=== PATIENT | female | born 1950 | race Caucasian/White ===

== ENCOUNTER 2021-01-27 13:24 | Outpatient (REF) | payer MEDICARE, OTHER, SELFPAY ==
[2021-01-27 15:35] LABS: Hematocrit 39.5 % (37-47); Hemoglobin 12.8 g/dl (12.0-16.0); Mean Corpuscular HGB Conc 32.4 g/dl (31.0-35.0); Mean Corpuscular Hemoglobin 29.6 pg (27.0-33.0); Mean Corpuscular Volume 91.2 fL (80-98); Mean Platelet Volume 10.2 fL (9.4-12.3); Platelet Count 367 X10*3/uL (160-400); Red Blood Count 4.33 X10*6/uL (4.20-5.50); Red Cell Distribution Width 13.4 % (11.0-16.0); White Blood Count 6.3 X10*3/uL (4.8-10.8)
[2021-01-27 16:04] LABS: Alanine Aminotransferase 19 U/L (0-31); Albumin Level 4.5 g/dL (3.5-5.0); Alkaline Phosphatase 65 U/L (39-117); Anion Gap 13 (12-20); Aspartate Amino Transferase 27 U/L (5-31); Bilirubin Total 0.3 mg/dL (0.0-1.0); Blood Urea Nitrogen 21 mg/dL (9-16); Calcium 9.9 mg/dL (8.4-10.2); Carbon Dioxide 27 mmol/L (22-29); Chloride 104 mmol/L (96-108); Estimated Glomerular Filt Rate > 60; Glucose Random 92 mg/dL (60-115); Potassium 4.3 mmol/L (3.3-5.1); Sodium 140 mmol/L (135-145); Total Protein 7.1 g/dL (6.5-8.0)
== END 2021-01-27 13:25 | disposition home or self-care (01) ==
LOC: HO.LAB 13:24
PROVIDERS: PCP Family Medicine; Referring Provider Family Medicine; Visit Provider Nurse Practitioner Family
DX: Z01.818 Encounter for other preprocedural examination (principal); K21.9 Gastro-esophageal reflux disease without esophagitis
CPT/HCPCS: 36415; 80053; 85027; 99202

== ENCOUNTER → 2021-03-09 14:48 | Outpatient (BNVA) | payer MEDICARE, OTHER, SELFPAY | PROVIDERS: PCP Internal Medicine; Referring Provider Nurse Practitioner Family; Visit Provider Internal Medicine | DX: Z01.810 Encounter for preprocedural cardiovascular examination (principal); I25.10 Atherosclerotic heart disease of native coronary artery without angina pectoris; I10 Essential (primary) hypertension; E78.5 Hyperlipidemia, unspecified | CPT/HCPCS: 93005; 99202 ==

== ENCOUNTER 2021-03-23 08:44 | Day surgery (SDC) | payer MEDICARE, OTHER, SELFPAY ==
[2021-03-16 14:34] VITALS: BMI 28.1
--- NOTE | 2021-03-20 08:28 | HO.ANESPROP2 ---
Documented by User: Lita Simonney 03/20/21 08:30 HPI - Anesthesia Eval Consult details Narrative: 71yo F for Colonoscopy Cardiac cleared at low risk PMFSH Active Problems Active Problems: All Active Problems (Updated 03/09/21 @ 15:43 by Korey Coffman MD) Preoperative cardiovascular examination (Acute) Atherosclerotic cardiovascular disease (Acute) Other and unspecified hyperlipidemia (Acute) Essential hypertension (Acute) Past Medical History Medical History Essential hypertension Other and unspecified hyperlipidemia Family History Family History Father Myocardial infarction Hypertension Mother Diabetes Sister CVA (cerebral vascular accident) S/P CABG x 4 Sister Myocardial infarction Surgical History Surgical History H/O bilateral hip replacements History of cardiac catheterization (~07/05/18) History of esophagogastroduodenoscopy (EGD) Hx of blepharoplasty Hx of colonoscopy Social History Social History Are you a primary specialist wound care to a significant other at home: Yes ( had CVA) Patient Tobacco Use Status: Never used Tobacco Are you DNR?: No Advance Directives: No Advance Directives Information Provided: No Advance Directives on File: No Meds Allergies Allergy/AdvReac Type Severity Reaction Status Date / Time silver sulfadiazine Allergy Unknown RASH Verified 03/16/21 14:23 [From SILVADENE] Sulfa (Sulfonamide Allergy Unknown mild Verified 03/16/21 14:23 Antibiotics) Home Medications Medication Instructions Recorded Confirmed Last Taken Type amlodipine 5 mg-benazepril 10 mg 1 cap PO DAILY 01/26/21 03/16/21 Unknown History capsule (Lotrel) ascorbate calcium (vitamin C) 500 500 mg PO BID 01/26/21 03/16/21 Unknown History mg tablet calcium 600 mg-D3 800 unit-mag11 1 tab PO DAILY 01/26/21 03/16/21 Unknown History 50 lm-jncz-zafxhe-kayleen-s.borat tablet cholecalciferol (vitamin D3) 50 50 mcg PO DAILY 01/26/21 03/16/21 Unknown History mcg (2,000 unit) capsule coenzyme Q10 300 mg capsule 300 mg PO DAILY 01/26/21 03/16/21 Unknown History cranberry fruit 400 mg tablet 400 mg PO DAILY 01/26/21 03/16/21 Unknown History fluticasone propionate 50 2 spray INTRANASAL DAILY 01/26/21 03/16/21 Unknown History mcg/actuation nasal spray,suspension (Flonase Allergy Relief) glucosamine sulfate 2KCl 1,000 mg 1,000 mg PO BID 01/26/21 03/16/21 Unknown History capsule metoprolol tartrate 37.5 mg tablet 37.5 mg PO DAILY 01/26/21 03/16/21 03/23/21 History cjpomsyvoisw-famxgwzg-pujzwl tablet 1 tab PO DAILY 01/26/21 03/16/21 Unknown History omega-3 fatty acids 1,000 mg 1,000 mg PO DAILY 01/26/21 03/16/21 Unknown History capsule turmeric root extract 500 mg 500 mg PO DAILY 01/26/21 03/16/21 Unknown History capsule zoledronic acid 4 mg intravenous mg IV 01/26/21 03/09/21 Unknown History solution rosuvastatin 10 mg tablet 10 mg PO BEDTIME 01/27/21 03/16/21 Unknown History aspirin 81 mg tablet,delayed 81 mg PO .QOD tab 03/09/21 03/16/21 Unknown History release (Adult Low Dose Aspirin) pantoprazole 40 mg tablet,delayed 40 mg PO DAILY PRN 03/09/21 03/16/21 03/23/21 History release Exam Exam Date and Time: March 20, 2021 0828 Height,Weight and Vital Signs: Height 5 ft 1 in Weight 67.585 kg Pertinent Lab Results Pertinent Lab Results: Laboratory Tests 01/27/21 01/27/21 15:15 15:15 WBC 6.3 Hgb 12.8 Hct 39.5 Plt Count 367 Sodium 140 Potassium 4.3 Chloride 104 Carbon Dioxide 27 BUN 21 H Creatinine 0.68 Narrative Narrative: EKG 02/2021 sinus rhythm at 66/Min; mild SC prolongation to 202 milliseconds; normal QTc Cardiac cath 2018 mild disease only and no hemodynamically significant lesions and there was no gradient across aortic valve.? LVEDP was normal.?? Assessment and Plan Assessment Anesthesia Assessment: Chart Reviewed Documented by User: Patience Cam MD 03/23/21 09:46 [facility] Past Medical History Medical History Essential hypertension Other and unspecified hyperlipidemia Family History Family History Father Myocardial infarction Hypertension Mother Diabetes Sister CVA (cerebral vascular accident) S/P CABG x 4 Sister Myocardial infarction Surgical History Surgical History H/O bilateral hip replacements History of cardiac catheterization (~07/05/18) History of esophagogastroduodenoscopy (EGD) Hx of blepharoplasty Hx of colonoscopy History of Problems with Anesthesia: No Social History Social History Are you a primary specialist wound care to a significant other at home: Yes ( had CVA) Patient Tobacco Use Status: Never used Tobacco Are you DNR?: No Advance Directives: No Advance Directives Information Provided: No Advance Directives on File: No Meds Allergies Allergy/AdvReac Type Severity Reaction Status Date / Time silver sulfadiazine Allergy Unknown RASH Verified 03/16/21 14:23 [From SILVADENE] Sulfa (Sulfonamide Allergy Unknown mild Verified 03/16/21 14:23 Antibiotics) Home Medications Medication Instructions Recorded Confirmed Last Taken Type amlodipine 5 mg-benazepril 10 mg 1 cap PO DAILY 01/26/21 03/16/21 Unknown History capsule (Lotrel) ascorbate calcium (vitamin C) 500 500 mg PO BID 01/26/21 03/16/21 Unknown History mg tablet calcium 600 mg-D3 800 unit-mag11 1 tab PO DAILY 01/26/21 03/16/21 Unknown History 50 qi-kkfy-ykfjsn-kayleen-s.borat tablet cholecalciferol (vitamin D3) 50 50 mcg PO DAILY 01/26/21 03/16/21 Unknown History mcg (2,000 unit) capsule coenzyme Q10 300 mg capsule 300 mg PO DAILY 01/26/21 03/16/21 Unknown History cranberry fruit 400 mg tablet 400 mg PO DAILY 01/26/21 03/16/21 Unknown History fluticasone propionate 50 2 spray INTRANASAL DAILY 01/26/21 03/16/21 Unknown History mcg/actuation nasal spray,suspension (Flonase Allergy Relief) glucosamine sulfate 2KCl 1,000 mg 1,000 mg PO BID 01/26/21 03/16/21 Unknown History capsule metoprolol tartrate 37.5 mg tablet 37.5 mg PO DAILY 01/26/21 03/16/21 03/23/21 History yeugyefszlat-ljtwiaqt-ejmfjm tablet 1 tab PO DAILY 01/26/21 03/16/21 Unknown History omega-3 fatty acids 1,000 mg 1,000 mg PO DAILY 01/26/21 03/16/21 Unknown History capsule turmeric root extract 500 mg 500 mg PO DAILY 01/26/21 03/16/21 Unknown History capsule zoledronic acid 4 mg intravenous mg IV 01/26/21 03/09/21 Unknown History solution rosuvastatin 10 mg tablet 10 mg PO BEDTIME 01/27/21 03/16/21 Unknown History aspirin 81 mg tablet,delayed 81 mg PO .QOD tab 03/09/21 03/16/21 Unknown History release (Adult Low Dose Aspirin) pantoprazole 40 mg tablet,delayed 40 mg PO DAILY PRN 03/09/21 03/16/21 03/23/21 History release Exam Airway Mallampati Class: II TM Dist: >3cm Neck ROM: Full Heart: RRR Lungs: CTA Assessment and Plan Assessment Anesthesia Assessment: Anesthesia Plan Discussed Final Anesthetic Review History of Problems with Anesthesia: No NPO: Yes ASA Class: II Final Preanesthetic Review: Meds/Allgs Chart Reviewed, Consent Obtained/Reviewed and Anes Risks/Benef Reviewed Patient Risk: Low Procedure Risk: Intermediate Anesthetic Plan Anesthetic Plan: MAC: Disposition: Standard PACU
[2021-03-23 09:15] VITALS: BP 152/80; PULSE 75; RESP 16; TEMP 37; O2SAT 98
[2021-03-23] MEDS: Lactated Ringers 1,000 ML 100 ML IVCONT (09:35)
--- NOTE | 2021-03-23 10:23 | MHC.SHP ---
Pre-Procedural Eval Section A Date of Service: 03/23/21 The patient is an INPATIENT: No The History & Physical has been completed within 30 days and I have reviewed it.: No Section B Chief Complaint: Screening Details of Present Illness: Colon cancer screening, GERD Relevant Family History (Specify if Yes): No Relevant Social History: None Present Medications: see Short Stay Collaborative assessment Medical History: Significant History (Hypertension, hyperlipidemia, coronary artery disease) History of Previous Operations: Relevant previous surgery/procedure and date(s) (Bilateral hip replacement, EGD, colonoscopy, history of cardiac catheterization) Allergies: Allergies Allergy/AdvReac Type Severity Reaction Status Date / Time silver sulfadiazine Allergy Unknown RASH Verified 03/16/21 14:23 [From SILVADENE] Sulfa (Sulfonamide Allergy Unknown mild Verified 03/16/21 14:23 Antibiotics) Review of Systems Sugical H&P ROS: Negative: Constitution, Cardiovascular, Respiratory and Gastrointestinal Exam Surgical H&P Exam: Normal: Heart, Normal: Lungs, Normal: Extremities and Normal: Abdomen Plan Diagnosis/Plan: Unchanged I have reviewed the history and physical and performed a pertinent physical examination on my patient. No changes have occurred unless specified.
--- NOTE | 2021-03-23 10:30 | P.BOP_ITS ---
Brief Operative Note Date of Service: 03/23/21 Pre-op diagnosis: Colon cancer screening, GERD Post-op diagnosis: other (GERD, Gastritis, colon polyp, diverticulosis) Procedure: FLEXIBLE TRANSORAL UPPER GASTROINTESTINAL ENDOSCOPY WITH BIOPSIES AND COLONOSCOPY TILL CECUM WITH BIOPSIES UPPER ENDOSCOPY Consent: Indications for the procedure and potential complications of bleeding, perforation, reaction to medications and missed diagnosis were discussed with the patient and informed consent was obtained. Instrument: Olympus GIF H 190 mid size upper endoscope Monitoring: Vital signs and clinical assessment, continuous EKG monitoring, Pulse oximetry, Carbon Dioxide monitoring and blood pressure monitoring were done throughout the procedure. Procedure: The patient was placed in the left lateral decubitis position and pre-procedure medications were administered and a bite block was placed. The endoscope was inserted into the mouth and advanced under direct vision to the third part of duodenum. A careful inspection was made as the upper endoscope was withdrawn including a retroflexed examination of the proximal stomach; Findings and interventions are described below. Findings: Larynx: Normal Esophagus: GE junction at 36 cms. Irregular Z line - biopsied to check for Whiteside's. Stomach: Mild gastric erythema. Biopsies were obtained. Grade 2 flap valve on retroflexed examination of the cardia. Duodenum: Normal bulb and descending duodenum Intervention: Biopsies as noted above COLONOSCOPY PROCEDURE NOTE Consent: Indications for the procedure and potential complications of bleeding, perforation, reaction to medications and missed diagnosis were discussed with the patient and informed consent was obtained. Instrument: Olympus PCF H 190 L variable stiffness pediatric colonoscope Monitoring: Vital signs and clinical assessment, intermittent blood pressure monitoring, continuous EKG monitoring, Pulse oximetry and Carbon Dioxide monitoring were done throughout the procedure. Colon withdrawl time was 17 minutes. Procedure: The patient was placed in the left lateral decubitis position and pre-procedure medications were administered. After a digital rectal examination of the ano-rectum, the video colonoscope was inserted into the rectum and advanced through the colon to the cecum. The colonoscope was slowly withdrawn in a retrograde panoramic fashion and the colon mucosa was carefully examined including a retroflexed view of the rectum. Findings and interventions are described below. Procedure Difficulty: : Without difficulty Findings: Terminal Ileum: Not evaluated Cecum: Normal Ascending Colon: Normal Transverse Colon: Normal Descending Colon: Moderate diverticulosis Sigmoid Colon: Severe diverticulosis Rectum: A 5-6 mm diminutive appearing polyp removed with a cold biopsy Ano-rectum: Normal Colon preparation: [Excellent] [Good] [Fair] [poor] Impression and Post Procedure Diagnosis: Endoscopy Findings: ESOPHAGUS: Irregular Z line - biopsied to check for Whiteside's. STOMACH: Gastritis Colonoscopy Findings: One diminutive appearing polyp removed Moderate to severe diverticulosis seen in the left colon Plan: Await pathology results Patient has an appointment on 04/13/21 in the GI Clinic with Azul Pizarro FNP- BC. Repeat Colonoscopy interval based on path results - in 5 years if polyps are adenomatous and 10 years if polyps are hyperplastic. Above findings were reviewed with the patient and colon polyps and diverticulosis handouts were given in the discharge area Surgeon: Janet Poe MD Anesthesia: MAC (Dr Cam) Was an Manufacturing Engineering Manager used for this Procedure?: Yes Manufacturing Engineering Manager: Ko Amaya Estimated blood loss (mL): 0 Pathology: other (A- GASTRIC ANTRUM BXS R/O H. PYLORI B- DISTAL ESOPHAGUS BXS R/O WHITESIDE'S C- RECTAL POLYP) Condition: stable Disposition: PACU
[2021-03-23 11:26] VITALS: BP 112/60; PULSE 54; RESP 18; TEMP 36; O2SAT 99
[2021-03-23 11:38] VITALS: PULSE 60; RESP 18; O2SAT 99
[2021-03-23 11:41] VITALS: BP 142/82; PULSE 57; RESP 18; O2SAT 100
--- NOTE | 2021-03-29 18:16 | W.PM.OPN ---
Operative Note Operative Note Date of Service: 03/23/21 Narrative: Pre-op diagnosis:?Colon cancer screening, GERD Post-op diagnosis:?other (GERD, Gastritis, colon polyp, diverticulosis) Procedure:? FLEXIBLE TRANSORAL UPPER GASTROINTESTINAL ENDOSCOPY WITH BIOPSIES AND COLONOSCOPY TILL CECUM WITH BIOPSIES UPPER ENDOSCOPY Consent:?Indications for the procedure and potential complications of bleeding, perforation, reaction to medications and missed diagnosis were discussed with the patient and informed consent was obtained. Instrument:?Olympus GIF H 190 mid size upper endoscope Monitoring: Vital signs and clinical assessment, continuous EKG monitoring, Pulse oximetry, Carbon Dioxide monitoring and blood pressure monitoring were done throughout the procedure. Procedure:?The patient was placed in the left lateral decubitis position and pre-procedure medications were administered and a bite block was placed. The endoscope was inserted into the mouth and advanced under direct vision to the third part of duodenum. A careful inspection was made as the upper endoscope was withdrawn including a retroflexed examination of the proximal stomach; Findings and interventions are described below. Findings: Larynx:? Normal Esophagus:?GE junction at 36 cms.? Irregular Z line - biopsied to check for Whiteside's. Stomach:?Mild gastric erythema. Biopsies were obtained. Grade 2 flap valve on retroflexed examination of the cardia. Duodenum:?Normal bulb and descending duodenum Intervention:?Biopsies as noted above COLONOSCOPY PROCEDURE NOTE Consent:?Indications for the procedure and potential complications of bleeding, perforation, reaction to medications and missed diagnosis were discussed with the patient and informed consent was obtained. Instrument:?Olympus PCF H 190 L variable stiffness pediatric colonoscope Monitoring:?Vital signs and clinical assessment, intermittent blood pressure monitoring, continuous EKG monitoring, Pulse oximetry and Carbon Dioxide monitoring were done throughout the procedure. Colon withdrawl time was 17 minutes. Procedure:?The patient was placed in the left lateral decubitis position and pre-procedure medications were administered. After a digital rectal examination of the ano-rectum, the video colonoscope was inserted into the rectum and advanced through the colon to the cecum. The colonoscope was slowly withdrawn in a retrograde panoramic fashion and the colon mucosa was carefully examined including a retroflexed view of the rectum. Findings and interventions are described below. Procedure Difficulty:?: Without difficulty Findings: Terminal Ileum: Not evaluated Cecum:? Normal Ascending Colon:??Normal Transverse Colon:??Normal Descending Colon:? Moderate diverticulosis Sigmoid Colon:??Severe diverticulosis Rectum:??A 5-6 mm diminutive appearing polyp removed with a cold biopsy Ano-rectum:??Normal Colon preparation: Good after some irrigation Impression and Post Procedure Diagnosis: Endoscopy Findings: ESOPHAGUS: Irregular Z line - biopsied to check for Whiteside's. STOMACH: Gastritis Colonoscopy Findings: One diminutive appearing polyp removed Moderate to severe diverticulosis seen in the left colon Plan: Await pathology results Patient has an appointment on 04/13/21 in the GI Clinic with Azul Pizarro FNP-BC. Repeat Colonoscopy interval based on path results - in 5 years if polyps are adenomatous and 10 years if polyps are hyperplastic. Above findings were reviewed with the patient and colon polyps and diverticulosis handouts were given in the discharge area Surgeon:?Janet Poe MD Anesthesia:?MAC (Dr Cam) Was an Mirror Finishing Machine Operator used for this Procedure?:?Yes Mirror Finishing Machine Operator:?Ko Amaya Estimated blood loss (mL):?0 Pathology:?other (A- GASTRIC ANTRUM BXS? R/O H. PYLORI? B- DISTAL ESOPHAGUS BXS? R/O WHITESIDE'S? C- RECTAL POLYP) Condition:?stable Disposition:?PACU
== END 2021-03-23 12:46 ==
LOC: HO.SSS 08:45
PROVIDERS: PCP Family Medicine; Visit Provider Internal Medicine Gastroenterology
PROC: (CPT 45380; principal; 2021-03-23 10:10)
DX: Z12.11 Encounter for screening for malignant neoplasm of colon (principal); D12.8 Benign neoplasm of rectum; K57.30 Diverticulosis of large intestine without perforation or abscess without bleeding; K21.9 Gastro-esophageal reflux disease without esophagitis; K29.50 Unspecified chronic gastritis without bleeding; B96.81 Helicobacter pylori [H. pylori] as the cause of diseases classified elsewhere; I10 Essential (primary) hypertension; E78.5 Hyperlipidemia, unspecified; Z79.899 Other long term (current) drug therapy; Z88.2 Allergy status to sulfonamides; Z96.643 Presence of artificial hip joint, bilateral
CPT/HCPCS: 45380; 43239; 88305; 88342

== ENCOUNTER → 2021-05-13 08:15 | Outpatient (BNVA) | payer MEDICARE, OTHER, SELFPAY | PROVIDERS: PCP Family Medicine; Referring Provider Internal Medicine; Visit Provider Nurse Practitioner Family | DX: D36.9 Benign neoplasm, unspecified site (principal); K21.9 Gastro-esophageal reflux disease without esophagitis; K29.70 Gastritis, unspecified, without bleeding; Z98.890 Other specified postprocedural states | CPT/HCPCS: 99212 ==

== ENCOUNTER → 2021-07-13 08:21 | Outpatient (BNVA) | payer MEDICARE, OTHER, SELFPAY | PROVIDERS: PCP Family Medicine; Visit Provider Nurse Practitioner Family | DX: K21.9 Gastro-esophageal reflux disease without esophagitis (principal); K29.50 Unspecified chronic gastritis without bleeding; A04.8 Other specified bacterial intestinal infections | CPT/HCPCS: 99212 ==

== ENCOUNTER → 2021-08-17 09:32 | Outpatient (BNVA) | payer MEDICARE, OTHER, SELFPAY | PROVIDERS: PCP Internal Medicine; Referring Provider Family Medicine; Visit Provider Nurse Practitioner Family | DX: K21.9 Gastro-esophageal reflux disease without esophagitis (principal); A04.8 Other specified bacterial intestinal infections | CPT/HCPCS: 99212 ==

== ENCOUNTER → 2021-08-19 14:02 | Outpatient (REF) | payer MEDICARE, OTHER, SELFPAY ==
--- NOTE | 2021-08-19 14:06 | CA_ITS ---
Transthoracic Echocardiogram Patient (Last, First, Middle): Alexandra Hughes, Gender: Female Date of : 1950 Age: 71 Procedure Date: 08/19/2021 Procedure Type: Transthoracic Echocardiogram Location: OP Height: 152.4 cm Weight: 66.68 kg BSA: 1.64 m2 Heart Rate: bpm BP: 118 / 60 mmHg Assistant Professor Of Criminal Justice: Referring MD: Korey Coffman MD Anesthesiologists' Assistant: Derek Sheehan MD Symptoms: I25.10 - Atherosclerotic heart disease of [place] coronary... Study Quality: Good ECG Rhythm: Sinus Conclusions: - 1. Normal LV systolic function with grade 1 diastolic dysfunction 2. Normal cardiac valvular Doppler 3. Normal RV systolic pressure 4. No gross pericardial eff Findings Left Ventricle Normal left ventricular size, thickness, and systolic function. The visually estimated ejection fraction is between 60-65%. Spectral Doppler is indicative of an impaired relaxation filling pattern. E/E prime ratio is <8, consistent with normal filling pressures. Evidence suggests grade I (mild) diastolic dysfunction. Right Ventricle Normal right ventricular cavity size and systolic function. Atria Both atria are normal in size. There is no evidence of interatrial shunt. Aortic Valve Normal aortic valve structure and function. There is no aortic valve stenosis. There is no aortic valve regurgitation. Mitral Valve There is trace mitral valve regurgitation. There is no mitral valve stenosis. Tricuspid Valve The right ventricular systolic pressure is 18 mmHg. There is no evidence of pulmonary hypertension. Great Vessels All visible segments of the aorta are normal in size. The pulmonary artery was not well visualized. Venous The inferior vena cava is normal in size and collapses greater than 50% with inspiration. Pericardium/Pleural There is no evidence of pericardial effusion. Prior Study Comparison No prior study available for comparison. Measurements 2D Linear Measurements IVSd: 0.97 0.6-0.9/0.6-1.0 cm LVIDd: 3.97 3.9-5.3/4.2-5.9 cm LVIDd Index: 2.42 2.4-3.2/2.2-3.1 cm/m2 LVIDs: 2.20 2.0-3.6 cm LVPWd: 1.04 0.7-1.1 cm Ao Root: 3.10 2.1-3.5 cm LA Diam: 3.50 2.7-3.8/3.0-4.0 cm LAIDs Index: 2.13 1.5-2.3 cm/m2 LV Mass: 157.66 67-162/88-224 g LV Mass Index: 96.14 43-95/49-115 g/m2 LVOT Diam: 2.00 3.0+(-)1.3 cm 2D Systolic Function EF 4C: 56.40 >55% EF 2C: 62.60 >55% EF BiP: 58.30 >55% Mitral Valve MV Pk E: 0.74 MV PK A: 0.76 MV Decel Time: 244.00 E/A: 1.00 E'Lateral: 7.83 E'Medial: 5.33 E/E' Med: 13.90 E/E' Lat: 9.50 PHT: 71.00 MVA PHT: 3.10 Decel [place]: 3.04 Aortic Valve AoV Pk Uli: 1.24 AoV Mn Uli: 0.81 AoV VTI: 0.33 AoV Pk Grad: 6.00 Aov Mn Grad: 3.00 BHASKAR Cont.VTI: 2.11 LVOT LVOT Pk Uli: 0.89 LVOT Mn Uli: 0.59 LVOT VTI: 0.22 LVOT Pk Grad: 3.00 LVOT Mn Grad: 2.00 LVOT Diam: 2.00 LVOT Area: 3.14 Diastolic Function MV Pk E: 0.74 MV Pk A: 0.76 E/A: 1.00 E'Medial: 5.33 E/E' Med: 13.90 E' Laterial: 7.83 E/E' Lat: 9.50 Right Ventricle TAPSE (mm): 24.00 Tricuspid Valve TR Pk Uli: 1.92 TR Pk Grad: 15.00 RA Press: 3.00 RVSP: 18.00 Great Vessels Aorta Ao Root-2D: 3.10 2.0-3.7 cm Ao Asc: 3.30 2.1-3.4 cm Pulmonary Valve PV Pk Uli: 0.80 Peak PV Grad: 3.00 Updated in Other Vendor System with Status of Final Derek Sheehan MD electronically signed on 08/19/2021 4:15:10 PM with status of Final
== END ==
LOC: HO.CARD 14:02
PROVIDERS: PCP Internal Medicine; Visit Provider Internal Medicine
DX: I25.10 Atherosclerotic heart disease of native coronary artery without angina pectoris (principal)
CPT/HCPCS: 93306

== ENCOUNTER → 2021-09-10 12:29 | Outpatient (BNVA) | payer MEDICARE, OTHER, SELFPAY | PROVIDERS: PCP Family Medicine; Referring Provider Family Medicine; Visit Provider Internal Medicine | DX: I25.10 Atherosclerotic heart disease of native coronary artery without angina pectoris (principal); I10 Essential (primary) hypertension; E78.5 Hyperlipidemia, unspecified | CPT/HCPCS: 99212 ==

== ENCOUNTER → 2021-12-09 07:55 | Outpatient (BNVA) | payer MEDICARE, OTHER, SELFPAY | PROVIDERS: PCP Family Medicine; Referring Provider Internal Medicine; Visit Provider Nurse Practitioner Family | DX: K21.9 Gastro-esophageal reflux disease without esophagitis (principal); A04.8 Other specified bacterial intestinal infections | CPT/HCPCS: 99212 ==

== ENCOUNTER 2022-03-10 08:38 | Outpatient (REF) | payer MEDICARE, OTHER, SELFPAY ==
[2022-03-11 14:10] LABS: H Pylori Breath Test Negative (Negative)
== END 2022-03-10 08:39 | disposition home or self-care (01) ==
LOC: HO.LNP 08:38
PROVIDERS: PCP Internal Medicine; Referring Provider Internal Medicine; Visit Provider Nurse Practitioner Family
DX: A04.8 Other specified bacterial intestinal infections (principal); K21.9 Gastro-esophageal reflux disease without esophagitis
CPT/HCPCS: 36415; 83013; 99212

== ENCOUNTER → 2022-05-12 09:06 | Outpatient (BNVA) | payer MEDICARE, OTHER, SELFPAY | PROVIDERS: PCP Internal Medicine; Referring Provider Internal Medicine; Visit Provider Nurse Practitioner Family | DX: K21.9 Gastro-esophageal reflux disease without esophagitis (principal); R10.9 Unspecified abdominal pain; Z79.899 Other long term (current) drug therapy | CPT/HCPCS: 99212 ==

== ENCOUNTER 2022-07-09 07:00 | Outpatient (REF) | payer MEDICARE, OTHER, SELFPAY ==
[2022-07-09 07:30] LABS: Hematocrit 41.7 % (37.0-47.0); Hemoglobin 13.1 g/dl (12.0-16.0); Mean Corpuscular HGB Conc 31.4 g/dl (31.0-35.0); Mean Corpuscular Hemoglobin 28.6 pg (27.0-33.0); Mean Platelet Volume 10.2 fL (9.4-12.3); Platelet Count 326 X10*3/uL (160-400); Red Blood Count 4.58 X10*6/uL (4.20-5.50); Red Cell Distribution Width 14.3 % (11.0-16.0)
[2022-07-09 07:55] LABS: Alanine Aminotransferase 21 U/L (0-31); Albumin Level 4.4 g/dL (3.5-5.0); Alkaline Phosphatase 71 U/L (39-117); Anion Gap 14 (12-20); Aspartate Amino Transferase 24 U/L (5-31); Bilirubin Total 0.6 mg/dL (0.0-1.0); Blood Urea Nitrogen 17 mg/dL (9-16); Calcium 9.9 mg/dL (8.4-10.2); Carbon Dioxide 27 mmol/L (22-29); Chloride 104 mmol/L (96-108); Estimated Glomerular Filt Rate > 60; Glucose Random 94 mg/dL (60-115); Potassium 4.1 mmol/L (3.3-5.1); Sodium 141 mmol/L (135-145)
== END 2022-07-09 07:01 | disposition home or self-care (01) ==
LOC: HO.LAB 07:00
PROVIDERS: PCP Internal Medicine; Visit Provider Nurse Practitioner Family
DX: R10.9 Unspecified abdominal pain (principal); K21.9 Gastro-esophageal reflux disease without esophagitis
CPT/HCPCS: 36415; 80053; 85027

== ENCOUNTER → 2022-08-13 13:04 | Outpatient (BNVA) | payer MEDICARE, OTHER, SELFPAY | PROVIDERS: PCP Internal Medicine; Visit Provider Urology | DX: N28.89 Other specified disorders of kidney and ureter (principal) | CPT/HCPCS: 99202 ==

== ENCOUNTER → 2022-09-15 15:16 | Outpatient (BNVA) | payer MEDICARE, OTHER, SELFPAY | PROVIDERS: PCP Internal Medicine; Visit Provider Nurse Practitioner Family | DX: N28.89 Other specified disorders of kidney and ureter (principal); D49.519 Neoplasm of unspecified behavior of unspecified kidney | CPT/HCPCS: 99212 ==

== ENCOUNTER 2022-10-01 11:37 | Day surgery (SDC) | payer MEDICARE, OTHER, SELFPAY ==
[2022-10-01] VITALS (10 sets, daily range): BP systolic 105–137; BP diastolic 57–79; PULSE 69–105; RESP 16; TEMP 36.1–36.5; O2SAT 97–100; BMI 25.2
--- NOTE | ~2022-10-01 | CT_ITS ---
EXAMINATION: CT ABDOMEN WITH AND WITHOUT CONTRAST CT FLUOROSCOPIC-GUIDED RIGHT RENAL MASS CORE BIOPSY CLINICAL INFORMATION: Right renal mass. COMPARISON: MRI of 09/24/2022. TECHNIQUE: Contiguous axial thin section helical images of the abdomen and pelvis were performed without and then following the administration of 85 mL of Omnipaque 350 intravenous contrast. The data set was reformatted in the coronal and sagittal planes and reviewed on an independent workstation. Following this, CT fluoroscopic guidance was used to perform core biopsy of the right kidney. DLP: 361 and 301 milligray FINDINGS: LUNG BASES: No parenchymal disease identified. No pleural or pericardial effusion seen. LIVER, GALLBLADDER, BILIARY TREE: There are numerous low-density lesions seen within the liver, likely representing cysts as have been seen on previous MRI study performed elsewhere. No intrahepatic bile duct dilatation is identified. No definite solid mass is seen. The gallbladder appears unremarkable without evidence of calculi, wall thickening, or pericholecystic fluid. PANCREAS: Unremarkable. No abnormal mass or peripancreatic inflammatory change identified. SPLEEN: Unremarkable. ADRENAL GLANDS: There is a 9 mm left adrenal gland nodule with Hounsfield unit measurements of 18 and for which no follow up is necessary. KIDNEYS: RIGHT: There are numerous right renal cysts present, the largest within the lower pole measuring approximately 2.6 x 2.3 cm in size. This has an appearance of a simple cyst. No hydronephrosis identified. No right renal calculi are seen. Within the mid to lower pole, just superior to the lower pole cyst, there is a renal mass which is seen to enhance from measurement of approximately 23 Hounsfield units without contrast to 80 Hounsfield units with contrast. This measures approximately 1.8 x 1.5 cm in size with no normal renal tissue seen between the mass and cyst. LEFT: There is a 3 mm nonobstructing upper pole calculus. No hydronephrosis. Multiple cysts are present. Largest within the upper pole measuring 2.1 x 1.9 cm in size, which appears simple and for which follow up is not recommended. No suspicious solid mass is seen. URETERS: The visualized ureter is unremarkable. BOWEL LOOPS: No dilated loops of large or small bowel identified. No free air identified. LYMPHOVASCULAR STRUCTURES: Unremarkable. BONES: Status post previous bilateral hip arthroplasty. There is significant multilevel degenerative disc disease and facet arthropathy present throughout the lower thoracic and lumbar spine, with scoliosis at the thoracolumbar junction convex left and mild scoliosis of the lumbar spine convex right. No suspicious destructive bony lesion identified. ABDOMINAL WALL: No anterior abdominal wall hernia is appreciated. There is noted to be atrophy of the right psoas muscle. RIGHT RENAL CORE BIOPSY: Informed consent was obtained from the patient prior to the procedure. During this process, the procedure and potential alternatives were explained, along with the intended outcome and benefits. The risks of the procedure, as well as the risk of not doing the procedure, were discussed. The patient was given the opportunity to ask questions regarding the procedure and appeared competent to make medical decisions. A signed consent form which documents this discussion was placed in the medical record. Using sterile technique and CT fluoroscopic guidance from a posterior approach with patient lying in the left lateral decubitus position, a 17-gauge guiding needle was directed to the right renal lesion just superior to the cyst. A total of 7 core biopsies were obtained from varying locations, including with aspiration through the needle demonstrating that the coaxial needle was not in the fluid-filled cyst. The patient tolerated the procedure and left the department in stable condition. CT/CT abdomen wo/w IV con IMPRESSION: 1. Right renal enhancing mass for which CT fluoroscopic-guided core biopsy was performed. 2. Hepatic and bilateral renal cysts. 3. A 3 mm nonocclusive left renal calculus.
[2022-10-01 11:56] LABS: MANUAL DIFF FLAG NO
[2022-10-01 11:59] LABS: Basophils Percent Auto 0.6 % (0-2); Eosinophils Absolute Auto 0.1 X10*3/uL (0.0-0.4); Eosinophils Percent Auto 1.6 % (0-4); Hematocrit 41.7 % (37.0-47.0); Hemoglobin 13.4 g/dl (12.0-16.0); Imm Gran Abs Auto 0.02 X10*3/uL (0.00-0.03); Imm Gran Pct Auto 0.3 % (0.0-0.4); Lymphocytes Absolute Auto 2.7 X10*3/uL (1.2-4.9); Mean Corpuscular HGB Conc 32.1 g/dl (31.0-35.0); Mean Corpuscular Hemoglobin 29.3 pg (27.0-33.0); Mean Platelet Volume 9.9 fL (9.4-12.3); Monocytes Absolute Auto 0.5 X10*3/uL (0.1-1.2); Monocytes Percent Auto 7.3 % (2-11); Neutrophils Absolute Auto 3.6 x10*3/uL (2.0-8.3); Neutrophils Percent Auto 51.2 % (45-73); Platelet Count 340 X10*3/uL (160-400); Red Blood Count 4.58 X10*6/uL (4.20-5.50); Red Cell Distribution Width 13.6 % (11.0-16.0)
[2022-10-01 12:07] LABS: INTERNATIONAL NORM RATIO 0.9 (0.9-1.1); Prothrombin Time 10.4 SEC (10.0-13.1)
[2022-10-01 12:10] LABS: Partial Thromboplastin Time 27.7 SEC (26.0-36.4)
[2022-10-04 08:30] LABS: Creatinine POC 0.5 mg/dL (0.5-1.4); GFR POC > 60
== END 2022-10-01 18:30 | disposition home or self-care (01) ==
PROVIDERS: Nurse Practitioner Family; PCP Internal Medicine; Visit Provider Radiology Diagnostic Radiology
DX: C64.1 Malignant neoplasm of right kidney, except renal pelvis (principal); N28.1 Cyst of kidney, acquired; N20.0 Calculus of kidney; K21.9 Gastro-esophageal reflux disease without esophagitis; I10 Essential (primary) hypertension; E78.5 Hyperlipidemia, unspecified; Z79.82 Long term (current) use of aspirin; Z79.51 Long term (current) use of inhaled steroids; Z79.899 Other long term (current) drug therapy; Z88.2 Allergy status to sulfonamides; Z86.19 Personal history of other infectious and parasitic diseases; Z96.643 Presence of artificial hip joint, bilateral
CPT/HCPCS: 36415; 50200; 74170; 77012; 82565; 85025; 85610; 85730; 88305; 88333; 88341; 88342; 99152; 99153; J2250; J3010

== ENCOUNTER → 2022-10-13 14:02 | Outpatient (BNVA) | payer MEDICARE, OTHER, SELFPAY | PROVIDERS: PCP Internal Medicine; Visit Provider Nurse Practitioner Family | DX: C64.9 Malignant neoplasm of unspecified kidney, except renal pelvis (principal); N28.89 Other specified disorders of kidney and ureter; D49.519 Neoplasm of unspecified behavior of unspecified kidney | CPT/HCPCS: 99212 ==

== ENCOUNTER → 2022-11-09 08:23 | Outpatient (BNVA) | payer MEDICARE, OTHER, SELFPAY | PROVIDERS: PCP Internal Medicine; Visit Provider Nurse Practitioner Family | DX: K21.9 Gastro-esophageal reflux disease without esophagitis (principal) | CPT/HCPCS: 99212 ==

== ENCOUNTER 2022-11-23 09:54 | Day surgery (SDC) | payer MEDICARE, OTHER, SELFPAY ==
--- NOTE | 2022-11-22 13:24 | HO.ANESPROP2 ---
HPI - Anesthesia Eval Consult details Narrative: 72yo F for Right Kidney Cryo-Ablation PMFSH Active Problems Active Problems: All Active Problems (Updated 10/13/22 @ 21:08 [facility] Renal cell carcinoma (Acute) Renal neoplasm (Acute) Renal mass (Acute) Gastroesophageal reflux disease (Acute) Helicobacter pylori (H. pylori) (Acute) Tubular adenoma (Acute) Preoperative cardiovascular examination (Acute) Atherosclerotic cardiovascular disease (Acute) Other and unspecified hyperlipidemia (Acute) Essential hypertension (Acute) Past Medical History Medical History (Updated 11/23/22 @ 11:02 by Abby Castro, RN) Essential hypertension Gastroesophageal reflux disease Helicobacter pylori (H. pylori) Kidney tumor Other and unspecified hyperlipidemia Tubular adenoma Family History Family History Father Myocardial infarction Hypertension Mother Diabetes Sister CVA (cerebral vascular accident) S/P CABG x 4 Sister Myocardial infarction Surgical History Surgical History (Updated 11/23/22 @ 11:04 by Abby Castro RN) H/O bilateral hip replacements History of bunionectomy of right great toe History of cardiac catheterization (~07/05/18) History of esophagogastroduodenoscopy (EGD) History of surgery on arm Hx of blepharoplasty Hx of colonoscopy History of Problems with Anesthesia: No Social History Social History Are you a primary manager medicare marketing to a significant other at home: No (lives alone; recently 07/2022) Patient Tobacco Use Status: Never used Tobacco Use of substances other than those prescribed or required for medical reasons: No Are you DNR?: No Advance Directives: No Advance Directives Information Provided: Yes Advance Directives Date on File: 10/01/22 Meds Allergies Allergy/AdvReac Type Severity Reaction Status Date / Time silver sulfadiazine Allergy Mild RASH Verified 11/23/22 11:03 [From SILVADENE] Sulfa (Sulfonamide Allergy Mild mild Verified 11/23/22 11:03 Antibiotics) Home Medications Medication Instructions Recorded Confirmed Last Taken Type ascorbate calcium (vitamin C) 500 500 mg PO BID 01/26/21 11/09/22 Unknown History mg tablet calcium 600 mg-D3 800 unit-mag11 1 tab PO DAILY 01/26/21 11/09/22 Unknown History 50 qr-fxpt-sucswy-kayleen-s.borat tablet cholecalciferol (vitamin D3) 50 50 mcg PO DAILY 01/26/21 11/09/22 Unknown History mcg (2,000 unit) capsule coenzyme Q10 300 mg capsule 300 mg PO DAILY 01/26/21 11/09/22 Unknown History cranberry fruit 400 mg tablet 400 mg PO DAILY 01/26/21 11/09/22 Unknown History fluticasone propionate 50 2 spray intranasal DAILY 01/26/21 11/09/22 Unknown History mcg/actuation nasal spray,suspension (Flonase Allergy Relief) glucosamine sulfate 2KCl 1,000 mg 1,000 mg PO BID 01/26/21 11/09/22 Unknown History capsule ocgjusfiqxkw-rgedacfb-nfljum tablet 1 tab PO DAILY 01/26/21 11/09/22 Unknown History omega-3 fatty acids 1,000 mg 1,000 mg PO DAILY 01/26/21 11/09/22 Unknown History capsule turmeric root extract 500 mg 500 mg PO DAILY 01/26/21 11/09/22 Unknown History capsule zoledronic acid 4 mg intravenous mg IV 01/26/21 11/09/22 Unknown History solution Exam Exam Date and Time: November 22, 2022 1324 Pertinent Lab Results Pertinent Lab Results: Laboratory Tests 07/09/22 10/01/22 07:07 11:51 WBC 7.0 Hgb 13.4 Hct 41.7 Plt Count 340 Sodium 141 Potassium 4.1 Chloride 104 Carbon Dioxide 27 BUN 17 H Creatinine 0.68 Narrative Narrative: ECHO 08/2021 Conclusions: - 1.? Normal LV systolic function with grade 1 diastolic ? dysfunction? 2. Normal cardiac valvular Doppler ? 3. Normal RV systolic pressure ? 4. No gross pericardial eff? EKG 02/2021 sinus rhythm at 66/Min; mild NH prolongation to 202 milliseconds; normal QTc Cardiac cath 2018 mild disease only and no hemodynamically significant lesions and there was no gradient across aortic valve.? LVEDP was normal.?? Assessment and Plan Assessment Anesthesia Assessment: Chart Reviewed Final Anesthetic Review History of Problems with Anesthesia: No
[2022-11-23] VITALS (8 sets, daily range): BP systolic 118–149; BP diastolic 56–74; PULSE 63–77; RESP 16–18; TEMP 36.6–36.9; O2SAT 95–98; BMI 26.6
--- NOTE | ~2022-11-23 | CT_ITS ---
EXAMINATION: CT-GUIDED ABLATION RENAL CLINICAL INFORMATION: Right renal mass. COMPARISON: Previous MR of the abdomen 08/2022, CT of the abdomen 09/2022. TECHNIQUE: Procedure and risks and benefits including bleeding, infection, injury to the kidney or adjacent organs was discussed with the patient and informed consent was obtained. Patient was initially positioned in the prone position. Limited axial images through the kidneys without contrast was performed. Unfortunately, window to the known right renal mass was obscured due to overlying colon. Patient was repositioned in the supine/slight left decubitus position. Limited axial images of the kidneys through the abdomen were performed following IV contrast. Right side was prepped and draped in the usual sterile fashion. The skin and soft tissues were anesthetized with 1% lidocaine plain. Using CT guidance, two 17-gauge 17.5 cm in length cryoablation probes were positioned in the right renal mass. Two freeze thaw cycles with 10 minute freeze and a 6 minute thaw were performed. CT imaging during the freeze thaw cycle was performed. Anesthesia was provided by the anesthesia department. FINDINGS: There is a 1.5 cm low-attenuation lesion in the lateral mid right kidney that was targeted for cryoablation. Images demonstrate adequate positioning of the cryoablation probes in the lesion. The lesion is obscured during ice ball formation. Seizure imaging demonstrated no evidence of hemorrhage. Patient received total of 1.25 mL Omnipaque 350 intravenous contrast. Patient dose 5[address]/CT guided ablation renal IMPRESSION: CT-guided right renal cryoablation.
[2022-11-23 10:30] LABS: MANUAL DIFF FLAG NO
[2022-11-23 10:32] LABS: Basophils Percent Auto 0.5 % (0-2); Eosinophils Absolute Auto 0.2 X10*3/uL (0.0-0.4); Eosinophils Percent Auto 2.2 % (0-4); Hematocrit 39.6 % (37.0-47.0); Hemoglobin 12.9 g/dl (12.0-16.0); Imm Gran Abs Auto 0.03 X10*3/uL (0.00-0.03); Imm Gran Pct Auto 0.4 % (0.0-0.4); Lymphocytes Absolute Auto 2.8 X10*3/uL (1.2-4.9); Lymphocytes Percent Auto 34.9 % (20-40); Mean Corpuscular HGB Conc 32.6 g/dl (31.0-35.0); Mean Corpuscular Hemoglobin 29.5 pg (27.0-33.0); Mean Corpuscular Volume 90.6 fL (80.0-98.0); Mean Platelet Volume 9.7 fL (9.4-12.3); Monocytes Absolute Auto 0.5 X10*3/uL (0.1-1.2); Monocytes Percent Auto 6.3 % (2-11); Neutrophils Absolute Auto 4.4 x10*3/uL (2.0-8.3); Neutrophils Percent Auto 55.7 % (45-73); Platelet Count 323 X10*3/uL (160-400); Red Blood Count 4.37 X10*6/uL (4.20-5.50); Red Cell Distribution Width 13.4 % (11.0-16.0); White Blood Count 7.9 X10*3/uL (4.8-10.8)
[2022-11-23 10:38] LABS: Prothrombin Time 10.9 SEC (10.0-13.1)
[2022-11-23 10:40] LABS: Partial Thromboplastin Time 28.5 SEC (26.0-36.4)
[2022-11-23] MEDS: ondansetron HCL 4 MG/2 ML VIAL IVPUSH (15:09)
[2022-11-23] MEDS: Acetaminophen 1,000 MG/100 ML PIGGYBACK 400 MG IV (15:18)
[2022-11-23] MEDS: iohexoL 350 MG/ML 100 ML INFUS..BTL 125 ML IV (16:52)
--- NOTE | 2023-05-19 16:13 | W.PM.OPN ---
Operative Note Operative Note Date of Service: 11/23/22 Narrative: Preop: Left renal mass/carcinoma Postop: Same Procedure: CT image guided cryoablation of left renal carcinoma performed Interventionalist - Dr. Patience Porras Intervention radiology with Dr. Porras performed image guided cryoablation. Please see Dr. Porras's note for full dictation comments.
== END 2022-11-23 17:00 | disposition home or self-care (01) ==
PROVIDERS: Radiology Diagnostic Radiology; PCP Internal Medicine; Visit Provider Urology
DX: C64.1 Malignant neoplasm of right kidney, except renal pelvis (principal); N28.89 Other specified disorders of kidney and ureter; Z86.19 Personal history of other infectious and parasitic diseases; I10 Essential (primary) hypertension; E78.5 Hyperlipidemia, unspecified; Z79.899 Other long term (current) drug therapy; Z88.2 Allergy status to sulfonamides; Z88.8 Allergy status to other drugs, medicaments and biological substances; Z96.643 Presence of artificial hip joint, bilateral
CPT/HCPCS: 36415; 50593; 77013; 85025; 85610; 85730; C2618; J0131; J0690; J2250; J2405; J2550; J3010

== ENCOUNTER → 2022-12-14 12:53 | Outpatient (BNVA) | payer MEDICARE, OTHER, SELFPAY | PROVIDERS: PCP Internal Medicine; Referring Provider Internal Medicine; Visit Provider Internal Medicine | DX: I44.0 Atrioventricular block, first degree (principal); I49.1 Atrial premature depolarization; I25.10 Atherosclerotic heart disease of native coronary artery without angina pectoris; I10 Essential (primary) hypertension; E78.49 Other hyperlipidemia; Z98.890 Other specified postprocedural states | CPT/HCPCS: 93005; 99212 ==

== ENCOUNTER → 2023-02-08 08:55 | Outpatient (BNVA) | payer MEDICARE, OTHER, SELFPAY | PROVIDERS: PCP Internal Medicine; Visit Provider Nurse Practitioner Family | DX: K21.9 Gastro-esophageal reflux disease without esophagitis (principal); Z79.899 Other long term (current) drug therapy | CPT/HCPCS: 99212 ==

== ENCOUNTER 2023-03-16 08:59 | Outpatient (AMB) | payer MEDICARE, OTHER, SELFPAY ==
--- NOTE | 2023-03-16 09:15 | MHC.OFFVIS ---
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 Patient she will continue avoiding dietary triggers and late night snacking. Staying upright for minimum 3 hours after meals discussed with patient. I will see patient in 5 weeks, sooner on as needed basis. Patient is agreeable to this plan and verbalizes understanding of instructions. She was given the opportunity to ask questions and all questions answered. TODAY'S VISIT Patient is here today for follow-up. Patient reports that she has been doing well. Takes pantoprazole every morning and denies any acid reflux, dyspepsia, dysphagia or odynophagia. Patient states that when she eats larger meals on social gatherings she will have occasional acid reflux and dyspepsia, however she tries to avoid eating large meals. Patient denies any nausea or vomiting. Reports to be moving her bowels without any issues. Patient is feeling well otherwise. Going for treatments with chiropractor and has been starting to feel better. Reports to have normal range of motion in her shoulder and her lower extremities. Patient denies melena, hematochezia, unintentional weight loss or ribbon like stools. Patient is due to go for colonoscopy in 2025 [facility] Medical History Essential hypertension Gastroesophageal reflux disease Helicobacter pylori (H. pylori) Kidney tumor Other and unspecified hyperlipidemia Tubular adenoma Surgical History H/O bilateral hip replacements History of bunionectomy of right great toe History of cardiac catheterization (~07/05/18) History of esophagogastroduodenoscopy (EGD) History of surgery on arm Hx of blepharoplasty Hx of colonoscopy Family History Father Myocardial infarction Hypertension Mother Diabetes Sister CVA (cerebral vascular accident) S/P CABG x 4 Sister Myocardial infarction Social History Are you a primary hearing care practitioner to a significant other at home: No (lives alone; recently 07/2022) Patient Tobacco Use Status: Never used Tobacco Advance Directives Date on File: 10/01/22 Review of Systems Const Denies weight gain and Denies weight loss ENT Reports no additional complaints, Denies dysphagia and Denies odynophagia Card Reports no additional complaints Resp Reports no additional complaints GI Denies abdominal pain, Denies belching, Denies melena, Denies bloating, Denies change in bowel habits, Denies dysphagia, Denies excessive flatus, Denies dyspepsia, Reports heartburn (occasional), Denies diarrhea, Denies loose stools, Denies nausea, Denies odynophagia and Denies vomiting Reports no additional complaints Musc Reports no additional complaints Neuro Reports no additional complaints Psych Reports no additional complaints Endo Reports no additional complaints Physical Exam Vital Signs: Last Vital Signs Pulse 85 03/16/23 09:16 BP 168/79 H 03/16/23 09:16 BMI result Body Mass Index 28.2 Const Other: Ambulating using a cane General: healthy appearing, no acute distress and well developed Nutritional Appearance: well nourished Orientation/consciousness: patient oriented x3 HEENT Head: Yes normal to inspection, Yes normocephalic and Yes atraumatic Face and sinus: Yes normal facial exam Mouth: Normal oral and palatal mucosa present Throat: Yes posterior oropharynx normal, Yes tonsils normal and Yes uvula midline Eyes General: appearance normal, both eyes and all related structures Neck Neck: Yes normal visual inspection, Yes full ROM and Yes trachea midline Thyroid: Thyroid normal Resp Effort & Inspection: normal respiratory effort, able to speak in complete sentences, no tracheal deviation and symmetric chest movement Auscultation: clear to auscultation bilaterally Cardio Rate: regular rate Heart sounds: S1 normal heart sound present and S2 normal heart sound present GI Inspection: Yes normal to inspection and No distended Palpation (GI): Soft to palpation, not firm, nontender and No hepatosplenomegaly present Auscultation: normal bowel sounds General: Yes no CVA tenderness Back/Spine/Pelvis Back: no CVA tenderness Skin General skin exam: elasticity normal, turgor normal and dry skin Neuro General: patient oriented x3 Psych Appearance: grossly normal Mental Status: mental status grossly normal Speech and movement: Normal speech and movement present Affect: normal affect Assessment & Plan Assessment & Plan (1) Gastroesophageal reflux disease: Code(s): K21.9 - Gastro-esophageal reflux disease without esophagitis Qualifiers: Esophagitis presence: without esophagitis Qualified Code(s): K21.9 - Gastro-esophageal reflux disease without esophagitis Plan: Continue pantoprazole, continue avoiding dietary triggers in late night snacking. Staying upright for minimal 3 hours after meals discussed with patient. I will see patient in 6 months, sooner on as needed basis. Patient is agreeable to this plan and verbalizes understanding of instructions. She was given the opportunity to ask questions all questions answered. Thank you for allowing me to participate in her care Coding Level of Care Code Est Pt Level 3 (67228) Diagnoses Gastroesophageal reflux disease K21.9 Esophagitis presence: without esophagitis Time Spent (min) 25 Comment 15 minutes spent with patient and additional 10 minutes spent reviewing her records
[2023-03-16 09:16] VITALS: BP 168/79; PULSE 85; BMI 28.2
== END 2023-03-16 09:48 | disposition home or self-care (01) ==
PROVIDERS: PCP Internal Medicine; Visit Provider Nurse Practitioner Family
DX: K21.9 Gastro-esophageal reflux disease without esophagitis (principal)
CPT/HCPCS: 99213

== ENCOUNTER → 2023-03-16 08:59 | Outpatient (BNVA) | payer MEDICARE, OTHER, SELFPAY | PROVIDERS: PCP Internal Medicine; Visit Provider Nurse Practitioner Family | DX: K21.9 Gastro-esophageal reflux disease without esophagitis (principal) | CPT/HCPCS: 99212 ==

== ENCOUNTER 2023-04-02 23:12 | Emergency (ER) | payer OTHER, SELFPAY ==
--- NOTE | ~2023-04-02 | CT_ITS ---
EXAMINATION: CT HEAD WITHOUT CONTRAST CLINICAL INFORMATION: Acute head injury. Rule out intracranial hemorrhage. COMPARISON: None. TECHNIQUE: Contiguous axial imaging was performed from the skull base to vertex without intravenous contrast. This CT examination was performed using dose optimization techniques as appropriate, variously including the following: * Automated exposure control * Adjustment of mA and/or kV according to patient size (this includes techniques or standardized protocols for targeted exams where dose is matched to indication/reason for exam; i.e. extremities or head) Use of iterative reconstruction technique DLP: 487 mGy-cm. FINDINGS: There is no evidence of acute intracranial hemorrhage or territorial infarction. No abnormal mass effect or midline shift is seen. Aguero to white matter differentiation is well preserved. No extra-axial fluid collections are identified. No hydrocephalus. No significant volume loss. There is no abnormal attenuation within the brain parenchyma. Right frontal subgaleal hematoma. No calvarial fracture. The mastoid air cells and visualized portions of the paranasal sinuses are well aerated. CT/CT head/brain wo IV con IMPRESSION: No acute intracranial pathology.
[2023-04-02 23:16] VITALS: BP 208/104; BP 210/110; PULSE 87; PULSE 97; RESP 18; TEMP 37.2; O2SAT 98; BMI 26.9
[2023-04-02 23:36] VITALS: BP 181/86; PULSE 84; RESP 16; TEMP 36.8; O2SAT 99
[2023-04-02 23:46] VITALS: BP 181/86; PULSE 74; O2SAT 96
--- NOTE | 2023-04-03 00:13 | ED_ITS ---
HPI - Fall General Chief Complaint: Fall Stated Complaint: fall w/head strike, not on thinneer Time Seen by Provider: 04/02/23 23:47 Source: patient and EMS Mode of arrival: EMS Limitations: no limitations History of Present Illness HPI Narrative: 73-year-old female not on blood thinning medications presents after mechanical fall hitting her head. She had her head on the dresser after her clocks got caught on the rug. She did not lose consciousness. She has a mild head pain. She denies any nausea vomiting or focal neurologic deficit. There is no clear relieving or exacerbating features. She denies any additional injuries. Her pain and discomfort again is mild and aching in nature. Does not radiate. Worse with palpation. Related Data Home Medications Medication Instructions Recorded Confirmed ascorbic acid (vitamin C) 1,000 mg 1,000 mg PO DAILY 04/02/23 04/02/23 tablet (Vitamin C) glucosamine sulfate 500 mg tablet 1,000 mg PO BID 04/02/23 04/02/23 (Glucosamine) omega-3 fatty acids 500 mg capsule 500 mg PO DAILY 04/02/23 04/02/23 pantoprazole 40 mg tablet,delayed 40 mg PO DAILY 04/02/23 04/02/23 release rosuvastatin 10 mg tablet 10 mg PO BEDTIME 04/02/23 04/02/23 Allergies Allergy/AdvReac Type Severity Reaction Status Date / Time silver sulfadiazine Allergy Mild RASH Verified 03/16/23 09:16 [From SILVADENE] Sulfa (Sulfonamide Allergy Mild mild Verified 03/16/23 09:16 Antibiotics) Review of Systems Review of Systems: CONSTITUTIONAL: Denies weight loss, fever and chills. HEENT: Denies changes in vision and hearing. RESPIRATORY: Denies SOB and cough. CV: Denies palpitations no CP. GI: Denies abdominal pain, nausea, vomiting and diarrhea. : Denies dysuria and urinary frequency. MSK: Denies myalgia and joint pain. SKIN: Denies rash and pruritus. NEUROLOGICAL: Denies headache and syncope. PSYCHIATRIC: Denies recent changes in mood. Denies anxiety and depression. All other ROS are negative unless in HPI PMFSH Past Medical History Medical History Essential hypertension Gastroesophageal reflux disease Helicobacter pylori (H. pylori) Kidney tumor Other and unspecified hyperlipidemia Tubular adenoma Surgical History H/O bilateral hip replacements History of bunionectomy of right great toe History of cardiac catheterization (~07/05/18) History of esophagogastroduodenoscopy (EGD) History of surgery on arm Hx of blepharoplasty Hx of colonoscopy Family History Family History Father Myocardial infarction Hypertension Mother Diabetes Sister CVA (cerebral vascular accident) S/P CABG x 4 Sister Myocardial infarction Social History Social History Are you a primary respiratory care technician to a significant other at home: No (lives alone; recently 07/2022) Patient Tobacco Use Status: Never used Tobacco Advance Directives: Yes Advance Directives on File: Yes Advance Directives Date on File: 10/01/22 Physical Exam Vital Signs: Vital Signs: Last Vital Signs Temp 98.2 F 04/02/23 23:36 Pulse 74 04/02/23 23:46 Resp 16 04/02/23 23:36 BP 181/86 H 04/02/23 23:46 Pulse Ox 96 04/02/23 23:46 O2 Del Method Room Air 04/02/23 23:36 BMI result Body Mass Index 26.9 GEN: Well developed, no acute distress, alert, oriented HEENT: Right forehead hematoma and abrasion, normal external ears, nose appears normal, no oropharyngeal edema or exudates Eyes: Normal to appearance Neck: Supple, no lymphadenopathy Respiratory: Talks in complete sentences, no respiratory distress, clear to auscultation bilaterally Cardiovascular: Regular rate and rhythm, no murmurs rubs or gallops Abdomen: Soft, nontender, nondistended, no guarding, no rebound Back: No CVA tenderness Extremities: No clubbing cyanosis or edema Neurologic: No focal neurologic deficits, cranial nerves 2-12 intact, strength is 5/5 bilaterally Skin: No rash Course Course Course Narrative: The workup is complete there is no evidence of intracranial bleeding. She has a forehead hematoma. Recommending ice several times daily. She follow-up with her primary care provider as needed. Medications Administered Discontinued Medications Generic Name Dose Route Start Last Admin Trade Name Freq PRN Reason Stop Dose Admin Ondansetron HCl 4 mg 04/03/23 00:50 04/03/23 01:11 Ondansetron Odt 4 Mg Tab.Taya GARCIAU 04/03/23 00:51 4 mg ONCE ONE Administration Medical Decision Making Medical Decision Making [facility] Narrative: Patient presents with acute head injury. Differential diagnosis includes forehead hematoma, head injury, subdural hematoma, epidural hematoma, subarachnoid hemorrhage. Plan to CT scan the head. There is no indication for laboratory analysis is the fall was mechanical. Differential Diagnosis Differential Diagnoses: The differential diagnosis associated with the presentation includes (See above) Admission/Observation Consideration of admission/observation: Escalation of care including admission/observation considered Independent Interpretation I performed an independent interpretation of an: CT Scan (No acute intracranial bleeding) Radiology Impression Discussion of test interpretation with radiology: I have reviewed the radiologist's reading. Radiologist Impression: FINDINGS: There is no evidence of acute intracranial hemorrhage or territorial infarction. No abnormal mass effect or midline shift is seen. Aguero to white matter differentiation is well preserved. No extra-axial fluid collections are identified. No hydrocephalus. No significant volume loss. There is no abnormal attenuation within the brain parenchyma. Right frontal subgaleal hematoma. No calvarial fracture. The mastoid air cells and visualized portions of the paranasal sinuses are well aerated. ? CT/CT head/brain wo IV con IMPRESSION: No acute intracranial pathology. ? Dictated By: Jose Francisco Esteban MD Signed By: <Electronically signed by Jose Francisco Esteban MD in OV> 04/03/23 0103 Independent Historian Clinical information obtained from an independent historian. History obtained from or confirmed by: EMS Prescription Management I considered prescription management with: Pain Medication Discharge Plan Discharge Clinical Impression: Acute head injury, Traumatic hematoma of forehead, Abrasion, Elevated blood pressure reading Patient Disposition: Home, Self-Care Instructions: Head Injury (ED), Hypertension (ED) Prescriptions: No Action ascorbic acid (vitamin C) [Vitamin C] 1,000 mg Tablet 1,000 mg PO DAILY glucosamine sulfate [Glucosamine] 500 mg Tablet 1,000 mg PO BID Rx Instructions: administer with meals pantoprazole 40 mg tablet,delayed release (DR/EC) 40 mg PO DAILY rosuvastatin 10 mg tablet 10 mg PO BEDTIME Fish Oil 500 mg Capsule 500 mg PO DAILY Referrals: Provider, primary [Other] (Follow-up within 1 week for repeat blood pressure check)
--- NOTE | 2023-04-03 00:58 | MHC.EDTECH ---
PATIENT WAS ASSISTED FOR AMBULATION TO BATHROOM AND BACK TO BED ,PT VOID LG AMOUNT OF URINE .
[2023-04-03] MEDS: Ondansetron ODT 4 MG TAB.RAPDIS TRANSLINGU (01:11)
[2023-04-03 01:38] VITALS: BP 186/78; PULSE 79; RESP 16; TEMP 36.8; O2SAT 98
== END 2023-04-03 01:57 | disposition home or self-care (01) ==
PROVIDERS: Emergency Provider Emergency Medicine
DX: S00.91XA Abrasion of unspecified part of head, initial encounter (principal); S00.83XA Contusion of other part of head, initial encounter; R03.0 Elevated blood-pressure reading, without diagnosis of hypertension; R51.9 Headache, unspecified; M54.2 Cervicalgia; W01.10XA Fall on same level from slipping, tripping and stumbling with subsequent striking against unspecified object, initial encounter; Y93.9 Activity, unspecified; Y92.9 Unspecified place or not applicable; Y99.9 Unspecified external cause status; Z79.899 Other long term (current) drug therapy
CPT/HCPCS: 70450; 99283

== ENCOUNTER 2023-09-16 09:15 | Outpatient (AMB) | payer MEDICARE, OTHER, SELFPAY ==
--- NOTE | 2023-09-16 09:20 | A.OFFVIS_ITS ---
Intake Vital Signs 09/16/23 09:23 Height 5 ft 2 in Weight 150 lb BMI 27.4 BP 187/86 H Blood Pressure Location Lt brachial Position Sitting Pulse 68 Intake Visit Reasons: 6 month fu Intake Note: Patient 6 month follow up GERD. Patient cc: Change of BM, denies any other GI issues. Soil Technologist Required: No Accompanied by: Self / Same As Patient Allergies silver sulfadiazine [From SILVADENE] Allergy (Mild, Verified 09/16/23 09:20) RASH Sulfa (Sulfonamide Antibiotics) Allergy (Mild, Verified 09/16/23 09:20) mild HPI 6 month fu HPI Details LAST VISIT 03/16/2023 HPI Patient is here today for follow-up. Patient reports that she has been doing well. Takes pantoprazole every morning and denies any acid reflux, dyspepsia, dysphagia or odynophagia. Patient states that when she eats larger meals on social gatherings she will have occasional acid reflux and dyspepsia, however she tries to avoid eating large meals. Patient denies any nausea or vomiting. Reports to be moving her bowels without any issues. Patient is feeling well otherwise. Going for treatments with chiropractor and has been starting to feel better. Reports to have normal range of motion in her shoulder and her lower extremities. Patient denies melena, hematochezia, unintentional weight loss or ribbon like stools. Patient is due to go for colonoscopy in 2025 ASSESSMENT AND PLAN Gastroesophageal reflux disease Continue pantoprazole, continue avoiding dietary triggers in late night snacking. Staying upright for minimal 3 hours after meals discussed with patient. I will see patient in 6 months, sooner on as needed basis. Patient is agreeable to this plan and verbalizes understanding of instructions. She was given the opportunity to ask questions all questions answered. ? TODAY'S VISIT Patient is here today for follow-up. Patient reports that she has been taking pantoprazole 40 mg every morning and her symptoms of acid reflux are suppressed. Patient states that she has been doing well. Trying to eat healthy. Patient denies dyspepsia, dysphagia or odynophagia. Patient denies melena, hematochezia, unintentional weight loss or ribbon like stools. Occasional loose stools then constipation depending on what she eats. Patient states that she takes fiber supplements occasionally if she does not have enough fiber with her meals. Patient reports that she had a fall back in March of last year where she was walking to the bathroom, tripped and fell forward hitting right side of her face. Patient had large hematoma on her forehead and her cheek. Patient went for physical therapy and sees chiropractor for her hip adjustment. Patient reports that her bilateral lower extremities are very swollen and that could be contributing to her falls. Patient denies presyncope or syncope denies any shortness of breath or chest pain [facility] Medical History (Updated 09/16/23 @ 09:50 by Azul Pizarro, [facility]) Diverticulosis Kidney tumor Gastroesophageal reflux disease Helicobacter pylori (H. pylori) Tubular adenoma Other and unspecified hyperlipidemia Essential hypertension Surgical History History of surgery on arm History of bunionectomy of right great toe Hx of blepharoplasty History of esophagogastroduodenoscopy (EGD) Hx of colonoscopy H/O bilateral hip replacements History of cardiac catheterization (~07/05/18) Family History Father Myocardial infarction Hypertension Mother Diabetes Sister CVA (cerebral vascular accident) S/P CABG x 4 Sister Myocardial infarction Social History Are you a primary home care nurse to a significant other at home: No (lives alone; recently 07/2022) Patient Tobacco Use Status: Never used Tobacco Advance Directives Date on File: 10/01/22 Review of Systems Const Denies weight gain and Denies weight loss ENT Reports no additional complaints, Denies dysphagia and Denies odynophagia Card Reports no additional complaints Resp Reports no additional complaints GI Denies abdominal pain, Denies belching, Denies melena, Denies bloating, Reports constipation, Denies dysphagia, Denies excessive flatus, Denies dyspepsia, Denies heartburn, Denies diarrhea, Reports loose stools, Denies nausea, Denies odynophagia and Denies vomiting Reports no additional complaints Musc Reports no additional complaints Neuro Reports no additional complaints Psych Reports no additional complaints Endo Reports no additional complaints Physical Exam Vital Signs: Last Vital Signs Pulse 68 09/16/23 09:23 BP 187/86 H 09/16/23 09:23 BMI result Body Mass Index 27.4 Const Other: Walking with cane General: healthy appearing and no acute distress Nutritional Appearance: well nourished Orientation/consciousness: patient oriented x3 Resp Effort & Inspection: normal respiratory effort, able to speak in complete sentences, no tracheal deviation and symmetric chest movement Auscultation: clear to auscultation bilaterally Cardio Jugular venous distension: no JVD Rate: regular rate Heart sounds: S1 normal heart sound present, S2 normal heart sound present, no gallops and no murmurs GI Inspection: Yes normal to inspection and No distended Palpation (GI): Soft to palpation, not firm, nontender and No hepatosplenomegaly present Auscultation: normal bowel sounds General: Yes no CVA tenderness Back/Spine/Pelvis Back: no CVA tenderness Skin General skin exam: elasticity normal, turgor normal and dry skin Neuro General: patient oriented x3 Extrem Other: Bilateral lower extremity edema Psych Appearance: grossly normal Mental Status: mental status grossly normal Assessment & Plan Assessment & Plan (1) Gastroesophageal reflux disease: Code(s): K21.9 - Gastro-esophageal reflux disease without esophagitis Qualifiers: Esophagitis presence: without esophagitis Qualified Code(s): K21.9 - Gastro-esophageal reflux disease without esophagitis (2) Bilateral lower extremity edema: Code(s): R60.0 - Localized edema (3) Diverticulosis: Code(s): K57.90 - Diverticulosis of intestine, part unspecified, without perforation or abscess without bleeding Plan Will decrease pantoprazole 20 mg daily. Patient will finish her current bottle of 40 and will switch to 20 mg. Patient will call the office if her symptoms will return. Continue avoiding dietary triggers late night snacking. Staying upright for minimum 3 hours after meals discussed with patient. Discussed with patient safety and fall precautions. Patient is using cane when walking. Referral to vascular surgeon for bilateral lower extremity edema. Discussed with patient high-fiber diet. List of food high in fiber given to patient. I will see her in 3 months, sooner on as needed basis. Patient is agreeable to this plan and verbalizes understanding of instructions. She was given the opportunity to ask questions and all questions answered. Thank you for allowing me to participate in her care Orders: Referrals Vascular Surgery Referral R60.0 - Localized edema Medications: New pantoprazole 20 mg PO DAILY 90 tabs 1RF Coding Level of Care Code Est Pt Level 3 (77740) Diagnoses Gastroesophageal reflux disease without esophagitis K21.9 Esophagitis presence: without esophagitis Bilateral lower extremity edema R60.0 Diverticulosis K57.90 Time Spent (min) 30 Comment 20 minutes spent with patient and additional 10 minutes spent reviewing her records
[2023-09-16 09:23] VITALS: BP 187/86; PULSE 68; BMI 27.4
== END 2023-09-16 09:52 | disposition home or self-care (01) ==
PROVIDERS: Visit Provider Nurse Practitioner Family
DX: K21.9 Gastro-esophageal reflux disease without esophagitis (principal); R60.0 Localized edema; K57.90 Diverticulosis of intestine, part unspecified, without perforation or abscess without bleeding
CPT/HCPCS: 99213

== ENCOUNTER → 2023-09-16 09:15 | Outpatient (BNVA) | payer MEDICARE, OTHER, SELFPAY | PROVIDERS: Visit Provider Nurse Practitioner Family | DX: K21.9 Gastro-esophageal reflux disease without esophagitis (principal); K57.90 Diverticulosis of intestine, part unspecified, without perforation or abscess without bleeding; R60.0 Localized edema | CPT/HCPCS: 99212 ==

== ENCOUNTER 2023-11-03 09:23 | Outpatient (AMB) | payer MEDICARE, OTHER, SELFPAY ==
[2023-11-03 09:26] VITALS: BMI 27.4
--- NOTE | 2023-11-03 09:26 | A.OFFVIS_ITS ---
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 Pt states that she had a fall last March 2023, she had a concussion and was taking it easy, states thats when her pain and swelling started then. States she gets bilateral calf pain when rising or sitting down. not when ambulationg or at rest. And not all the time. Does have some LE swelling. Accompanied by: Self / Same As Patient Allergies silver sulfadiazine [From SILVADENE] Allergy (Mild, Verified 11/03/23 09:33) RASH Sulfa (Sulfonamide Antibiotics) Allergy (Mild, Verified 11/03/23 09:33) mild HPI ADMISSIONS EVALUATOR Low Extremity Swelling HPI Details Complex 73-year-old female patient presents for painful varicose veins. Complaints include pain over varicosities, swelling of lower extremities, cramping, fatigue, and heaviness of the lower extremities. It has been affecting there daily activities including walking. It is noted more so in right leg. In addition she has bilateral hip and lower extremity pain. Patient denies any previous venous surgery or injections. Patient denies any history of DVT/ PE. Patient denies any history of phlebitis. Trial of compression includes - [id number] They now present for vascular evaluation regarding their varicose veins. [facility] Medical History Diverticulosis Kidney tumor Gastroesophageal reflux disease Helicobacter pylori (H. pylori) Tubular adenoma Other and unspecified hyperlipidemia Essential hypertension Surgical History History of surgery on arm History of bunionectomy of right great toe Hx of blepharoplasty History of esophagogastroduodenoscopy (EGD) Hx of colonoscopy H/O bilateral hip replacements History of cardiac catheterization (~07/05/18) Family History Father Myocardial infarction Hypertension Mother Diabetes Sister CVA (cerebral vascular accident) S/P CABG x 4 Sister Myocardial infarction Social History Are you a primary primary care provider to a significant other at home: No (lives alone; recently 07/2022) Patient Tobacco Use Status: Never used Tobacco Advance Directives Date on File: 10/01/22 Review of Systems Const Reports as per HPI ENT Reports no additional complaints Card Denies chest pain, Denies chest pain at rest and Denies chest pain with activity Resp Denies chest congestion and Denies cough GI Reports no additional complaints Musc Details: pain over varicosities, aching of lower extremities, swelling, cramping, heaviness and tiredness, itching Denies abnormal gait Skin/Breast Reports pruritus and Denies wounds Neuro Reports no additional complaints and Denies abnormal gait Psych Denies no additional complaints Physical Exam Vital Signs: BMI result Body Mass Index 27.4 Const General: cooperative, healthy appearing and comfortable Orientation/consciousness: oriented to person, oriented to place and oriented to time Neck Carotids: no bruits Chest Chest palpation & inspection: normal inspection of the chest and normal palpation of entire chest wall Resp Effort & Inspection: normal respiratory effort and able to speak in complete sentences Cardio Rate: regular rate Heart sounds: S1 normal heart sound present and S2 normal heart sound present Peripheral pulses: Peripheral pulses 2+ throughout GI Inspection: Yes normal to inspection Skin Other: +2 edema, large rope-like varicosities greater than 4 mm CEAP Classification C4 - skin color changes Ep - Etiology Primary As - superficial veins P - reflux General skin exam: dry skin Neuro General: oriented to person, oriented to place and oriented to time Extrem Right lower extremity: full ROM, normal capillary refill and edema Left lower extremity: full ROM, normal capillary refill and edema Psych Mental Status: mental status grossly normal Assessment & Plan Assessment & Plan (1) Varicose veins of right lower extremity with inflammation: Code(s): I83.11 - Varicose veins of right lower extremity with inflammation Plan: In short, the patient has evidence of venous insufficiency. I have discussed the pathophysiology with the patient. In addition I have provided informational material regarding venous disease to the patient. We have discussed conservative measures including compression, elevation, and exercise. I have also provided a handout regarding appropriate use of compression stockings and where to purchase good compression stockings as well. I have taken the liberty of ordering venous insufficiency testing with the patient. They will follow up with me after testing. The patient had an opportunity to ask questions regarding the treatment plan. All questions were answered. Imaging studies, laboratory studies and physical exam results were discussed and reviewed in detail. No major barriers to understanding were identified. The patient expressed understanding and agreement with the above treatment plan. The patient is aware they should contact our office by phone for worsening of the current condition or the appearance of new symptoms. Thank you for allowing me to participate in the vascular care of this patient. If you have any questions or concerns regarding the treatment for the above condition please do not hesitate to contact me. The office telephone contact is [phone]. This note is constructed using voice recognition software. While every effort has been made to ensure accuracy, hunter skin diver errors may have been included. Thank you for allowing me to participate in the care of your patient. Yours sincerely, Kulwant Canas MD, FACS, R.P.V.I. Orders: Orders US venous insuf bilat 1 Week I83.11 - Varicose veins of right lower extremity with inflammation Coding Level of Care Code New Pt Level 4 (85638) Diagnoses Varicose veins of right lower extremity with inflammation I83.11
== END 2023-11-03 09:59 | disposition home or self-care (01) ==
PROVIDERS: Visit Provider Surgery Vascular Surgery
DX: I83.11 Varicose veins of right lower extremity with inflammation (principal)
CPT/HCPCS: 99203

== ENCOUNTER → 2023-11-03 09:23 | Outpatient (BNVA) | payer MEDICARE, OTHER, SELFPAY | PROVIDERS: Visit Provider Surgery Vascular Surgery | DX: I83.11 Varicose veins of right lower extremity with inflammation (principal) | CPT/HCPCS: 99202 ==

== ENCOUNTER 2023-11-14 10:17 | Outpatient (REF) | payer MEDICARE, OTHER, SELFPAY ==
--- NOTE | ~2023-11-14 | US_ITS ---
EXAMINATION: US LOWER EXTREMITY VENOUS (REFLUX EXAM), BILATERAL CLINICAL INFORMATION: Varicose veins right lower extremity COMPARISON: None. TECHNIQUE: Color flow triplex imaging and compression Doppler was performed to evaluate both the deep and the superficial systems bilaterally. To evaluate the superficial system, the examination was performed in the upright position. Color-flow Doppler ultrasound and compression ultrasound were utilized. In addition, maneuvers were utilized to demonstrate reflux. FINDINGS: 1. DEEP VENOUS ULTRASOUND OF THE RIGHT LOWER EXTREMITY: Common Femoral Vein: Compressible, normal respiratory variation and augmented flow. Femoral Vein: Compressible, normal color flow and augmentation. Popliteal Vein: Compressible, normal augmentation. Deep Reflux: There is no evidence of reflux in the deep system in either the common femoral vein, superficial femoral or the popliteal vein. There is no evidence of a Figueredo's cyst. 2. SUPERFICIAL ULTRASOUND WITH DOPPLER OF RIGHT LOWER EXTREMITY: GREAT SAPHENOUS VEIN: Saphenofemoral Junction: 0.5 cm; Reflux: 0 ms Proximal Thigh: 0.3 cm; Reflux: 0 ms Mid Thigh: 0.3 cm; Reflux: 0 ms Distal Thigh: 0.2 cm; Reflux: 0 ms At Knee: 0.3 cm; Reflux: 0 ms Proximal Calf: 0.3 cm; Reflux: 0 ms Mid Calf: 0.2 cm; Reflux: 0 ms Distal Calf: 0.2 cm; Reflux: 0 ms DUPLICATED MEDIAL GREAT SAPHENOUS VEIN: Diameter: 0.3 cm Reflux: NA DUPLICATED LATERAL GREAT SAPHENOUS VEIN: Diameter: None imaged Reflux: NA SMALL SAPHENOUS VEIN: Saphenopopliteal Junction: 0.2 cm; Reflux: 0 ms Proximal: 0.2 cm; Reflux: 0 ms Distal: 0.2 cm; Reflux: 0 ms VEIN OF GIACOMINI: Size: NA Reflux: NA PERFORATORS: Location: None imaged Size: NA Reflux: NA VARICOSITIES: Location: None imaged. Size: NA Reflux: NA 3. DEEP VENOUS ULTRASOUND OF THE LEFT LOWER EXTREMITY: Common Femoral Vein: Compressible, normal respiratory variation and augmented flow. Femoral Vein: Compressible, normal color flow and augmentation. Popliteal Vein: Compressible, normal augmentation. Deep Reflux: There is no evidence of reflux in the deep system in either the common femoral vein, superficial femoral or the popliteal vein. There is no evidence of a Figueredo's cyst. 4. SUPERFICIAL ULTRASOUND WITH DOPPLER OF LEFT LOWER EXTREMITY: GREAT SAPHENOUS VEIN: Saphenofemoral Junction: 0.5 cm; Reflux: 0 ms Proximal Thigh: 0.5 cm; Reflux: 0 ms Mid Thigh: 0.3 cm; Reflux: 0 ms Distal Thigh: 0.2 cm; Reflux: 0 ms At Knee: 0.2 cm; Reflux: 0 ms Proximal Calf: 0.2 cm; Reflux: 0 ms Mid Calf: 0.1 cm; Reflux: 0 ms Distal Calf: 0.3 cm; Reflux: 0 ms DUPLICATED MEDIAL GREAT SAPHENOUS VEIN: Diameter: 0.3 cm Reflux: NA DUPLICATED LATERAL GREAT SAPHENOUS VEIN: Diameter: None imaged. Reflux: NA SMALL SAPHENOUS VEIN: Saphenopopliteal Junction: 0.3 cm; Reflux: 0 ms Proximal: 0.2 cm; Reflux: 0 ms Distal: 0.1 cm; Reflux: 0 ms VEIN OF GIACOMINI: Size: NA Reflux: NA PERFORATORS: Location: None imaged Size: NA Reflux: NA VARICOSITIES: Location: None Imaged Size: NA Reflux: NA US/US venous insuf bilat IMPRESSION: Right: 1. No abnormal superficial venous reflux or varicose veins. 2. Figueredo's cyst. Left: 1. No abnormal superficial venous reflux or varicose veins. 2. Figueredo's cyst.
== END 2023-11-14 10:18 | disposition home or self-care (01) ==
LOC: HO.US 10:17
PROVIDERS: PCP Internal Medicine; Visit Provider Surgery Vascular Surgery
DX: I83.11 Varicose veins of right lower extremity with inflammation (principal)
CPT/HCPCS: 93970

== ENCOUNTER 2023-11-29 12:51 | Outpatient (AMB) | payer MEDICARE, OTHER, SELFPAY ==
[2023-11-29 13:02] VITALS: BMI 27.4
--- NOTE | 2023-11-29 13:02 | A.OFFVIS_ITS ---
Intake Vital Signs 11/29/23 13:02 Height 5 ft 2 in Weight 150 lb BMI 27.4 Intake Visit Reasons: F/U US 11/14/23 Intake Note: Patient presents for follow up 11/13 . Patient states she's been having left calf pain for the last few days Both legs have pain but mostly the left. Says she needs to hold onto something in order to stand up but once she is up she feels fine. Accompanied by: Self / Same As Patient Allergies silver sulfadiazine [From SILVADENE] Allergy (Mild, Verified 11/29/23 13:06) RASH Sulfa (Sulfonamide Antibiotics) Allergy (Mild, Verified 11/29/23 13:06) mild HPI F/U US 11/14/23 HPI Details Very complex 73-year-old female presents for follow-up regarding lower extremity pain. She has a very complex history regarding lower extremity pain and discomfort. She is actually seen orthopedics in the past and had recommended a right knee replacement which she has held off on. At 1 point she was also told that she had a differential in her height between her to extremities. She reports that it is doing better with her chiropractor. She still has pain that is why she seeing me. She now presents to us for follow-up with venous insufficiency testing. She does not have that much swelling at the current time. [facility] Medical History Diverticulosis Kidney tumor Gastroesophageal reflux disease Helicobacter pylori (H. pylori) Tubular adenoma Other and unspecified hyperlipidemia Essential hypertension Surgical History History of surgery on arm History of bunionectomy of right great toe Hx of blepharoplasty History of esophagogastroduodenoscopy (EGD) Hx of colonoscopy H/O bilateral hip replacements History of cardiac catheterization (~07/05/18) Family History Father Myocardial infarction Hypertension Mother Diabetes Sister CVA (cerebral vascular accident) S/P CABG x 4 Sister Myocardial infarction Social History Are you a primary post acute care nurse practitioner to a significant other at home: No (lives alone; recently 07/2022) Patient Tobacco Use Status: Never used Tobacco Advance Directives Date on File: 10/01/22 Review of Systems Const All systems reviewed & are unremarkable except as noted in HPI and below Reports no additional complaints ENT Reports Normal hearing present Card Denies chest pain, Denies chest pain at rest, Denies chest pain with activity and Denies pedal edema Resp Denies cough GI Denies abdominal pain Musc Denies abnormal gait, Denies muscle cramps and Denies radiating pain into limb Skin/Breast Denies skin ulcer and Denies wounds Neuro Reports Normal hearing present and Denies abnormal gait Psych Reports no additional complaints Physical Exam Vital Signs: BMI result Body Mass Index 27.4 Const General: cooperative, healthy appearing and comfortable Orientation/consciousness: oriented to person, oriented to place and oriented to time HEENT Head: Yes normal to inspection Neck Neck: Yes normal visual inspection Carotids: no bruits Chest Chest palpation & inspection: normal inspection of the chest Resp Effort & Inspection: normal respiratory effort and able to speak in complete sentences Auscultation: clear to auscultation bilaterally, no crackles, no rales, no rhonchi and no wheezes Cardio Rate: regular rate Rhythm: regular rhythm Heart sounds: S1 normal heart sound present and S2 normal heart sound present Bruits: no carotid bruits Peripheral pulses: Peripheral pulses 2+ throughout GI Inspection: Yes normal to inspection Skin Wounds: no wounds Hair: normal Neuro General: oriented to person, oriented to place and oriented to time Cranial nerves: Yes CN's II-XII intact bilaterally and Yes Normal hearing present Cognition (Neuro): normal cognition Motor exam (neuro): 5/5 motor strength present throughout Extrem Other: venous exam: No significant superficial varicosities or spider telangiectasias, minimal edema General: No clubbing, No cyanosis and No edema Psych Appearance: grossly normal Mental Status: mental status grossly normal Speech and movement: Normal speech and movement present Results Reviewed Results Reviewed: Brief summary of venous insufficiency testing is as follows: right great saphenous vein: negative right small saphenous vein: negative right accessory vein: none present left great saphenous vein: negative left small saphenous vein: negative left accessory vein: none present Please note there is no evidence of any venous aneurysms or significant tortuosity Assessment & Plan Assessment & Plan (1) Leg pain: Code(s): M79.606 - Pain in leg, unspecified Qualifiers: Laterality: bilateral Qualified Code(s): M79.604 - Pain in right leg; M79.605 - Pain in left leg Plan: In short patient has leg pain. It does not appear to be vascular in nature as she does have palpable arterial pulses in venous insufficiency testing has shown to be negative. She does have a known history of musculoskeletal issues in actually did have recommendations by Orthopedics in the past. I did discuss this with her and she may benefit from a repeat follow-up by Orthopedics. Should pain and discomfort persist she will require orthopedic evaluation. I had an extensive discussion with her and spent a fair amount of time explaining this to her. She will follow up with us on an as-needed basis. Thank you for allowing us to assist in her care. If there are any questions or concerns please do not hesitate to contact us. Coding Level of Care Code Est Pt Level 4 (79514) Diagnoses Pain in both lower extremities M79.604; M79.605 Laterality: bilateral
== END 2023-11-29 13:34 | disposition home or self-care (01) ==
PROVIDERS: PCP Internal Medicine; Visit Provider Surgery Vascular Surgery
DX: M79.604 Pain in right leg (principal); M79.605 Pain in left leg
CPT/HCPCS: 99213

== ENCOUNTER → 2023-11-29 12:51 | Outpatient (BNVA) | payer MEDICARE, OTHER, SELFPAY | PROVIDERS: PCP Internal Medicine; Visit Provider Surgery Vascular Surgery | DX: M79.604 Pain in right leg (principal); M79.605 Pain in left leg | CPT/HCPCS: 99212 ==

== ENCOUNTER 2023-12-16 10:15 | Outpatient (AMB) | payer MEDICARE, OTHER, SELFPAY ==
[2023-12-16 10:20] VITALS: BP 176/82; PULSE 67; BMI 28.0
--- NOTE | 2023-12-16 10:20 | MHC.OFFVIS ---
Vital Signs 12/16/23 10:20 Height 5 ft 2 in Weight 153 lb BMI 28.0 BP 176/82 H Blood Pressure Location Rt brachial Position Sitting Pulse 67 Intake Visit Reasons: 3 month follow up Intake Note: Pt presents today for 3mo follow up. Taking pantoprazole 20mg states it was good adjustment and every once in a while she takes a rolaid. 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 Patient will finish her current bottle of 40 and will switch to 20 mg. Patient will call the office if her symptoms will return. Continue avoiding dietary triggers late night snacking. Staying upright for minimum 3 hours after meals discussed with patient. Discussed with patient safety and fall precautions. Patient is using cane when walking. Referral to vascular surgeon for bilateral lower extremity edema. Discussed with patient high-fiber diet. List of food high in fiber given to patient. I will see her in 3 months, sooner on as needed basis. Patient is agreeable to this plan and verbalizes understanding of instructions. She was given the opportunity to ask questions and all questions answered. ? Thank you for allowing me to participate in her care Orders Referrals Vascular Surgery Referral R60.0 Medications New pantoprazole 20 mg PO DAILY 90 tabs 1RF TODAY'S VISIT: Patient is here today for follow-up. Patient reports that she has been feeling well since last visit. She has been taking pantoprazole 20 mg daily and she states that her symptoms are suppressed. Occasionally depending on what she eats she might have acid reflux postprandially and takes Rolaids on as needed basis. Patient denies any dyspepsia, dysphagia or odynophagia. Denies any GI concerning symptoms. Reports that she has been moving her bowels well. [facility]LY [facility], [facility] Medical History Diverticulosis Kidney tumor Gastroesophageal reflux disease Helicobacter pylori (H. pylori) Tubular adenoma Other and unspecified hyperlipidemia Essential hypertension Surgical History History of surgery on arm History of bunionectomy of right great toe Hx of blepharoplasty History of esophagogastroduodenoscopy (EGD) Hx of colonoscopy H/O bilateral hip replacements History of cardiac catheterization (~07/05/18) Family History Father Myocardial infarction Hypertension Mother Diabetes Sister CVA (cerebral vascular accident) S/P CABG x 4 Sister Myocardial infarction Social History Are you a primary pediatric care coordinator to a significant other at home: No (lives alone; recently 07/2022) Patient Tobacco Use Status: Never used Tobacco Advance Directives Date on File: 10/01/22 Review of Systems Const Denies weight gain and Denies weight loss ENT Reports no additional complaints, Denies dysphagia and Denies odynophagia Card Reports no additional complaints Resp Reports no additional complaints GI Denies abdominal pain, Denies belching, Denies melena, Denies bloating, Denies change in bowel habits, Denies dysphagia, Denies excessive flatus, Denies dyspepsia, Reports heartburn (occasional), Denies diarrhea, Denies loose stools, Denies nausea, Denies odynophagia and Denies vomiting Reports no additional complaints Musc Reports no additional complaints Neuro Reports no additional complaints Psych Reports no additional complaints Endo Reports no additional complaints Physical Exam Vital Signs: Last Vital Signs Pulse 67 12/16/23 10:20 BP 176/82 H 12/16/23 10:20 BMI result Body Mass Index 28.0 Const Other: Walking with cane General: healthy appearing, no acute distress and well developed Nutritional Appearance: well nourished Orientation/consciousness: patient oriented x3 HEENT Head: Yes normal to inspection, Yes normocephalic and Yes atraumatic Face and sinus: Yes normal facial exam Mouth: Normal oral and palatal mucosa present Throat: Yes posterior oropharynx normal, Yes tonsils normal and Yes uvula midline Eyes General: appearance normal, both eyes and all related structures Neck Neck: Yes normal visual inspection, Yes full ROM and Yes trachea midline Thyroid: Thyroid normal Resp Effort & Inspection: normal respiratory effort, able to speak in complete sentences, no tracheal deviation and symmetric chest movement Auscultation: clear to auscultation bilaterally Cardio Rate: regular rate GI Inspection: Yes normal to inspection and No distended Palpation (GI): Soft to palpation, not firm, nontender and No hepatosplenomegaly present Auscultation: normal bowel sounds General: Yes no CVA tenderness Back/Spine/Pelvis Back: no CVA tenderness Skin General skin exam: elasticity normal, turgor normal and dry skin Neuro General: patient oriented x3 Extrem Other: Bilateral lower extremity edema Psych Appearance: grossly normal Mental Status: mental status grossly normal Speech and movement: Normal speech and movement present Affect: normal affect Attitude: cooperative Thought process: Normal thought process present Thought content: Normal thought content present Insight: Good insight present (Psych) Judgement: Good judgement present (Psych) Assessment & Plan Assessment & Plan (1) Gastroesophageal reflux disease: Code(s): K21.9 - Gastro-esophageal reflux disease without esophagitis Category: Medical Qualifiers: Esophagitis presence: without esophagitis Qualified Code(s): K21.9 - Gastro-esophageal reflux disease without esophagitis (2) Diverticulosis: Code(s): K57.90 - Diverticulosis of intestine, part unspecified, without perforation or abscess without bleeding Category: Medical (3) Bilateral lower extremity edema: Code(s): R60.0 - Localized edema Plan Continue current dose of pantoprazole. Patient would like to check her magnesium checked due to her bilateral lower extremity discomfort. Will also check vitamin-D, B12 and folate. Patient was encouraged to continue avoiding dietary triggers and late night snacking. Staying upright for minimum 3 hours after meals discussed with patient. I will see her in 6 months, sooner on as needed basis. Patient is agreeable to this plan and verbalizes understanding of instructions. She was given the opportunity to ask questions and all questions answered. Thank you for allowing me to participate in her care Orders: Orders Vitamin B12 and Folate 12/16/23 R19.7 - Diarrhea, unspecified Vitamin D 25-OH (D2 and D3) 12/16/23 E55.9 - Vitamin D deficiency, unspecified Magnesium 12/16/23 M79.18 - Myalgia, other site Medications: Refilled pantoprazole 20 mg PO DAILY 90 tabs 1RF Coding Level of Care Code Est Pt Level 3 (91050) Diagnoses Gastroesophageal reflux disease without esophagitis K21.9 Esophagitis presence: without esophagitis Diverticulosis K57.90 Bilateral lower extremity edema R60.0 Time Spent (min) 30 Comment 20 minutes spent with patient and additional 10 minutes spent reviewing her records
== END 2023-12-16 10:57 | disposition home or self-care (01) ==
PROVIDERS: Visit Provider Nurse Practitioner Family
DX: K21.9 Gastro-esophageal reflux disease without esophagitis (principal); K57.90 Diverticulosis of intestine, part unspecified, without perforation or abscess without bleeding; R60.0 Localized edema
CPT/HCPCS: 99213

== ENCOUNTER 2023-12-16 10:15 | Outpatient (REF) | payer MEDICARE, OTHER, SELFPAY ==
[2023-12-16 13:04] LABS: Folate 10.3 ng/mL (> or = 4.0); Vitamin B12 1200 pg/mL (200-900)
[2023-12-16 13:05] LABS: Magnesium 2.2 mg/dL (1.6-2.6)
[2023-12-20 16:17] LABS: Vitamin D 25-OH, D2 <4 ng/mL; Vitamin D 25-OH, D3 30 ng/mL; Vitamin D 25-OH, Total 30 ng/mL (30-100)
== END 2023-12-16 10:16 | disposition home or self-care (01) ==
LOC: HO.LAB 10:15
PROVIDERS: PCP Internal Medicine; Visit Provider Nurse Practitioner Family
DX: R19.7 Diarrhea, unspecified (principal); M79.18 Myalgia, other site; K21.9 Gastro-esophageal reflux disease without esophagitis
CPT/HCPCS: 36415; 82306; 82607; 82746; 83735; 99212

== ENCOUNTER 2023-12-21 12:54 | Outpatient (AMB) | payer MEDICARE, OTHER, SELFPAY ==
--- NOTE | 2023-12-21 13:12 | MHC.OFFVIS ---
Intake Visit Reasons: follow up CT results Intake Note: Patient is Present for Follow Up ct Urology Medication: None Antibiotic Allergies: sulfa Blood Thinners: None Allergies silver sulfadiazine [From SILVADENE] Allergy (Mild, Verified 12/21/23 21:11) RASH Sulfa (Sulfonamide Antibiotics) Allergy (Mild, Verified 12/21/23 21:11) mild Medication List - Last Reconciled 12/21/23 by JUAN Yip ascorbic acid (vitamin C) (Vitamin C) 1,000 mg PO DAILY glucosamine sulfate (Glucosamine) 1,000 mg PO BID omega-3 fatty acids 500 mg PO DAILY pantoprazole 20 mg PO DAILY rosuvastatin 10 mg PO BEDTIME HPI Comments Details: Alexandra is a pleasant 73-year-old female patient of Dr. Moreira. She has a past medical history of diverticulosis, renal cell carcinoma, GERD, H pylori, and hypertension. She presents to the office today for follow-up of her renal cell carcinoma. Of note patient underwent right-sided cryoablation with Interventional Radiology and Dr. Tejada 06/06. In discussion with the patient today she reports to be doing and feeling well. She denies any bothersome urinary issues or concerns. She discusses continuing to adjust to her life with the loss of her in 08/05. Recent CT imaging results reviewed with the patient today. No suspicious lung nodules. Punctate nonobstructing left renal calyceal stones. Reported interval right renal cryoablation. Expected decrease in soft tissue attenuation at the interpolar kidney where there was previously an enhancing mass. No suspicious enhancement within limits of CT technique. No new renal mass. No hydronephrosis. No evidence of residual/recurrent disease. No finding suspicious for metastatic disease in the chest, abdomen, and or pelvis. Discussed continuation of surveillance monitoring. She denies urinary urgency, urinary frequency, incontinence, nocturia, hematuria, dysuria, foul smelling urine, changes to urinary stream, flank pain, fever, and or chills. She is happy with her current voiding parameters. She discusses following up with vascular surgery for her bilateral lower leg edema and calf pain she has been experiencing. In office urinalysis results reviewed with the patient today. She otherwise offers no other issues or concerns at this time. [facility] Medical History Diverticulosis Kidney tumor Gastroesophageal reflux disease Helicobacter pylori (H. pylori) Tubular adenoma Other and unspecified hyperlipidemia Essential hypertension Surgical History History of surgery on arm History of bunionectomy of right great toe Hx of blepharoplasty History of esophagogastroduodenoscopy (EGD) Hx of colonoscopy H/O bilateral hip replacements History of cardiac catheterization (~07/05/18) Family History Father Myocardial infarction Hypertension Mother Diabetes Sister CVA (cerebral vascular accident) S/P CABG x 4 Sister Myocardial infarction Social History Are you a primary manager medicare marketing to a significant other at home: No (lives alone; recently 07/2022) Patient Tobacco Use Status: Never used Tobacco Advance Directives Date on File: 10/01/22 Review of Systems Const Reports as per HPI Eyes Reports no additional complaints ENT Reports no additional complaints Card Reports as per HPI Resp Reports no additional complaints GI Reports as per HPI Reports as per HPI Musc Reports as per HPI Neuro Reports no additional complaints Psych Reports as per HPI Endo Reports no additional complaints Physical Exam Const General: cooperative, healthy appearing, comfortable, no acute distress, well developed, alert and awake Orientation/consciousness: patient oriented x3 Limitations: ambulation with cane HEENT Head: Yes normal to inspection, Yes normocephalic and Yes atraumatic Ears: hearing grossly normal bilaterally Eyes General: appearance normal, both eyes and all related structures Neck Neck: Yes normal visual inspection and Yes trachea midline Chest Chest palpation & inspection: normal inspection of the chest Resp Effort & Inspection: normal respiratory effort and able to speak in complete sentences Cardio Rate: regular rate GI Inspection: Yes normal to inspection General: Yes no CVA tenderness Back/Spine/Pelvis Back: no CVA tenderness Skin General skin exam: no rashes or lesions noted Neuro General: patient oriented x3 Extrem General: Yes normal to inspection Psych Appearance: grossly normal and well kempt Mental Status: mental status grossly normal Speech and movement: Normal speech and movement present and Clear speech present Affect: normal affect Attitude: cooperative Thought process: Normal thought process present Thought content: Normal thought content present Insight: Fair insight present (Psych) Judgement: Fair judgement present (Psych) Results AMB Urinalysis, Automated UA Leukoctes 0 Estelita/uL Last Edit by Fiordaliza Mcguire COUNTS INCLUDE 234 BEDS AT THE [facility] on 12/21/23 13:28 UA Nitrite Negative Last Edit by Fiordaliza Mcguire, A on 12/21/23 13:28 UA Urobilinogen 0.2 mg/dL Last Edit by Fiordaliza Mcguire A on 12/21/23 13:28 UA Protein 0 mg/dL Last Edit by Fiordaliza Mcguire A on 12/21/23 13:28 UA pH 6.0 Last Edit by Fiordaliza Mcguire A on 12/21/23 13:28 UA Blood 80 Jean Paul/uL Last Edit by Fiordaliza Mcguire COUNTS INCLUDE 234 BEDS AT THE [facility] on 12/21/23 13:28 UA Specific [place] 1.010 Last Edit by Fiordaliza Mcguire A on 12/21/23 13:28 UA Ketone Negative Last Edit by Fiordaliza Mcguire COUNTS INCLUDE 234 BEDS AT THE [facility] on 12/21/23 13:28 UA Bilirubin 0 mg/dL Last Edit by Fiordaliza Mcguire A on 12/21/23 13:28 UA Glucose 0 mg/dL Last Edit by Fiordaliza Mcguire COUNTS INCLUDE 234 BEDS AT THE [facility] on 12/21/23 13:28 Results Reviewed Results Reviewed: Laboratory Last Values Urine pH (Auto) 6.0 12/21/23 13:17 Specific [place] (Auto) 1.010 12/21/23 13:17 Urine Protein (Auto) 0 mg/dL 12/21/23 13:17 Glucose (UA)(Auto) 0 mg/dL 12/21/23 13:17 Urine Ketones (Auto) Negative 12/21/23 13:17 Urine Blood (Auto) 80 Jean Paul/uL 12/21/23 13:17 Urine Nitrite (Auto) Negative 12/21/23 13:17 Urine Bilirubin (Auto) 0 mg/dL 12/21/23 13:17 Urine Urobilinogen (Auto) 0.2 mg/dL 12/21/23 13:17 Leukocyte Esterase (Auto) 0 Estelita/uL 12/21/23 13:17 Assessment & Plan Assessment & Plan (1) Renal cell carcinoma: Code(s): C64.9 - Malignant neoplasm of unspecified kidney, except renal pelvis Category: Medical (2) Renal neoplasm: Code(s): D49.519 - Neoplasm of unspecified behavior of unspecified kidney Category: Medical (3) Renal mass: Code(s): N28.89 - Other specified disorders of kidney and ureter Category: Medical Plan In office urinalysis results reviewed with the patient today; as noted above. Recent CT results reviewed with the patient today; as noted above. Patient currently denies any bothersome urinary issues or concerns. She reports be happy with current voiding parameters. Discussed continuation of surveillance monitoring. Will obtain renal ultrasound and chest x-ray in 6 months. Follow-up in 6 months with imaging to be completed prior; or sooner with any issues, concerns, and or questions. Orders: Orders AMB Urinalysis Automated Today Z13.9 - Encounter for screening, unspecified US renal BI 6 Months C64.9 - Malignant neoplasm of unspecified kidney, except renal pelvis, D49.519 - Neoplasm of unspecified behavior of unspecified kidney, N28.89 - Other specified disorders of kidney and ureter XR chest 2V 6 Months C64.9 - Malignant neoplasm of unspecified kidney, except renal pelvis, D49.519 - Neoplasm of unspecified behavior of unspecified kidney, N28.89 - Other specified disorders of kidney and ureter Patient Instructions: The patient had an opportunity to ask questions regarding the treatment plan. All questions were answered. Physical exam, labs, and imaging were discussed and reviewed in detail. As well as risks, benefits, and discussion of treatment choices. No major barriers to understanding were identified. The patient expressed understanding and agreement with the above treatment plan. The patient was made aware they should contact our office by phone for worsening of their current condition, the appearance of new symptoms, or with any questions or concerns. Compliance is encouraged with any medications and follow up testing that is ordered. It is a privilege to be allowed the opportunity to participate in? your urological care.? Again, if you have any questions or concerns If you have any questions or concerns please do not hesitate to contact me. The office is [phone]. This note is constructed using voice recognition software. While every effort has been made to ensure accuracy scrap yard worker errors may have been included. Yours sincerely, JUAN Yip Coding Level of Care Code Est Pt Level 4 (06718) Diagnoses Renal cell carcinoma C64.9 Renal neoplasm D49.519 Renal mass N28.89 Time Spent (min) 35
== END 2023-12-21 14:13 | disposition home or self-care (01) ==
PROVIDERS: PCP Internal Medicine; Visit Provider Nurse Practitioner Family
DX: C64.9 Malignant neoplasm of unspecified kidney, except renal pelvis (principal); D49.519 Neoplasm of unspecified behavior of unspecified kidney; N28.89 Other specified disorders of kidney and ureter; Z13.9 Encounter for screening, unspecified
CPT/HCPCS: 99214

== ENCOUNTER → 2023-12-21 12:54 | Outpatient (BNVA) | payer MEDICARE, OTHER, SELFPAY | PROVIDERS: PCP Internal Medicine; Visit Provider Nurse Practitioner Family | DX: C64.9 Malignant neoplasm of unspecified kidney, except renal pelvis (principal); D49.519 Neoplasm of unspecified behavior of unspecified kidney; N28.89 Other specified disorders of kidney and ureter | CPT/HCPCS: 81003; 99212 ==

== ENCOUNTER 2024-06-20 09:45 | Outpatient (REF) | payer MEDICARE, OTHER, SELFPAY ==
--- NOTE | ~2024-06-20 | XR_ITS ---
EXAMINATION: XR CHEST 2 VIEWS CLINICAL INFORMATION: Malignant neoplasm of unspecified kidney, except renal pelvis C64.9. COMPARISON: CT scan of the abdomen September 2022 TECHNIQUE: 2 views of the chest were obtained. FINDINGS: Minimal opacity in the left lower lung compatible scarring or discoid atelectasis. Lungs clear. Cardiomediastinal silhouette normal. Spondylosis throughout the dorsal spine. Chronic compression fracture of T12 unchanged. Suspect additional compression fracture T7 age-indeterminate There is an S-shaped curvature of the thoracolumbar spine. There is a convex left curvature measuring approximately 25 degrees between T11 and L1 XR/XR chest 2V IMPRESSION: 1. No acute disease. 2. Scoliosis. Age-indeterminate compression fractures of T7 vertebral body. Old compression fracture T12 unchanged. Electronically signed by: Juan Daniel Bass MD 07/26/2024 04:25 PM KEISHA
== END 2024-06-20 09:46 | disposition home or self-care (01) ==
LOC: HO.US 09:45
PROVIDERS: PCP Internal Medicine; Visit Provider Nurse Practitioner Family
DX: C64.9 Malignant neoplasm of unspecified kidney, except renal pelvis (principal); D49.519 Neoplasm of unspecified behavior of unspecified kidney; N28.89 Other specified disorders of kidney and ureter
CPT/HCPCS: 71046; 76775

== ENCOUNTER 2024-07-06 10:31 | Outpatient (AMB) | payer MEDICARE, OTHER, SELFPAY ==
[2024-07-06 10:34] VITALS: BP 132/80; PULSE 72; O2SAT 96; BMI 28.1
--- NOTE | 2024-07-06 10:34 | MHC.OFFVIS ---
Vital Signs 07/06/24 10:34 Height 5 ft 2 in Weight 153 lb 14.122 oz BMI 28.1 BP 132/80 Blood Pressure Location Lt brachial Position Sitting Pulse 72 Pulse Source Pulse Oximeter Pulse Oximetry (%) 96 Oxygen Delivery Method Room Air Intake Visit Reasons: 6 month f/u Intake Note: PRESCRIPTIONS LAST GENERATED pantoprazole 20 mg tablet,delayed release?20 mg PO DAILY 90 tabs 1RF Azul Pizarro Renea 12/16/23 10:53 (Transmitted) Pt needs a refill of pantoprazole. Pt is still taking this medication and doing well with it. Relevant Flags or Indicators ? Requires Rooming House Operator? London Morris presents in office today for a scheduled 6 mos FUV. CC; Pt had lab and med orders placed and fulfilled since last visit, no diagnostic orders placed. ?Pt reports that Urology also ordered a chest xray which was fulfilled recently as well. Pt has been having frequent UTIs which was the reason for the urology appt. Relevant GI Sx as reported per pt? None ? Hx of any recent surgeries? None Rooming House Operator Required: No Allergies silver sulfadiazine [From SILVADENE] Allergy (Mild, Verified 07/06/24 10:34) RASH Sulfa (Sulfonamide Antibiotics) Allergy (Mild, Verified 07/06/24 10:34) mild HPI HPI 6 month f/u: Details: LAST VISIT: Gastroesophageal reflux disease Diverticulosis Bilateral lower extremity edema Plan Continue current dose of pantoprazole. Patient would like to check her magnesium checked due to her bilateral lower extremity discomfort. Will also check vitamin-D, B12 and folate. Patient was encouraged to continue avoiding dietary triggers and late night snacking. Staying upright for minimum 3 hours after meals discussed with patient. I will see her in 6 months, sooner on as needed basis. Patient is agreeable to this plan and verbalizes understanding of instructions. She was given the opportunity to ask questions and all questions answered. ? Thank you for allowing me to participate in her care Orders Orders Vitamin B12 and Folate 12/16/23 R19.7 Vitamin D 25-OH (D2 and D3) 12/16/23 E55.9 Magnesium 12/16/23 M79.18 Medications Refilled pantoprazole 20 mg PO DAILY 90 tabs 1RF TODAY'S VISITS: Patient is here today for follow-up. Patient reports that she has been feeling fairly well. Takes pantoprazole every morning and her symptoms of acid reflux are suppressed. Patient has been having frequent UTIs. Currently is on Macrobid. She follows with Urology often. Patient is following up with chiropractor for exercises that she has been doing at home for her right hip and lower extremity. Patient denies any melena, hematochezia, unintentional weight loss or ribbon like stools. Denies any dyspepsia, dysphagia or odynophagia. Patient denies any GI concerning symptoms today. [facility] Medical History Diverticulosis Kidney tumor Gastroesophageal reflux disease Helicobacter pylori (H. pylori) Tubular adenoma Other and unspecified hyperlipidemia Essential hypertension Surgical History History of surgery on arm History of bunionectomy of right great toe Hx of blepharoplasty History of esophagogastroduodenoscopy (EGD) Hx of colonoscopy H/O bilateral hip replacements History of cardiac catheterization (~07/05/18) Family History Father Myocardial infarction Hypertension Mother Diabetes Sister CVA (cerebral vascular accident) S/P CABG x 4 Sister Myocardial infarction Social History Are you a primary senior care assistant to a significant other at home: No (lives alone; recently 07/2022) Patient Tobacco Use Status: Never used Tobacco Advance Directives Date on File: 10/01/22 Review of Systems Const Denies weight gain and Denies weight loss ENT Reports no additional complaints, Denies dysphagia and Denies odynophagia Card Reports no additional complaints Resp Reports no additional complaints GI Denies abdominal pain, Denies belching, Denies melena, Denies bloating, Denies change in bowel habits, Denies dysphagia, Denies excessive flatus, Denies dyspepsia, Reports heartburn (Occasionally with spicy food), Denies diarrhea, Denies loose stools, Denies nausea, Denies odynophagia and Denies vomiting Reports no additional complaints Musc Reports no additional complaints Neuro Reports no additional complaints Psych Reports no additional complaints Endo Reports no additional complaints Physical Exam Vital Signs: Last Vital Signs Pulse 72 07/06/24 10:34 BP 132/80 07/06/24 10:34 Pulse Ox 96 07/06/24 10:34 Oxygen Delivery Method Room Air 07/06/24 10:34 BMI result Body Mass Index 28.1 Const Other: Walking with cane General: healthy appearing, no acute distress and well developed Nutritional Appearance: well nourished Orientation/consciousness: patient oriented x3 Eyes General: appearance normal, both eyes and all related structures Neck Neck: Yes normal visual inspection, Yes full ROM and Yes trachea midline Thyroid: Thyroid normal Resp Effort & Inspection: normal respiratory effort, able to speak in complete sentences, no tracheal deviation and symmetric chest movement Auscultation: clear to auscultation bilaterally Cardio Rate: regular rate GI Inspection: Yes normal to inspection and No distended Palpation (GI): Soft to palpation, not firm, nontender and No hepatosplenomegaly present Auscultation: normal bowel sounds General: Yes no CVA tenderness Back/Spine/Pelvis Back: no CVA tenderness Skin General skin exam: elasticity normal, turgor normal and dry skin Neuro General: patient oriented x3 Extrem Other: Bilateral lower extremity edema Psych Appearance: grossly normal Mental Status: mental status grossly normal Speech and movement: Normal speech and movement present Affect: normal affect Attitude: cooperative Thought process: Normal thought process present Thought content: Normal thought content present Insight: Good insight present (Psych) Judgement: Good judgement present (Psych) Assessment & Plan Assessment & Plan (1) Gastroesophageal reflux disease: Code(s): K21.9 - Gastro-esophageal reflux disease without esophagitis Category: Medical Qualifiers: Esophagitis presence: without esophagitis Qualified Code(s): K21.9 - Gastro-esophageal reflux disease without esophagitis (2) Diverticulosis: Code(s): K57.90 - Diverticulosis of intestine, part unspecified, without perforation or abscess without bleeding Category: Medical Plan Patient will continue pantoprazole. Patient will avoid dietary triggers and late night snacking. Staying upright for minimum 3 hours after meals discussed with patient. Follow-up in 6 months, sooner on as needed basis. Patient will be due to go for colonoscopy in March of 2026. Patient is agreeable to this plan and verbalizes understanding of instructions. She was given the opportunity to ask questions and all questions answered. Thank you for allowing me to participate in her care Medications: Refilled pantoprazole 20 mg PO DAILY 90 tabs 3RF Coding Level of Care Code Est Pt Level 3 (58637) Diagnoses Gastroesophageal reflux disease without esophagitis K21.9 Esophagitis presence: without esophagitis Diverticulosis K57.90 Time Spent (min) 30 Comment 020 minutes spent with patient and additional 15 minutes spent reviewing her records
== END 2024-07-06 11:28 | disposition home or self-care (01) ==
PROVIDERS: Visit Provider Nurse Practitioner Family
DX: K21.9 Gastro-esophageal reflux disease without esophagitis (principal); K57.90 Diverticulosis of intestine, part unspecified, without perforation or abscess without bleeding
CPT/HCPCS: 99213

== ENCOUNTER → 2024-07-06 10:31 | Outpatient (BNVA) | payer OTHER, SELFPAY | PROVIDERS: Visit Provider Nurse Practitioner Family | DX: K21.9 Gastro-esophageal reflux disease without esophagitis (principal); K57.90 Diverticulosis of intestine, part unspecified, without perforation or abscess without bleeding; R60.0 Localized edema | CPT/HCPCS: 99212 ==

== ENCOUNTER 2024-08-07 08:41 | Outpatient (AMB) | payer MEDICARE, OTHER, SELFPAY ==
--- NOTE | 2024-08-07 08:50 | MHC.OFFVIS ---
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 Accompanied by: Self / Same As Patient Allergies silver sulfadiazine [From SILVADENE] Allergy (Mild, Verified 08/09/24 17:22) RASH Sulfa (Sulfonamide Antibiotics) Allergy (Mild, Verified 08/09/24 17:22) mild Medication List - Last Reconciled 08/09/24 by CROW Yip-CLEMENT ascorbic acid (vitamin C) (Vitamin C) 1,000 mg PO DAILY glucosamine sulfate (Glucosamine) 1,000 mg PO BID nitrofurantoin monohyd/m-cryst 100 mg (Macrobid) 100 mg PO BID omega-3 fatty acids 500 mg PO DAILY pantoprazole 20 mg PO DAILY rosuvastatin 10 mg PO BEDTIME HPI Comments Details: Alexandra is a pleasant 74-year-old female patient of Dr. Moreira. She has a past medical history of diverticulosis, renal cell carcinoma, GERD, H pylori, and hypertension. She presents to the office today for follow-up of her renal cell carcinoma. Of note patient underwent right-sided cryoablation with Interventional Radiology and Dr. Tejada 06/06. In discussion with the patient today she reports to be doing and feeling well. She denies any bothersome urinary issues or concerns. She discusses continuing to adjust to her life with the loss of her in 08/05. Recent renal ultrasound 07/08.... Chest x-ray 07/08 Minimal opacity in the left lower lung compatible scarring or discoid atelectasis, lungs clear, Cardiomediastinal silhouette normal. No acute disease. Scoliosis. Age indeterminate compression fracture of T7 vertebral body. Old compression fracture T12 unchanged. Discussed continuation of surveillance monitoring. She denies urinary urgency, urinary frequency, incontinence, nocturia, hematuria, dysuria, foul smelling urine, changes to urinary stream, flank pain, fever, and or chills. She is happy with her current voiding parameters. In office urinalysis results reviewed with the patient today. She otherwise offers no other issues or concerns at this time. [facility] Medical History Diverticulosis Kidney tumor Gastroesophageal reflux disease Helicobacter pylori (H. pylori) Tubular adenoma Other and unspecified hyperlipidemia Essential hypertension Surgical History History of surgery on arm History of bunionectomy of right great toe Hx of blepharoplasty History of esophagogastroduodenoscopy (EGD) Hx of colonoscopy H/O bilateral hip replacements History of cardiac catheterization (~07/05/18) Family History Father Myocardial infarction Hypertension Mother Diabetes Sister CVA (cerebral vascular accident) S/P CABG x 4 Sister Myocardial infarction Social History Are you a primary long term care pharmacist to a significant other at home: No (lives alone; recently 07/2022) Patient Tobacco Use Status: Never used Tobacco Advance Directives Date on File: 10/01/22 Review of Systems Const Reports as per HPI Eyes Reports no additional complaints ENT Reports no additional complaints Card Reports as per HPI Resp Reports no additional complaints GI Reports as per HPI Reports as per HPI Musc Reports as per HPI Neuro Reports no additional complaints Psych Reports as per HPI Endo Reports no additional complaints Physical Exam Const General: cooperative, healthy appearing, comfortable, no acute distress, well developed, alert and awake Orientation/consciousness: patient oriented x3 Limitations: ambulation with cane HEENT Head: Yes normal to inspection, Yes normocephalic and Yes atraumatic Ears: hearing grossly normal bilaterally Eyes General: appearance normal, both eyes and all related structures Neck Neck: Yes normal visual inspection and Yes trachea midline Chest Chest palpation & inspection: normal inspection of the chest Resp Effort & Inspection: normal respiratory effort and able to speak in complete sentences Cardio Rate: regular rate GI Inspection: Yes normal to inspection General: Yes no CVA tenderness Back/Spine/Pelvis Back: no CVA tenderness Skin General skin exam: no rashes or lesions noted Neuro General: patient oriented x3 Extrem General: Yes normal to inspection Psych Appearance: grossly normal and well kempt Mental Status: mental status grossly normal Speech and movement: Normal speech and movement present and Clear speech present Affect: normal affect Attitude: cooperative Thought process: Normal thought process present Thought content: Normal thought content present Insight: Fair insight present (Psych) Judgement: Fair judgement present (Psych) Results AMB Urinalysis, Automated UA Leukoctes 0 Estelita/uL Last Edit by Barbara Buchanan on 08/07/24 09:10 UA Nitrite Last Edit by Barbara Buchanan on 08/07/24 09:10 UA Urobilinogen 0.2 mg/dL Last Edit by Exceleramckenna Buchanan on 08/07/24 09:10 UA Protein 0 mg/dL Last Edit by Exceleramckenna cottonTrackswali on 08/07/24 09:10 UA pH 6.0 Last Edit by Exceleramckenna cottonTrackswali on 08/07/24 09:10 UA Blood 25 Jean Paul/uL Last Edit by Exceleramckenna cottonTrackswali on 08/07/24 09:10 UA Specific [place] 1.010 Last Edit by Exceleramckenna cottonTrackswali on 08/07/24 09:10 UA Ketone Last Edit by Exceleramckenna cottonTrackswali on 08/07/24 09:10 UA Bilirubin 0 mg/dL Last Edit by Exceleramckenna cottonTrackswali on 08/07/24 09:10 UA Glucose 0 mg/dL Last Edit by Exceleramckenna cottonTrackswali on 08/07/24 09:10 Results Reviewed Results Reviewed: Laboratory Last Values Urine pH (Auto) 6.0 08/07/24 08:59 Specific [place] (Auto) 1.010 08/07/24 08:59 Urine Protein (Auto) 0 mg/dL 08/07/24 08:59 Glucose (UA)(Auto) 0 mg/dL 08/07/24 08:59 Urine Blood (Auto) 25 Jean Paul/uL 08/07/24 08:59 Urine Bilirubin (Auto) 0 mg/dL 08/07/24 08:59 Urine Urobilinogen (Auto) 0.2 mg/dL 08/07/24 08:59 Leukocyte Esterase (Auto) 0 Estelita/uL 08/07/24 08:59 Date of Service: 06/20/24 EXAMINATION: XR CHEST 2 VIEWS FINDINGS: Minimal opacity in the left lower lung compatible scarring or discoid atelectasis. Lungs clear. Cardiomediastinal silhouette normal. Spondylosis throughout the dorsal spine. Chronic compression fracture of T12 unchanged. Suspect additional compression fracture T7 age-indeterminate There is an S-shaped curvature of the thoracolumbar spine. There is a convex left curvature measuring approximately 25 degrees between T11 and L1 IMPRESSION: 1. No acute disease. 2. Scoliosis. Age-indeterminate compression fractures of T7 vertebral body. Old compression fracture T12 unchanged. Assessment & Plan Assessment & Plan (1) Renal cell carcinoma: Code(s): C64.9 - Malignant neoplasm of unspecified kidney, except renal pelvis Category: Medical (2) Renal neoplasm: Code(s): D49.519 - Neoplasm of unspecified behavior of unspecified kidney Category: Medical Plan In office urinalysis results reviewed with the patient today; as noted above. Recent chest x-ray as well as renal ultrasound results reviewed with the patient today; as noted above. Patient currently denies any bothersome urinary issues or concerns. She reports be happy with current voiding parameters. We discussed importance of surveillance monitoring. Will obtain renal ultrasound in 6 months. Follow-up in 6 months with imaging to be completed prior; or sooner with any issues, concerns, and or questions. Orders: Orders AMB Urinalysis Automated 08/07/24 Z13.9 - Encounter for screening, unspecified US renal BI 6 Months C64.9 - Malignant neoplasm of unspecified kidney, except renal pelvis, D49.519 - Neoplasm of unspecified behavior of unspecified kidney Patient Instructions: The patient had an opportunity to ask questions regarding the treatment plan. All questions were answered. Physical exam, labs, and imaging were discussed and reviewed in detail. As well as risks, benefits, and discussion of treatment choices. No major barriers to understanding were identified. The patient expressed understanding and agreement with the above treatment plan. The patient was made aware they should contact our office by phone for worsening of their current condition, the appearance of new symptoms, or with any questions or concerns. Compliance is encouraged with any medications and follow up testing that is ordered. It is a privilege to be allowed the opportunity to participate in? your urological care.? Again, if you have any questions or concerns If you have any questions or concerns please do not hesitate to contact me. The office is [phone]. This note is constructed using voice recognition software. While every effort has been made to ensure accuracy outpatient facility physical therapist errors may have been included. Yours sincerely, JUAN Yip Coding Level of Care Code Est Pt Level 3 (33447) Complex EM visit Add On G2211 Diagnoses Renal cell carcinoma C64.9 Renal neoplasm D49.519
== END 2024-08-07 09:41 | disposition home or self-care (01) ==
PROVIDERS: PCP Internal Medicine; Visit Provider Nurse Practitioner Family
DX: Z13.9 Encounter for screening, unspecified (principal)

== ENCOUNTER → 2024-08-07 08:41 | Outpatient (BNVA) | payer MEDICARE, OTHER, SELFPAY | PROVIDERS: PCP Internal Medicine; Visit Provider Nurse Practitioner Family | DX: C64.9 Malignant neoplasm of unspecified kidney, except renal pelvis (principal); D49.519 Neoplasm of unspecified behavior of unspecified kidney | CPT/HCPCS: 81003; 99212 ==

== ENCOUNTER 2024-12-28 10:42 | Outpatient (AMB) | payer MEDICARE, OTHER, SELFPAY ==
--- NOTE | 2024-12-28 10:48 | MHC.OFFVIS ---
Vital Signs 12/28/24 11:24 Height 5 ft 2 in Weight 155 lb BMI 28.3 BP 156/88 H Blood Pressure Location Rt brachial Position Sitting Pulse 86 Pulse Source Pulse Oximeter Pulse Oximetry (%) 96 Oxygen Delivery Method Room Air Intake Visit Reasons: 6 month follow up Intake Note: ESTABLISHED PATIENT for mgmt of GERD. CC; Pt denies any GI sx at this time. PPI still working well. Pt is complaining of neuro/ortho issues but is seeing PCP about this. 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 Patient will avoid dietary triggers and late night snacking. Staying upright for minimum 3 hours after meals discussed with patient. Follow-up in 6 months, sooner on as needed basis. Patient will be due to go for colonoscopy in March of 2026. Patient is agreeable to this plan and verbalizes understanding of instructions. She was given the opportunity to ask questions and all questions answered. ? Thank you for allowing me to participate in her care Medications Refilled pantoprazole 20 mg PO DAILY 90 tabs 3RF TODAY'S VISIT: Patient is here today for follow-up. Patient reports that she has been feeling well. Denies any GI concerning symptoms. Patient feels like the dose of 20 mg of pantoprazole is working well for her. Patient denies any dyspepsia, dysphagia or odynophagia. Denies any nausea or vomiting. Good appetite. Patient reports that she has been getting out more with friends. Patient denies melena, hematochezia. Colonoscopy will be due next year in March. PFSH Medical History Diverticulosis Kidney tumor Gastroesophageal reflux disease Helicobacter pylori (H. pylori) Tubular adenoma Other and unspecified hyperlipidemia Essential hypertension Surgical History History of surgery on arm History of bunionectomy of right great toe Hx of blepharoplasty History of esophagogastroduodenoscopy (EGD) Hx of colonoscopy H/O bilateral hip replacements History of cardiac catheterization (~07/05/18) Family History Father Myocardial infarction Hypertension Mother Diabetes Sister CVA (cerebral vascular accident) S/P CABG x 4 Sister Myocardial infarction Social History Are you a primary resident care manager rn to a significant other at home: No (lives alone; recently 07/2022) Patient Tobacco Use Status: Never used Tobacco Advance Directives Date on File: 10/01/22 Review of Systems Const Denies weight gain and Denies weight loss ENT Reports no additional complaints, Denies dysphagia and Denies odynophagia Card Reports no additional complaints Resp Reports no additional complaints GI Denies abdominal pain, Denies belching, Denies melena, Denies bloating, Denies change in bowel habits, Denies dysphagia, Denies excessive flatus, Denies dyspepsia, Denies heartburn, Denies diarrhea, Denies loose stools, Denies nausea, Denies odynophagia and Denies vomiting Musc Reports no additional complaints Neuro Reports no additional complaints Psych Reports no additional complaints Endo Reports no additional complaints Physical Exam Vital Signs: Last Vital Signs Pulse 86 12/28/24 11:24 BP 156/88 H 12/28/24 11:24 Pulse Ox 96 12/28/24 11:24 Oxygen Delivery Method Room Air 12/28/24 11:24 BMI result Body Mass Index 28.3 Const Other: Walking with cane General: healthy appearing, no acute distress and well developed Nutritional Appearance: well nourished Orientation/consciousness: patient oriented x3 Eyes General: appearance normal, both eyes and all related structures Neck Neck: Yes normal visual inspection, Yes full ROM and Yes trachea midline Thyroid: Thyroid normal Resp Effort & Inspection: normal respiratory effort, able to speak in complete sentences, no tracheal deviation and symmetric chest movement Auscultation: clear to auscultation bilaterally Cardio Rate: regular rate GI Inspection: Yes normal to inspection and No distended Palpation (GI): Soft to palpation, not firm, nontender and No hepatosplenomegaly present Auscultation: normal bowel sounds General: Yes no CVA tenderness Back/Spine/Pelvis Back: no CVA tenderness Skin General skin exam: elasticity normal, turgor normal and dry skin Neuro General: patient oriented x3 Extrem Other: Bilateral lower extremity edema Psych Appearance: grossly normal Mental Status: mental status grossly normal Speech and movement: Normal speech and movement present Affect: normal affect Attitude: cooperative Thought process: Normal thought process present Thought content: Normal thought content present Insight: Good insight present (Psych) Judgement: Good judgement present (Psych) Assessment & Plan Assessment & Plan (1) Gastroesophageal reflux disease: Code(s): K21.9 - Gastro-esophageal reflux disease without esophagitis Category: Medical Qualifiers: Esophagitis presence: without esophagitis Qualified Code(s): K21.9 - Gastro-esophageal reflux disease without esophagitis (2) Diverticulosis: Code(s): K57.90 - Diverticulosis of intestine, part unspecified, without perforation or abscess without bleeding Category: Medical Plan Patient will continue taking pantoprazole daily. Avoid dietary triggers and late night snacking. Staying upright for minimum 3 hours after meals discussed with patient. History of diverticulosis found on colonoscopy. Patient will continue high-fiber diet. Increase fluid intake and activity to promote better bowel motility. Follow-up in 6 months, sooner on as needed basis. She is agreeable to this plan and verbalizes understanding of instructions. She was given the opportunity to ask questions and all questions answered. Thank you for allowing me to participate in her care Medications: Refilled pantoprazole 20 mg PO DAILY 90 tabs 3RF Coding Level of Care Code Est Pt Level 3 (16734) Diagnoses Gastroesophageal reflux disease without esophagitis K21.9 Esophagitis presence: without esophagitis Diverticulosis K57.90 Time Spent (min) 25 Comment 15 minutes spent with patient and additional 10 minutes spent reviewing her records
[2024-12-28 11:24] VITALS: BP 156/88; PULSE 86; O2SAT 96; BMI 28.3
== END 2024-12-28 11:22 | disposition home or self-care (01) ==
PROVIDERS: PCP Internal Medicine; Visit Provider Nurse Practitioner Family
DX: K21.9 Gastro-esophageal reflux disease without esophagitis (principal); K57.90 Diverticulosis of intestine, part unspecified, without perforation or abscess without bleeding
CPT/HCPCS: 99213

== ENCOUNTER → 2024-12-28 10:42 | Outpatient (BNVA) | payer MEDICARE, OTHER, SELFPAY | PROVIDERS: PCP Internal Medicine; Visit Provider Nurse Practitioner Family | DX: K21.9 Gastro-esophageal reflux disease without esophagitis (principal); K57.90 Diverticulosis of intestine, part unspecified, without perforation or abscess without bleeding | CPT/HCPCS: 99212 ==

== ENCOUNTER 2025-01-21 09:48 | Outpatient (REF) | payer MEDICARE, OTHER, SELFPAY ==
--- NOTE | ~2025-01-21 | US_ITS ---
CLINICAL HISTORY: C64.9 - Malignant neoplasm of unspecified kidney, except renal pelvis US Renal Comparison: None Findings: Right kidney normal size and echotexture, 10.3 cm length. There is a focus of scarring within the midportion of the right kidney. Left kidney normal size and echotexture, 9.6 cm length. There are 2 cysts within the upper pole of the left kidney, measuring 2.9 x 2.5 x 2.4 cm and 1.2 x 1.1 x 1.0 cm. There is a 3 mm nonobstructive calculus within the upper pole of the left kidney. No collecting system dilatation of either kidney. Normal color Doppler. IMPRESSION: 1. There is a focus of scarring within the right kidney. 2. There are 2 left kidney cysts, the larger measuring 2.9 cm in size. 3. There is a 3 mm nonobstructive calculus within the left kidney. This document has been electronically signed by: Laurence Vasques MD on 01/21/2025 17:03:19
== END 2025-01-21 09:49 | disposition home or self-care (01) ==
LOC: HO.HMGCX 09:48
PROVIDERS: PCP Internal Medicine; Visit Provider Nurse Practitioner Family
DX: C64.9 Malignant neoplasm of unspecified kidney, except renal pelvis (principal); D49.519 Neoplasm of unspecified behavior of unspecified kidney
CPT/HCPCS: 76775

== ENCOUNTER → 2025-01-21 10:01 | Outpatient (BNV) | payer MEDICARE, OTHER, SELFPAY | PROVIDERS: PCP Internal Medicine; Visit Provider Radiology Diagnostic Radiology | DX: N20.0 Calculus of kidney (principal); N28.1 Cyst of kidney, acquired | CPT/HCPCS: 76775 ==

== ENCOUNTER 2025-04-03 08:19 | Outpatient (REF) | payer MEDICARE, OTHER, SELFPAY | END 2025-04-03 08:20 | disposition home or self-care (01) | LOC: HO.LAB 08:19 | PROVIDERS: PCP Internal Medicine; Visit Provider Nurse Practitioner Family | DX: R31.29 Other microscopic hematuria (principal); C64.9 Malignant neoplasm of unspecified kidney, except renal pelvis; Z79.899 Other long term (current) drug therapy | CPT/HCPCS: 81003; 88112; 99212 ==

== ENCOUNTER 2025-04-03 08:19 | Outpatient (AMB) | payer MEDICARE, OTHER, SELFPAY ==
--- NOTE | 2025-04-03 08:22 | MHC.OFFVIS ---
Intake Visit Reasons: follow up/US Intake Note: Patient is present for US F/U Urology Medication:NONE Antibiotic Allergy:SULFA Blood Thinner:NONE [employer] Required: No Allergies silver sulfadiazine (From SILVADENE) Allergy (Mild, Verified 04/03/25 08:54) RASH Sulfa (Sulfonamide Antibiotics) Allergy (Mild, Verified 04/03/25 08:54) mild Medication List - Last Reconciled 04/03/25 by JUAN Yip ascorbic acid (vitamin C) (Vitamin C) 1,000 mg PO DAILY glucosamine sulfate (Glucosamine) 1,000 mg PO BID omega-3 fatty acids 500 mg PO DAILY pantoprazole 20 mg PO DAILY rosuvastatin 10 mg PO BEDTIME HPI Comments Details: Alexandra is a pleasant 75-year-old female patient of Dr. Moreira. She has a past medical history of diverticulosis, renal cell carcinoma, GERD, H pylori, and hypertension. She presents to the office today for follow-up of her renal cell carcinoma. Of note patient underwent right-sided cryoablation with Interventional Radiology and Dr. Tejada 06/06. In discussion with the patient today she reports to be doing and feeling well. She denies any bothersome urinary issues or concerns. She discusses continuing to adjust to her life with the loss of her in 08/05. Recent renal ultrasound results reviewed with the patient today 02/06 there is a focus of scarring within the right kidney. There are 2 left renal cysts larger measuring 2.9 cm in size. There is a 3 mm nonobstructive calculus within the left kidney. Previous imaging as followed: CT abdomen and pelvis with and without contrast 11/05: Punctate nonobstructing left renal calyceal stones. Reported interval right renal cryoablation. Expected decrease in soft tissue attenuation at the interpolar kidney where there was previously an enhancing mass. No suspicious enhancement within limits of CT technique. No new renal masses. Bilateral cortical cysts. No hydronephrosis. CT chest with contrast 11/05: central airways are patent. Mild diffuse bronchial wall thickening. Subsegmental atelectasis at the posterior lower lobes, inferior lingular, and inferior right middle lobe. 2-3 mm left upper triangular Eileen fissural nodules, likely intrapulmonary lymph nodes. No suspicious nodules seen. No consolidation. Renal ultrasound 07/08 notes bilateral kidneys with no hydronephrosis. Lateral right renal mid pole defect characteristic of scar. Left kidney with nonobstructing 5 mm upper pole calculus left kidney with upper pole simple appearing cyst that requires no follow-up imaging per radiology report. Chest x-ray 07/08 Minimal opacity in the left lower lung compatible scarring or discoid atelectasis, lungs clear, Cardiomediastinal silhouette normal. No acute disease. Scoliosis. Age indeterminate compression fracture of T7 vertebral body. Old compression fracture T12 unchanged. We discussed continuation of surveillance monitoring. She denies urinary urgency, urinary frequency, incontinence, nocturia, hematuria, dysuria, foul smelling urine, changes to urinary stream, flank pain, fever, and or chills. She is happy with her current voiding parameters. In office urinalysis results reviewed with the patient today. She discusses her initial appointment was with Dr. Fantasma Camara and like to continue with follow-ups. She otherwise offers no other issues or concerns at this time. [facility] Medical History Diverticulosis Kidney tumor Gastroesophageal reflux disease Helicobacter pylori (H. pylori) Tubular adenoma Other and unspecified hyperlipidemia Essential hypertension Surgical History History of surgery on arm History of bunionectomy of right great toe Hx of blepharoplasty History of esophagogastroduodenoscopy (EGD) Hx of colonoscopy H/O bilateral hip replacements History of cardiac catheterization (~07/05/18) Family History Father Myocardial infarction Hypertension Mother Diabetes Sister CVA (cerebral vascular accident) S/P CABG x 4 Sister Myocardial infarction Social History Are you a primary home day care provider to a significant other at home: No (lives alone; recently 07/2022) Patient Tobacco Use Status: Never used Tobacco Advance Directives Date on File: 10/01/22 Review of Systems Const Reports as per HPI Eyes Reports no additional complaints ENT Reports no additional complaints Card Reports as per HPI Resp Reports no additional complaints GI Reports as per HPI Reports as per HPI Musc Reports as per HPI Neuro Reports no additional complaints Psych Reports as per HPI Endo Reports no additional complaints Physical Exam Const General: cooperative, healthy appearing, comfortable, no acute distress, well developed, alert and awake Orientation/consciousness: patient oriented x3 Limitations: ambulation with cane HEENT Head: Yes normal to inspection, Yes normocephalic and Yes atraumatic Ears: hearing grossly normal bilaterally Eyes General: appearance normal, both eyes and all related structures Neck Neck: Yes normal visual inspection and Yes trachea midline Chest Chest palpation & inspection: normal inspection of the chest Resp Effort & Inspection: normal respiratory effort and able to speak in complete sentences Cardio Rate: regular rate GI Inspection: Yes normal to inspection General: Yes no CVA tenderness Back/Spine/Pelvis Back: no CVA tenderness Skin General skin exam: no rashes or lesions noted Neuro General: patient oriented x3 Extrem General: Yes normal to inspection Psych Appearance: grossly normal and well kempt Mental Status: mental status grossly normal Speech and movement: Normal speech and movement present and Clear speech present Affect: normal affect Attitude: cooperative Thought process: Normal thought process present Thought content: Normal thought content present Insight: Fair insight present (Psych) Judgement: Fair judgement present (Psych) Results AMB Urinalysis, Automated UA Leukoctes 0 Estelita/uL Last Edit by SHARITA Chowdary on 04/03/25 08:35 UA Nitrite Negative Last Edit by SHARITA Chowdary on 04/03/25 08:35 UA Urobilinogen 0.2 mg/dL Last Edit by SHARITA Chowdary on 04/03/25 08:35 UA Protein 0 mg/dL Last Edit by SHARITA Chowdary on 04/03/25 08:35 UA pH 6.5 Last Edit by SHARITA Chowdary on 04/03/25 08:35 UA Blood 10 Jean Paul/uL Last Edit by SHARITA Chowdary on 04/03/25 08:35 UA Specific [place] 1.010 Last Edit by SHARITA Chowdary on 04/03/25 08:35 UA Ketone Negative Last Edit by SHARITA Chowdary on 04/03/25 08:35 UA Bilirubin 0 mg/dL Last Edit by SHARITA Chowdary on 04/03/25 08:35 UA Glucose 0 mg/dL Last Edit by SHARITA Chowdary on 04/03/25 08:35 Results Reviewed Results Reviewed: Laboratory Last Values Urine pH (Auto) 6.5 04/03/25 08:34 Specific [place] (Auto) 1.010 04/03/25 08:34 Urine Protein (Auto) 0 mg/dL 04/03/25 08:34 Glucose (UA)(Auto) 0 mg/dL 04/03/25 08:34 Urine Ketones (Auto) Negative 04/03/25 08:34 Urine Blood (Auto) 10 Jean Paul/uL 04/03/25 08:34 Urine Nitrite (Auto) Negative 04/03/25 08:34 Urine Bilirubin (Auto) 0 mg/dL 04/03/25 08:34 Urine Urobilinogen (Auto) 0.2 mg/dL 04/03/25 08:34 Leukocyte Esterase (Auto) 0 Estelita/uL 04/03/25 08:34 Date of Service: 01/21/25 Procedure(s): US renal BI US Renal Comparison: None Findings: Right kidney normal size and echotexture, 10.3 cm length. There is a focus of scarring within the midportion of the right kidney. Left kidney normal size and echotexture, 9.6 cm length. There are 2 cysts within the upper pole of the left kidney, measuring 2.9 x 2.5 x 2.4 cm and 1.2 x 1.1 x 1.0 cm. There is a 3 mm nonobstructive calculus within the upper pole of the left kidney. No collecting system dilatation of either kidney. Normal color Doppler. IMPRESSION: 1. There is a focus of scarring within the right kidney. 2. There are 2 left kidney cysts, the larger measuring 2.9 cm in size. 3. There is a 3 mm nonobstructive calculus within the left kidney. Assessment & Plan Assessment & Plan (1) Renal cell carcinoma: Code(s): C64.9 - Malignant neoplasm of unspecified kidney, except renal pelvis Category: Medical Plan In office urinalysis results reviewed with the patient today; as noted above; will send for urine cytology. Recent renal imaging results reviewed with the patient today; as noted above. Will continue with surveillance monitoring. She currently denies any bothersome urinary issues or concerns. She reports be happy with current voiding parameters. Will obtain CT of the chest. BUN and creatinine ordered for imaging. Will obtain CT abdomen and pelvis in 6 months. Follow-up in 6 months with labs and imaging to be completed prior; or sooner with any issues, concerns, and or questions. Orders: Orders Urine Cytology Today R31.29 - Other microscopic hematuria CT chest wo/w IV con Today C64.9 - Malignant neoplasm of unspecified kidney, except renal pelvis Blood Urea Nitrogen Today R39.15 - Urgency of urination Creatinine Today R39.15 - Urgency of urination Blood Urea Nitrogen 6 Months R39.15 - Urgency of urination AMB Urinalysis Automated Today Z13.9 - Encounter for screening, unspecified CT abdomen wo/w IV con 6 Months C64.9 - Malignant neoplasm of unspecified kidney, except renal pelvis Creatinine 6 Months R39.15 - Urgency of urination Patient Instructions: The patient had an opportunity to ask questions regarding the treatment plan. All questions were answered. Physical exam, labs, and imaging were discussed and reviewed in detail. As well as risks, benefits, and discussion of treatment choices. No major barriers to understanding were identified. The patient expressed understanding and agreement with the above treatment plan. The patient was made aware they should contact our office by phone for worsening of their current condition, the appearance of new symptoms, or with any questions or concerns. Compliance is encouraged with any medications and follow up testing that is ordered. It is a privilege to be allowed the opportunity to participate in? your urological care.? Again, if you have any questions or concerns If you have any questions or concerns please do not hesitate to contact me. The office is [phone]. This note is constructed using voice recognition software. While every effort has been made to ensure accuracy commercial sewing instructor errors may have been included. Yours sincerely, JUAN Yip Coding Level of Care Code Est Pt Level 3 (71629) Complex EM visit Add On G2211 Diagnoses Renal cell carcinoma C64.9
--- OUTSIDE RECORDS SUMMARY | 2025-04-03 08:52 | XMS_ITS | Encounter Summary ---
Author Organization [facility] Address [address] [place] [address] Phone Care Team Providers Care [facility]ard Name Role Phone Brandon Granados MD Primary Care Provider [phone] Korey Coffman MD Unavailable [phone] Nj Francis MD Unavailable [phone] Joanna Duran MD Unavailable [phone] Brandon Granados MD Unavailable [phone] Encounter Details Date Type Department Care Team (Late st Contact Info) Description 03/08/2025 Orders Only [facility] [address] [place] [id number] Provider, MD Marilyn [address] [place] [id number] Social History Tobacco Use Types Packs/Day Years Used Date Smoking Tobacco: Never Smokeless Tobacco: Never Alcohol Use Standard Drinks/Week Comments Yes 0 (1 standard drink = 0.6 oz pur e alcohol) once to twice a year, rare Education Answer Date Recorded Are you interested in more education? Not on gus e 12/09/2022 Are you concerned about learning? Not on file 12/09/2022 No 12/09/2022 No 12/09/2022 Digital Access Answer Date Recorded No 01/05/2023 No 01/05/2023 Reliable internet access at home? Not on file 01/05/2023 Device with a working camera? Not on file Intimate Partner Violence Answer Date R ecorded Denied Basic Needs Not on file 11/06/2024 In the past 12 months have y ou been in a relationship with a person who hurts, threatens, or tries to control you? No 11/06/2024 Worried food would run out Not on file 11/06 In the past 12 months have y ou been in a relationship with a person who hurts, threatens, or tries to control you? No 11/06/2024 Comments No Sex and Gender Information Value Date Recorded Sex Assigned at Female 09/12/2020 1:22 PM EST Legal Sex Female 9:02 AM EDT Gender Identity Female 09/12/2020 1:22 PM EST Sexual Orientation Not on file Occupation Industry Job Start Date Job End Date retired Not on file Not on file Not on file documented as of this encounter Plan of Treatment Upcoming Encounters Date Type Department Care Team (Late st Contact Info) Description 06/05/2025 8:30 AM EDT Office Visit [facility] Internal Medicine [address] [place] [phone] Brandon Granados MD [address] [place] [address] 03/07/2026 9:10 AM EDT Office Visit [facility] [address] [place] [id number] Henry Dias DO [address] [place] [address] documented as of this encounter Procedures Procedure Name Priority Date/Time Associated Diagnosis Comments HM DEXA SCAN Routine 02/18/2025 9:44 AM EDT documented in this encounter Results * HM DEXA SCAN (02/18/2025 9:44 AM EDT) us Historical Provider HEALTH MAINTENANCE Final Result documented in this encounter Visit Diagnoses Not on filedocumented in this encounter Additional Health Concerns Assessment Noted Time PHQ-2 Depression Total Score: 0 11/07/19 1:40 PM EDT documented as of this encounter Care Teams [facility] Relationship Specialty Start Date End Date Brandon Granados MD [address] [place] [phone] [email or web address] PCP - General Internal Medicine 09/11/20 Korey Coffman MD [address] [address] Cardiology 03/13/21 Nj Francis MD [address] [place] [phone] [email or web address] Urology 02/16/22 Joanna Duran MD [address] [place] [address] [address] [place] [phone] Obstetrics and Gynecology 02/16/22 Brandon Granados MD [address] [place] [phone] [email or web address] Insurance Assigned Provider 12/24/23 documented as of this encounter Additional Source Comments The information contained in this document represents components of the legal health record. It is not the complete legal health record.[facility]
== END 2025-04-03 08:56 | disposition home or self-care (01) ==
LOC: HO.HUSH 08:19
PROVIDERS: PCP Internal Medicine; Visit Provider Nurse Practitioner Family
DX: C64.9 Malignant neoplasm of unspecified kidney, except renal pelvis (principal); Z13.9 Encounter for screening, unspecified
CPT/HCPCS: 99213; G2211

== ENCOUNTER 2025-05-25 09:52 | Emergency (ER) | payer MEDICARE, OTHER, SELFPAY ==
--- NOTE | ~2025-05-25 | XR_ITS ---
CLINICAL HISTORY: pain, injury 4 view left knee Comparison: None provided Findings: No acute or displaced fracture. No subluxation. No apparent knee joint effusion. Moderate to severe tricompartmental osteoarthritis. No radiodense soft tissue foreign bodies. Vascular calcifications. Impression: 1. No acute fracture or subluxation. This document has been electronically signed by: Dasha Earl MD on 05/25/2025 11:46:13
--- NOTE | ~2025-05-25 | MR_ITS ---
CLINICAL HISTORY: possible cervical fracture, trauma, pain --- Additional Notes or Special Instructions: Patient had a fall with head strike and immediate neck pain Cervical MRI without contrast: Comparison: CT 05/25/2025 Findings: Paravertebral soft tissues are unremarkable. Craniocervical junction is aligned. No fractures and no subluxations. Bone marrow signal intensity and cellularity are normal. Spinal cord morphology and signal are normal. C1-C2: No malalignment. Ligaments are intact. C2-C3: No disc protrusion. No foraminal stenosis. C3-C4: There is ankylosis of the C3-4 disc space, with moderate foraminal stenosis due to uncovertebral joint and facet hypertrophy on the right. C4-C5: Uncovertebral joint and facet hypertrophy with advanced foraminal stenosis on the right and mild foraminal stenosis on the left. C5-C6: No acute disc protrusion. There is uncovertebral joint and facet hypertrophy with moderate bilateral foraminal stenosis at C5-6. C6-C7: Uncovertebral joint and facet hypertrophy with moderate bilateral foraminal stenosis. Impression: Multilevel degenerative foraminal stenosis. No signs of acute disc protrusion. No signs of compression myelopathy. The outstanding feature of this examination is advanced foraminal stenosis at C4-5 on the right. This document has been electronically signed by: Isai Mensah MD on 05/25/2025 14:21:48
--- NOTE | ~2025-05-25 | CT_ITS ---
CLINICAL HISTORY: head strike, fall, pain CT head without contrast Comparison: CT head 04/02/2023 Findings: No intra-axial mass, midline shift, hydrocephalus, or acute hemorrhage. Moderate atrophy-like change and white matter disease. There is no sinus or mastoid fluid. The orbits are unremarkable. There is no acute fracture. IMPRESSION: 1. No acute intracranial findings. 2. Additional findings as above. This document has been electronically signed by: Dasha Earl MD on 05/25/2025 11:44:11
--- NOTE | ~2025-05-25 | CT_ITS ---
CLINICAL HISTORY: head strike, fall, pain CT cervical spine without contrast Comparison: None provided Findings: Straightening and mild partial reversal of normal cervical spine lordosis. There is no definite acute or displaced fracture identified. Extensive multilevel endplate, discogenic and facet arthropathy mainly centered in the upper to mid cervical spine. These findings are most conspicuous along the left-sided C1-C2 articulation where there is evidence of extensive narrowing of articular spaces with associated severe subchondral cystic and sclerotic changes. Acquired degenerative fusion across C3-C4 interspace. Evidence of at least moderate narrowing of spinal canal at C5-C6. No acute findings within visualized paraspinal soft tissues. Moderate bilateral carotid bulb calcifications. No acute findings within visualized lung apices. Impression: 1. No definite acute cervical spine fracture or traumatic subluxation. Of note, subtle fractures may be occult in the setting of extensive multilevel degenerative changes such as in this case. Therefore, if there is high clinical degree of suspicion then MRI should be considered to assess for reactive marrow changes. 2. Chronic/nonacute findings as above. This document has been electronically signed by: Dasha Earl MD on 05/25/2025 11:41:50
[2025-05-25 09:57] VITALS: BP 162/86; PULSE 80; O2SAT 99
--- NOTE | 2025-05-25 10:00 | ED_ITS ---
HPI - General Adult General Chief complaint: Fall Stated complaint: FALL + C COLLAR Time Seen by Provider: 05/25/25 10:00 Source: patient and EMS Mode of arrival: EMS Limitations: no limitations History of Present Illness ED Provider: Cindy Patel PA-C HPI narrative: Patient is a 75 year old assigned female at with a history of HTN, GERD, renal mass, and unsteady gait for which she uses a crutch / cane, presenting to the emergency department today with left knee pain and left sided neck pain after a trip and fall. Patient states that she tripped and fell at 0900 this morning but did not have any loss of consciousness. Patient denies any other complaints at this time. Related Data Home Medications ?Medication ?Instructions ?Recorded ?Confirmed ascorbic acid (vitamin C) 1,000 mg 1,000 mg PO DAILY 0 04/02/23 04/03/25 tablet (Vitamin C) glucosamine sulfate 500 mg tablet 1,000 mg PO BID 03/1504/03/25 (Glucosamine) omega-3 fatty acids 500 mg capsule 500 mg PO DAILY 04/03/25 rosuvastatin 10 mg tablet 10 mg PO BEDTIME 04/02/23 Previous Rx's ?Medication ?Instructions ?Recorded pantoprazole 20 mg tablet,delayed 20 mg PO DAILY #90 t abs 12/28/24 release Allergies Allergy/AdvReac Type Severity Reaction Status Date / Time silver sulfadiazine (From Allergy Mild RASH Verified 05/25/25 10:05 SILVADENE) Sulfa (Sulfonamide Allergy Mild mild Verified 05/25/25 10:05 Antibiotics) Review of Systems 2 Constitutional: Constitutional: Reports as per HPI Eyes: Eyes: Reports as per HPI ENT: Reports as per HPI Cardiovascular: Cardiovascular: Reports as per HPI Respiratory: Respiratory: Reports as per HPI Gastrointestinal: Gastrointestinal: Reports as per HPI Genitourinary: Genitourinary: Reports as per HPI Musculoskeletal: Musculoskeletal: Reports as per HPI Integumentary/Breasts: Skin/Breast: Reports as per HPI Neurologic: Reports as per HPI Psychiatric: Psychiatric: Reports as per HPI Endocrine: Endocrine: Reports as per HPI Hematologic/Lymphatic: Hematologic/Lymphatic: Reports as per HPI Allergic/Immunologic: Allergic/Immunologic: Reports as per HPI PMF Past Medical History Attestation statement: The following information was validated with the patient. Source: old records reviewed and nursing notes reviewed Medical History Diverticulosis Kidney tumor Gastroesophageal reflux disease Helicobacter pylori (H. pylori) Tubular adenoma Other and unspecified hyperlipidemia Essential hypertension Surgical History History of surgery on arm History of bunionectomy of right great toe Hx of blepharoplasty History of esophagogastroduodenoscopy (EGD) Hx of colonoscopy H/O bilateral hip replacements History of cardiac catheterization (~07/05/18) Family History Family History Father Myocardial infarction Hypertension Mother Diabetes Sister CVA (cerebral vascular accident) S/P CABG x 4 Sister Myocardial infarction Social History Social History Are you a primary rn patient care to a significant other at home: No (lives alone; recently 07/2022) Alcohol intake: former Patient Tobacco Use Status: Never used Tobacco Smoked in Last 30 Days: No Use of substances other than those prescribed or required for medical reasons: No Advance Directives: Yes Advance Directives Information Provided: No Advance Directives on File: No Advance Directives Date on File: 10/01/22 Physical Exam ED Vital Signs: Vital Signs - 24 hr 05/25/25 10:02 05/25/25 10:13 05/25/25 11:01 Temperature 98.8 F Pulse Rate 71 81 Respiratory Rate 18 17 Blood Pressure 187/79 H Pulse Oximetry 98 98 Oxygen Delivery Method Room Air Room Air 05/25/25 14:58 Temperature 98.8 F Pulse Rate 79 Respiratory Rate 17 Blood Pressure 177/72 H Pulse Oximetry 99 Oxygen Delivery Method Room Air BMI result Body Mass Index 29.3 Const General: cooperative, no acute distress, alert and awake Nutritional Appearance: well nourished Orientation/consciousness: patient oriented x3 HENMT Head: Yes normal to inspection and Yes atraumatic Ears: hearing grossly normal bilaterally and external ears normal General nose exam: Normal external nose present, no nasal discharge noted and no epistaxis Face and sinus: Yes normal facial exam, No abrasion and No laceration Mouth: Normal oral and palatal mucosa present, no drooling and no muffled voice Eyes General: appearance normal, both eyes and all related structures Periorbital: periorbital findings normal Eyelids: Yes eyelids normal Conjunctivae: conjunctivae normal Pupils: Equal, round and reactive pupils present EOM: EOMs intact bilaterally Neck Neck: Yes normal visual inspection and Yes full ROM Resp Effort & Inspection: normal respiratory effort and able to speak in complete sentences Neuro General: patient oriented x3, moves all extremities and CN's II-XI intact bilaterally Cranial nerves: Yes Equal, round and reactive pupils present Cognition (Neuro): normal cognition Extrem Other: small abrasion to the palmar aspect of the right hand - not actively bleeding, no gaping. General: Yes full ROM and Yes capillary refill normal Psych Appearance: grossly normal Mental Status: mental status grossly normal Affect: normal affect Attitude: cooperative Thought process: Normal thought process present Thought content: Normal thought content present Insight: Good insight present (Psych) Medical Decision Making Medical Decision Making MDM Narrative: Patient is a 75 year old assigned female at with a history of HTN, GERD, renal mass, and unsteady gait for which she uses a crutch / cane, presenting to the emergency department today with left knee pain and left sided neck pain after a trip and fall. Patient's physical exam was as noted in the physical exam portion of this note. Patient's blood work was unremarkable. Patient's EKG was unremarkable. Patient's left knee x-ray showed no acute process. Patient's CT head was negative. Patient's CT c-spine showed evidence of severe arthritis and cannot rule out an occult fracture - the radiologist recommended an MRI to better differentiate fracture vs. not. Patient's MRI of her c-spine showed no acute fracture. I explained my physical exam findings as well as all test results to the patient. I answered all questions asked by the patient. I stressed the importance of the patient taking her medication as directed (either prescribed or as the over the counter packaging recommends). I stressed the importance of the patient following up with her primary care provider. I stressed the importance of the patient returning to the emergency department immediately if her symptoms were to worsen or if she were to develop any dizziness, shortness of breath, difficulty breathing, chest pain, blurry vision, loss of vision, nausea, vomiting, abdominal pain, fever, chills, back pain, or any other complaints. Patient verbalized agreement and understanding with this treatment plan and discharge. Differential Diagnosis Differential Diagnoses: The differential diagnosis associated with the presentation includes Neck pain Neck strain Knee pain Knee sprain Trip and fall Mechanical fall Admission/Observation Consideration of admission/observation: Escalation of care including admission/observation considered Patient would have been admitted to the hospital had her work up had any findings where hospital admission was appropriate and her clinical presentation warranted hospital admission. Lab Data [facility] Lab Attestation statement: I reviewed the patient's lab results. My interpretation of these results are in the [facility] Rationale portion of this note. 05/25/25 11:22 05/25/25 11:22 Labs: Lab Results 05/25/25 Range/Units 11:22 WBC 6.3 (4.8-10.8) X10*3/uL RBC 4.54 (4.20-5.50) X10*6/uL Hgb 13.2 (12.0-16.0) g/dl Hct 40.9 (37.0-47.0) % MCV 90.1 (80.0-98.0) fL MCH 29.1 (27.0-33.0) pg MCHC 32.3 (31.0-35.0) g/dl RDW 13.5 (11.0-16.0) % Plt Count 317 (160-400) X10*3/uL MPV 9.9 (9.4-12.3) fL Immature Gran % (Auto) 0.3 (0.0-0.4) % Neut % (Auto) 64.1 (45-73) % Lymph % (Auto) 26.0 (20-40) % [place] % (Auto) 7.2 (2-11) % Eos % (Auto) 1.8 (0-4) % Baso % (Auto) 0.6 (0-2) % Lymph # (Auto) 1.6 (1.2-4.9) X10*3/uL [place] # (Auto) 0.5 (0.1-1.2) X10*3/uL Eos # (Auto) 0.1 (0.0-0.4) X10*3/uL Baso # (Auto) 0.0 (0.0-0.2) X10*3/uL Abs Immat Gran (auto) 0.02 (0.00-0.03) X10*3/uL Absolute Neuts (auto) 4.0 (2.0-8.3) x10*3/uL Absolute Nucleated RBC 0.000 (0.0-0.012) X10*3/uL Nucleated RBC % (auto) 0.0 (0.0-0.2) /100WBC Sodium 143 (135-145) mmol/L Potassium 4.3 (3.3-5.1) mmol/L Chloride 109 H (96-108) mmol/L Carbon Dioxide 26 (22-29) mmol/L Anion Gap 12 (12-20) BUN 16 (9-16) mg/dL Creatinine 0.60 (0.5-1.4) mg/dL Estim Creat Clear Calc 70.4 Estimated GFR > 60 Random Glucose 104 (60-115) mg/dL Calcium 9.4 (8.4-10.2) mg/dL Magnesium 2.2 (1.6-2.6) mg/dL Total Bilirubin 0.3 (0.0-1.0) mg/dL AST 28 (5-31) U/L ALT 15 (0-31) U/L Alkaline Phosphatase 94 (39-117) U/L Troponin I High Sens 5.4 (<3.5-17.0) ng/L NT-Pro-B Natriuret Pep 384.3 H (<300) pg/mL Total Protein 7.1 (6.5-8.0) g/dL Albumin 4.5 (3.5-5.0) g/dL TSH 1.82 (0.32-4.0) uIU/mL Independent Interpretation I performed an independent interpretation of an: EKG, Plain X-Ray and CT Scan Interpretation: My interpretation is in agreement with the radiologist's impression of these imaging studies. L Report Number: [id number] Reason for Exam: head strike, fall, pain CLINICAL HISTORY: head strike, fall, pain CT cervical spine without contrast Comparison: None provided Findings: Straightening and mild partial reversal of normal cervical spine lordosis. There is no definite acute or displaced fracture identified. Extensive multilevel endplate, discogenic and facet arthropathy mainly centered in the upper to mid cervical spine. These findings are most conspicuous along the left-sided C1-C2 articulation where there is evidence of extensive narrowing of articular spaces with associated severe subchondral cystic and sclerotic changes. Acquired degenerative fusion across C3-C4 interspace. Evidence of at least moderate narrowing of spinal canal at C5-C6. No acute findings within visualized paraspinal soft tissues. Moderate bilateral carotid bulb calcifications. No acute findings within visualized lung apices. Impression: 1. No definite acute cervical spine fracture or traumatic subluxation. Of note, subtle fractures may be occult in the setting of extensive multilevel degenerative changes such as in this case. Therefore, if there is high clinical degree of suspicion then MRI should be considered to assess for reactive marrow changes. 2. Chronic/nonacute findings as above. This document has been electronically signed by: Dasha Earl MD on 05/25/2025 11:41:50 Dictated By: Dasha Earl MD Signed By: Electronically signed by Dasha Earl MD 05/25/25 1143 Report Number: [id number] Reason for Exam: head strike, fall, pain CLINICAL HISTORY: head strike, fall, pain CT head without contrast Comparison: CT head 04/02/2023 Findings: No intra-axial mass, midline shift, hydrocephalus, or acute hemorrhage. Moderate atrophy-like change and white matter disease. There is no sinus or mastoid fluid. The orbits are unremarkable. There is no acute fracture. IMPRESSION: 1. No acute intracranial findings. 2. Additional findings as above. This document has been electronically signed by: Dasha Earl MD on 05/25/2025 11:44:11 Dictated By: Dasha Earl MD Signed By: Electronically signed by Dasha Earl MD 05/25/25 1145 Reason for Exam: pain, injury CLINICAL HISTORY: pain, injury 4 view left knee Comparison: None provided Findings: No acute or displaced fracture. No subluxation. No apparent knee joint effusion. Moderate to severe tricompartmental osteoarthritis. No radiodense soft tissue foreign bodies. Vascular calcifications. Impression: 1. No acute fracture or subluxation. This document has been electronically signed by: Dasha Earl MD on 05/25/2025 11:46:13 Dictated By: Dasha Earl MD Signed By: Electronically signed by Dasha Earl MD 05/25/25 1147 Reason for Exam: possible cervical fracture, trauma, pain CLINICAL HISTORY: possible cervical fracture, trauma, pain --- Additional Notes or Special Instructions: Patient had a fall with head strike and immediate neck pain Cervical MRI without contrast: Comparison: CT 05/25/2025 Findings: Paravertebral soft tissues are unremarkable. Craniocervical junction is aligned. No fractures and no subluxations. Bone marrow signal intensity and cellularity are normal. Spinal cord morphology and signal are normal. C1-C2: No malalignment. Ligaments are intact. C2-C3: No disc protrusion. No foraminal stenosis. C3-C4: There is ankylosis of the C3-4 disc space, with moderate foraminal stenosis due to uncovertebral joint and facet hypertrophy on the right. C4-C5: Uncovertebral joint and facet hypertrophy with advanced foraminal stenosis on the right and mild foraminal stenosis on the left. C5-C6: No acute disc protrusion. There is uncovertebral joint and facet hypertrophy with moderate bilateral foraminal stenosis at C5-6. C6-C7: Uncovertebral joint and facet hypertrophy with moderate bilateral foraminal stenosis. Impression: Multilevel degenerative foraminal stenosis. No signs of acute disc protrusion. No signs of compression myelopathy. The outstanding feature of this examination is advanced foraminal stenosis at C4-5 on the right. This document has been electronically signed by: Isai Mensah MD on 05/25/2025 14:21:48 Dictated By: Isai Mensah MD Signed By: Electronically signed by Isai Mensah MD 05/25/25 1423 I independently interpreted this EKG and am in agreement with the below findings: Vent. Rate: 74 BPM Atrial Rate: 74 BPM P-R Int: 200 ms QRS Dur: 88 ms QT Int: 410 ms P-R-T Axes: 45 -8 24 degrees QTcB Int: 455 ms Normal sinus rhythm Moderate voltage criteria for LVH, may be normal variant (R in aVL , [employer]) Nonspecific ST and T wave abnormality When compared with ECG of 26-May-2005 08:53, Nonspecific T wave abnormality now evident in Lateral leads DD/ 1019 Radiology Impression Discussion of test interpretation with radiology: I have reviewed the radiologist's reading. Independent Historian Clinical information obtained from an independent historian. History obtained from or confirmed by: EMS (EMS provided additional history and confirmed the history provided by the patient. ) Discharge Plan Discharge Clinical Impression: Neck pain Fall Qualifiers: Encounter type: initial encounter Qualified Code(s): W19.XXXA - Unspecified fall, initial encounter Acute knee pain Qualifiers: Laterality: left Qualified Code(s): M25.562 - Pain in left knee Patient Disposition: Home, Self-Care Instructions: Fall Prevention for Older Adults (ED) Additional Instructions: Your imaging today showed no acute fracture / bj injury. IF you are prescribed home medications and/or you are taking over the counter medications at home - it is very important you continue to do so as prescribed / directed unless told otherwise. Follow up with your primary care provider. Return to the emergency department immediately if your symptoms worsen or if you develop any numbness, tingling, dizziness, shortness of breath, difficulty breathing, chest pain, blurry vision, loss of vision, nausea, vomiting, abdominal pain, fever, chills, back pain, or any other complaints. Please see the information below about our Patient Portal. If you are not yet enrolled in the [facility] Patient Portal, you will receive an enrollment email invitation following your visit to any [facility] setting. You may also self-enroll in the Patient Portal by visiting our website: [email or web address] The following information is required to access the Patient Portal: - Your [facility] Medical Record Number - Your personal home email address (must match what is in your electronic medical record, Registration staff can assist with this) - Name - Date of Capabilities of the Patient Portal: - Message some providers - View upcoming appointments - Access your health summary, medical history, and visit history - View current conditions and allergies - View procedure and lab results - View your medications, including guidelines, side effects, and precautions - Complete pre-appointment questionnaires requested by your provider - Ready summary reports of your office visits and procedures To access the Patient Portal Mobile [employer], follow these directions: - Search [employer] in the [employer] Store or [employer] Store - Download the [employer] - Search for [facility] - Enter your login/password Prescriptions: No Action ascorbic acid (vitamin C) [Vitamin C] 1,000 mg Tablet 1,000 mg PO DAILY glucosamine sulfate [Glucosamine] 500 mg Tablet 1,000 mg PO BID Rx Instructions: administer with meals rosuvastatin 10 mg tablet 10 mg PO BEDTIME Fish Oil 500 mg Capsule 500 mg PO DAILY pantoprazole 20 mg tablet,delayed release (DR/EC) 20 mg PO DAILY Qty: 90 3RF Referrals: Brandon Granados MD [Primary Care Provider, Internal Medicine] Interventions: ED Discharge Assessment Last Done: 05/25/25 14:58 Discharge Date/Time: 05/25/25 15:01 Print Language: Bahamian
[2025-05-25 10:02] VITALS: RESP 18; TEMP 37.1; O2SAT 98; BMI 29.3
--- NOTE | 2025-05-25 10:06 | ECG_ITS ---
Test Reason : DIZZINESS Blood Pressure : */* mmHG Vent. Rate : 74 BPM Atrial Rate : 74 BPM P-R Int : 200 ms QRS Dur : 88 ms QT Int : 410 ms P-R-T Axes : 45 -8 24 degrees QTcB Int : 455 ms Normal sinus rhythm Moderate voltage criteria for LVH, may be normal variant ( R in aVL , [employer] product ) Nonspecific ST and T wave abnormality Abnormal ECG When compared with ECG of 26-May-2005 08:53, Nonspecific T wave abnormality now evident in Lateral leads Referred By: Cindy Patel Electronically Signed By: LISE RODRIGUEZ MD
[2025-05-25 10:13] VITALS: BP 187/79; PULSE 71
--- OUTSIDE RECORDS SUMMARY | 2025-05-25 10:24 | XMS_ITS | Encounter Summary ---
Author Organization [facility] Address [address] [place] [address] [place] [address] Phone Care Team Providers Care Rip Saw Operator Name Role Phone Brandon Granados MD Primary Care Provider [phone] Brandon Granados MD Unavailable [phone] Korey Coffman MD Unavailable [phone] Nj Francis MD Unavailable [phone] Joanna Duran MD Unavailable [phone] Brandon Granados MD Unavailable [phone] Heaven Tamayo RN Unavailable [phone] Encounter Details Date Type Department Care Team (Late st Contact Info) Description 02/11/2022 Procedure Pass [facility], [address] [address] Social History Tobacco Use Types Packs/Day Years Used Date Smoking Tobacco: Never Smokeless Tobacco: Never Alcohol Use Standard Drinks/Week Comments Not Currently 0 (1 standard drink = 0.6 oz pur e alcohol) once to twice a year, rare Comments No Sex and Gender Information Value [...] Office Visit [facility] [place] [facility] [address] [place], [place] [phone] Brandon Granados MD [address] [place] [address] 03/07/2026 9:10 AM EDT Office Visit [facility] [address] [place] [address] Henry Dias DO [address] [place] [address] documented as of this encounter Visit Diagnoses Not on filedocumented in this encounter Additional Health Concerns Assessment Noted Time PHQ-2 Depression Total Score: 0 05/07/20 10:03 AM EDT documented as of this encounter Care Teams Rip Saw Operator Relationship Specialty Start Date End Date Brandon Granados MD [address] [place] [address] PCP - General Internal Medicine 09/11/20 Brandon Granados MD [address] [place] [address] Insurance Assigned Provider 11/22/20 08/21/22 oKrey Coffman MD [address] [address] Cardiology 03/13/21 Nj Francis MD [address] [address] Urology 02/16/22 Joanna Duran MD [address] [place] [address] Drive [address] [place] [address] Obstetrics and Gynecology 02/16/22 Brandon Granados MD [address] [place] [address] [email or web address] Insurance Assigned Provider 12/24/23 Heaven Tamayo, RN [address] [place] [address] [email or web address] [facility] Top Frame Fitter 03/12/24 04/03/24 documented as of this encounter Additional Source Comments The information contained in this document represents components of the legal health record. It is not the complete legal health record.[facility]
--- OUTSIDE RECORDS SUMMARY | 2025-05-25 10:24 | XMS_ITS | Encounter Summary ---
Author Organization [facility] Address [address] [place] [address] [place] [address] Phone Care Team Providers Care Lace Machine Operator Name Role Phone Brandon Granados MD Primary Care Provider [phone] rBandon Granados MD Unavailable [phone] Korey Coffman MD Unavailable [phone] Nj Francis MD Unavailable [phone] Joanna Duran MD Unavailable [phone] Brandon Granados MD Unavailable [phone] Heaven Tamayo RN Unavailable [phone] Encounter Details Date Type Department Care Team (Late st Contact Info) Description 02/03/2022 Procedure Pass [facility], Ct Scan - [address] [address] Social History Tobacco Use Types Packs/Day Years [...] Description 06/05/2025 8:30 AM EDT Office Visit [facility] [place] [facility] [address] [place], [place] [phone] Brandon Granados MD [address] [place] [address] 03/07/2026 9:10 AM EDT Office Visit [facility] [address] [place] [address] Henry Dias DO [address] [place], [place] [phone] documented as of this encounter Visit Diagnoses Not on filedocumented in this encounter Additional Health Concerns Assessment Noted Time PHQ-2 Depression Total Score: 0 05/07/20 10:03 AM EDT documented as of this encounter Care Teams Lace Machine Operator Relationship Specialty Start Date End Date Brandon Granados MD [address] [place] [address] PCP - General Internal Medicine 09/11/20 Brandon Granados MD [address] [place] [address] Insurance Assigned Provider 11/22/20 08/21/22 Korey Coffman MD [address] [place] [address] [place] [address] Cardiology 03/13/21 Nj Francis MD [address] [place] [address] [place] [address] Urology 02/16/22 Joanna Duran MD [address] [place] [address] Drive [address] [place] [address] Obstetrics and Gynecology 02/16/22 Brandon Granados MD [address] [place] [address] [email or web address] Insurance Assigned Provider 12/24/23 Heaven Tamayo, RN [address] [place] [address] [email or web address] [facility] Manufacturing [employer] 03/12/24 04/03/24 documented as of this encounter Additional Source Comments The information contained in this document represents components of the legal health record. It is not the complete legal health record.[facility]
--- OUTSIDE RECORDS SUMMARY | 2025-05-25 10:24 | XMS_ITS | Encounter Summary ---
Author Organization Located Within [facility] Address [address] [facility] [address] [place] [address] Phone Care Team Providers Care Net Programmer Analyst Name Role Phone Brandon Granados MD Primary Care Provider [phone] Brandon Granados MD Unavailable [phone] Korey Coffman MD Unavailable [phone] Nj Francis MD Unavailable [phone] Joanna Duran MD Unavailable [phone] Brandon Granados MD Unavailable [phone] Heaven Tamayo RN Unavailable [phone] Reason for Referral * MRI/CAT Scan - Closed Specialty Diagnoses / Procedures Referred By Contkarson t Referred To Contact Radiology Diagnoses Other specified disorders of kidney and ureter Procedures MRI Abdomen Bozena Haines MD Phone: tel: fax: Referral ID Status Reason Start Date Expiration Date Visits Re quested Visits Authorized [id number] Closed 08/18/2022 08/18/2023 1 1 Encounter Details Date Type Department Care Team (Late st Contact Info) Description 08/18/2022 Transcribe Orders Virtual Department [address] [place], [place] [id number] Bozena Haines MD [address] [place] [address] [place] [address] Other specified disorders of kidney and ureter (Primary Dx) Social History Tobacco Use Types Packs/Day Years [...] Description 06/05/2025 8:30 AM EDT Office Visit [facility] Internal Medicine [address] [place] [address] Brandon Granados MD [address] [place] [address] 03/07/2026 9:10 AM EDT Office Visit [facility] [address] [place] [phone] Henry Dias DO [address] [place] [address] documented as of this encounter Results * MRI ABDOMEN (KIDNEYS) WITH AND WITHOUT CONTRAST (08/30/2022 1:30 PM EST) Anatomical Region Laterality Modality Abdomen Magnetic Resonan ce 08/31/2022 5:50 PM EST Impressions 09/01/2022 7:53 PM EST 1. Similar 1.7 cm right midpole renal mass, most likely renal cell carcinoma. 2. No evidence of abdominal metastasis. Narrative 09/01/2022 7:53 PM EST MRI ABDOMEN (KIDNEYS) WITH AND WITHOUT CONTRAST TECHNIQUE: Multiplanar MR imaging of the abdomen was performed using T1, T2, fat saturated, and diffusion weighted techniques. Dynamic multiphase imaging was also performed after administration of an intravenous gadolinium contrast agent. COMPARISON: MR abdomen 03/05/2022. FINDINGS: Lower Chest: Normal. No effusions. Liver: Multiple scattered hepatic cysts are noted. No suspicious focal lesions. Biliary: Normal. No biliary ductal dilatation. Spleen: Normal. No splenomegaly or focal lesions. Pancreas: Normal. No masses or ductal dilatation. Adrenal Glands: Normal. No nodules. Kidneys/Ureters: No hydronephrosis. Multiple bilateral renal cysts are seen, a few of which are hemorrhagic, measuring up to 2 cm on the right and 1.8 cm on the left. Similar 1.7 x 1.2 cm T2 hyperintense, mildly enhancing right midpole renal mass of (8:47). No enhancing solid lesions are seen in the left kidney. Bowel: Normal. No dilatation or wall thickening. Peritoneum/Retroperitoneum: Normal. No masses or fluid. Lymph Nodes: Normal. No lymphadenopathy. Vessels: Normal. No abdominal aortic aneurysm. Bones/Soft Tissues: Scoliosis and chronic degenerative changes. No focal marrow replacing lesions. Bilateral hip arthroplasty. Other: Similar partially imaged left adnexal cyst measuring at least 3.7 cm (11:5), almost certainly benign. Procedure Note Ganesh Holman MD - 09/01/2022 MRI ABDOMEN (KIDNEYS) WITH AND WITHOUT CONTRAST TECHNIQUE: Multiplanar MR imaging of the abdomen was performed using T1,T2, fat saturated, and diffusion weighted techniques. Dynamic multiphaseimaging was also performed after administration of an intravenousgadolinium contrast agent. COMPARISON: MR abdomen 03/05/2022. FINDINGS: Lower Chest: Normal. No effusions. Liver: Multiple scattered hepatic cysts are noted. No suspicious focallesions. Biliary: Normal. No biliary ductal dilatation. Spleen: Normal. No splenomegaly or focal lesions. Pancreas: Normal. No masses or ductal dilatation. Adrenal Glands: Normal. No nodules. Kidneys/Ureters: No hydronephrosis. Multiple bilateral renal cysts areseen, a few of which are hemorrhagic, measuring up to 2 cm on the rightand 1.8 cm on the left. Similar 1.7 x 1.2 cm T2 hyperintense, mildly enhancing right midpole renalmass of (8:47). No enhancing solid lesions are seen in the left kidney. Bowel: Normal. No dilatation or wall thickening. Peritoneum/Retroperitoneum: Normal. No masses or fluid. Lymph Nodes: Normal. No lymphadenopathy. Vessels: Normal. No abdominal aortic aneurysm. Bones/Soft Tissues: Scoliosis and chronic degenerative changes. No focalmarrow replacing lesions. Bilateral hip arthroplasty. Other: Similar partially imaged left adnexal cyst measuring at least 3.7cm (11:5), almost certainly benign. IMPRESSION: 1. Similar 1.7 cm right midpole renal mass, most likely renal cellcarcinoma. 2. No evidence of abdominal metastasis. us Bozena Haines MD IMG MR ABDOMEN Final Res ult documented in this encounter Visit Diagnoses Diagnosis Other specified disorders of kidney and ureter- Primary Other specified disorders of kidney and ureter documented in this encounter Additional Health Concerns Assessment Noted Time PHQ-2 Depression Total Score: 0 06/25/20 22 2:14 PM EST documented as of this encounter Care Teams Net Programmer Analyst Relationship Specialty Start Date End Date Brandon Granados MD [address] [place] [address] [email or web address] PCP - General Internal Medicine 09/11/20 Brandon Granados MD [address] [place] [address] [email or web address] Insurance Assigned Provider 11/22/20 08/21/22 Korey Coffman MD [address] [place] [address] Cardiology 03/13/21 Nj Francis MD [address] [place] [address] Urology 02/16/22 Joanna Duran MD [address] [place] [address] Drive [address] [place] [address] Obstetrics and Gynecology 02/16/22 Brandon Granados MD [address] [place] [address] [email or web address] Insurance Assigned Provider 12/24/23 Heaven Tamayo, RN [address] [place] [address] [email or web address] [facility] O[facility] Equipment Technician 03/12/24 04/03/24 documented as of this encounter Additional Source Comments The information contained in this document represents components of the legal health record. It is not the complete legal health record.Located Within [facility]
--- OUTSIDE RECORDS SUMMARY | 2025-05-25 10:24 | XMS_ITS | Encounter Summary ---
Author Organization [facility] Address [address] [place] [address] [place] [address] Phone Care Team Providers Care Human Relations Professor Name Role Phone Brandon Granados MD Primary Care Provider [phone] Brandon Granados MD Unavailable [phone] Korey Coffman MD Unavailable [phone] Nj Francis MD Unavailable [phone] Joanna Duran MD Unavailable [phone] Brandon Granados MD Unavailable [phone] Heaven Tamayo RN Unavailable [phone] Encounter Details Date Type Department Care Team (Late st Contact Info) Description 08/18/2022 Procedure Pass [facility], [address] [address] Social History Tobacco Use Types Packs/Day Years [...] Description 06/05/2025 8:30 AM EDT Office Visit [facility] [place] Internal Medicine [address] [place], [place] [phone] Brandon Granados MD [address] [place] [address] 03/07/2026 9:10 AM EDT Office Visit [facility] [address] [place] [address] Henry Dias DO [address] [place] [address] documented as of this encounter Visit Diagnoses Not on filedocumented in this encounter Additional Health Concerns Assessment Noted Time PHQ-2 Depression Total Score: 0 06/25/20 22 2:14 PM EST documented as of this encounter Care Teams Human Relations Professor Relationship Specialty Start Date End Date Brandon Granados MD [address] [place] [address] PCP - General Internal Medicine 09/11/20 Brandon Granados MD [address] [place] [address] Insurance Assigned Provider 11/22/20 08/21/22 Korey Coffman MD [address] [address] Cardiology 03/13/21 Nj Francis MD [address] [address] Urology 02/16/22 Joanna Duran MD [address] [place] [address] Drive [address] [place] [address] Obstetrics and Gynecology 02/16/22 Brandon Granados MD [address] [place] [phone] [email or web address] Insurance Assigned Provider 12/24/23 Heaven Tamayo, RN [address] [place] [phone] [email or web address] [facility] Manager Business Process 03/12/24 04/03/24 documented as of this encounter Additional Source Comments The information contained in this document represents components of the legal health record. It is not the complete legal health record.[facility]
--- OUTSIDE RECORDS SUMMARY | 2025-05-25 10:25 | XMS_ITS | Clinical Summary ---
Author Organization [facility] Address [address] [facility] [address] [place] [phone] Phone Care Team Providers Care Assistant Statistician Name Role Phone Brandon Granados MD Primary Care Provider [phone] Korey Coffman MD Unavailable [phone] Nj Francis MD Unavailable [phone] Joanna Duran MD Unavailable [phone] Brandon Granados MD Unavailable [phone] Allergies Active Allergy Reactions Criticality Noted Date Comments Adhesive 08/22/2019 welts Adhesive Tape-Silicones Rash Low 12/03/2015 Bacitracin 02/12/2025 Sulfamethoxazole-Trimetho prim 08/22/2019 Turned yellow Other Itching,Swelling 11/16/2024 Allergic to Rachael Silver Sulfadiazine 08/22/2019 welts Trimethoprim 12/03/2015 Other reaction(s): Jaundice Medications ascorbic acid, vitamin C, (VITAMIN C) 500 MG tablet Take 500 mg by mouth 2 (two) times a day. Active cholecalciferol (VITAMIN D3) 2,000 unit tablet Take 2,000 Units by mouth daily. Up to four times weekly Active cranberry fruit 400 mg Tab Take 400 mg by mouth every morning. Active glucosamine sulfate dipot chlr (GLUCOSAMINE SULFATE DIPOTASSIUM CHLORIDE) 1,000 mg Cap capsule Take 1,500 mg by mouth 2 (two) times a day. Active coenzyme Q10 300 mg Cap Take 1 capsule by mouth every morning. Active Ca/D3/mag ox/zinc/coppersmith apprentice/kayleen/bor (CALCIUM 600-D3 PLUS, MAG-ZINC, ORAL) Take 1 tablet by mouth in the morning. Active TURMERIC ORAL Take 500 mg by mouth 2 (two) times a day. Active zoledronic acid/mannitol-water (RECLAST IV) Inject 5 mg into the vein Once a year. Last Reclast IV 08/2022 021 Active fluticasone propionate (FLONASE) 50 mcg/actuation nasal sprayIndications:Allerg ic rhinitis, unspecified seasonality, unspecified trigger 2 sprays by Nasal route daily. PRN 15.8 mL 3 022 Active Additional Information Patient taking differently:2 spray NasalAs needed, allergies, mostly during Spring and late Fall, (No instructions reported), Reported on 03/08/2025 blood pressure monitor KitIndications:Essentia l hypertension 1 Units by Miscellaneous route daily. 1 kit 023 Active docosahexaenoic acid/epa (FISH OIL ORAL) Take 1 capsule by mouth daily. Active pantoprazole (PROTONIX) 20 MG tablet Take 20 mg by mouth daily. 024 Active amoxicillin (AMOXIL) 500 MG capsule 30 mins prior to dental procedure 024 Active rosuvastatin (CRESTOR) 10 MG tabletIndications:Pure hypercholesterolemia TAKE 1 TABLET BY MOUTH DAILY 90 tablet 3 025 Active CALCIUM ORAL Take by mouth. Ac tive MAGNESIUM ORAL Take by mouth. Active Active Problems Problem Noted Date Diagnosed Date Left foot pain 02/12/2025 Assessment & Plan (02/12/2025 8:30 AM EDT): Patient elicited a mechanical fall 2 weeks ago leading to total body strain and tenderness, with specific focus to her right hip with a negative x-ray. Approximately 1 week after her fall, she began experiencing left foot pain at the ball of her foot. On examination today there was a 1 cm palpable nodule in the ball of her left foot alongside the second metatarsal with tenderness to palpation, nonmobile. Discussed obtaining an x-ray to rule out any underlying fractures, ordered. Patient advised to monitor her symptoms closely and apply ice to reduce inflammation and swelling. Discussed pain management including Tylenol/ibuprofen, patient states that she likes to avoid medication. Elevated blood pressure read ing without diagnosis of hypertension 12/23/2023 Primary osteoarthritis of right knee 06/05/2021 Primary osteoarthritis of left knee 06/05/2021 Status post left hip replacement 06/05/2021 Status post right hip replacement 06/05/2021 Displacement of internal right hip prosthesis Benign essential hypertension 08/22/2019 Dyslipidemia 08/22/2019 Gastroesophageal reflux disease 08/22/2019 Graves disease 08/22/2019 Ovarian cyst 08/22/2019 Overview (08/22/2019): No surgery Osteoporosis 08/22/2019 Assessment & Plan (03/08/2025 9:54 AM EDT): She has been on drug holiday for 2 years. Her bone mineral density has remained stable. She did have a fall and is having pain in the left hip. Technically she can remain on drug holidays because her bone mineral density is stable but if she did fracture of the left hip then I will recommend resuming antiresorptive medications. So I gave her a choice whether she wants to resume antiresorptive medication or remain on drug holiday. She prefers to resume on zoledronic acid. She did inquire about potential adverse effects and there is no new adverse effects compared to when she took the medication in the past. So she has used this medication in the past and tolerated it so I do not see why she would not tolerate it now. I did inform her that the infusion will be for another 3 years on a yearly basis. DXA scan should be repeated by 02/18/2027. I will request bone turnover markers for the follow-up visit in 1 year and reminded her that she needs to do this 2 weeks prior to the visit. They will not do this early they will do it only 2 weeks prior to the visit. Assessment & Plan (02/15/2024 10:16 AM EDT): The patient continues on calcium, vitamin D supplements. Presently off antiresorptive medications after her last infusions of zoledronic acid on 08/08/2023. Most recent DXA scan on 02/16/2023 showed 5.9% increase in bone mineral density of the spine and 2.5% increase of the forearm. Hips not measured. I requested DXA scan to be done by 02/16/2025 at [facility]. She should follow-up within 1 year. I advised her to try to do the lab work that she did not do this year which was requested last year. I will request the same lab work for the follow-up visit in 1 year. Assessment & Plan (02/28/2023 11:05 AM EDT): Lab work shows that she has elevated N-telopeptide. This is a marker of increased bone resorption but this was done right before she received her third infusion of zoledronic acid. She continues with calcium and vitamin D supplements. At this point the patient could potentially be off medications for osteoporosis. The benefit of zoledronic acid can be 1 to 3 years. The question is what medication will she use in the future for management of osteoporosis. She has already used Prolia a total of 10 injections. She could always resume Prolia if she likes. Then of course is antibiotic hormone such as Forteo and Tymlos which potentially we can use in the future. We do not have to make this decision now. The patient will return for follow-up in 1 year. I did not get the patient's DXA scan report. She does not need an additional visit just to review this report. I can inform her of this over the phone or through the patient portal if she has it. Assessment & Plan (06/22/2022 11:20 AM EST): The patient has received a total of 10 Prolia injection. She has received 2-week last administration. She has been scheduled for the third week last administration on July 20, 2022. Unfortunately this does not show up on my note but it has been done I also given her an ambulatory referral to the infusion center for administration. I explained to the patient that she must do a basic metabolic panel vitamin D level 15 days or within 15 days prior to the infusion at a [facility] facility. She is due for repeat DXA scan on February 11, 2023 and she should have this done at the [facility] at [facility] so that we can see any changes that have occurred since her last DXA scan. I asked her to please make sure that we have the DXA scan report on hand before her follow-up visit in mid February 2023. I also informed the patient that this is the final read class administration because we normally do this up to 3 years. Assessment & Plan (06/22/2021 4:24 PM EST): The patient has multiple risk factors for osteoporosis including age, menopause, family history, Graves' disease, use of proton pump inhibitors for 1 year and most recently one intra-articular corticosteroid injection. She has had multiple fractures she has had at least 1.5 inch decrease in height. She appears to be getting adequate calcium and vitamin D supplementation. She received a total of 10 Prolia injections. She received Reclast once the first on November 2019 she was due for her second Reclast in November 2020 but this never happened. At this point will continue with the medical management that was instituted at [facility] and recommend Reclast administration. She is not due for repeat DXA scan until 02/11/2023 but I suggest that she start doing DXA scans at [facility] since he is transitioning her care to this organization. Vitamin D deficiency 08/22/2019 Scoliosis Encounters Date Type Department Care Team Description 03/11/2025 8:41 AM EDT - 03/11/2025 11:59 PM EDT Hospital Encounter [facility], X-Ray - [place] [place] [address] Benji South MD Discharge Disposition: Home or Self Care 03/11/2025 8:41 AM EDT Hospital Encounter [facility] Laboratory [address] [place] [address] [place] [address] Henry Dias DO Discharge Disposition: Home or Self Care 03/11/2025 Telephone [facility] Internal Medicine [address] [place] [address] Swati Mandujano RN Results 03/08/2025 9:10 AM EDT Office Visit [facility] [place] [address] Henry Dias DO Age-related osteoporosis without current pathological fracture (Primary Dx) 03/08/2025 Orders Only [facility] [address] [place] [address] [place] [address] Provider, MD Marilyn from Last 3 Months Immunizations Immunization Administration Dates Next Due COVID-19 (Pre-06/06) Moderna Vaccine, mRNA, PF 09/05/2021,01/05/2021,12/08/2020 Cholera, unspecified formulation 08/25/1978 Hepatitis A, Adult 05/30/1999,07/20/1998 INFLUENZA, SPLIT VIRUS, TRIV ALENT W/ PRESERVATIVE IM 05/29/2014 Influenza High-Dose Quadriva lent Preservative Free IM 05/12/2023,06/11/2022,07/17/2021,06/18 Influenza High-Dose Trivalen t Preservative Free IM 04/27/2024,06/10/2019,05/30/2018,05/09,05/28/2015 Influenza Quadrivalent Prese rvative Free IM 05/09/2017,10/13/2015,05/12/2013,05/10 Influenza Quadrivalent w/ Pr eservative IM 05/30/2018,05/14/2013,04/10/2012 Influenza, Unspecified Formulation 06/15/2015 Influenza, whole 05/30/1998,06/22/1997, 6 MMR 07/08/1998 PPD Test 02/22/1998 Pneumococcal conjugate PCV13 10/13/2015 Pneumococcal polysaccharide PPSV23 01/29/2020, Polio - OPV 08/22/1978 Td (adult),2 Lf Tetanus Toxo id, PF, Adsorbed 05/30/1999,03/27/1989 Td, unspecified formulation 02/22/1998 Tdap 12/04/2015,08/15/2009 Typhoid,parenteral, AKD (US ) 08/15/1985 Yellow Fever 08/24/1978 Zoster recombinant 09/06/2020,07/02/2020 Family History Medical History Relation Comments Coronary artery disease Father Heart attack Father Hypertension Father Lipoma Father Arrhythmia Mother Coronary artery disease Mother Diabetes mellitus Mother Goiter Mother Coronary artery disease Sister 2 Diabetes Sister 2 Heart attack Sister 2 Obesity Sister 2 Relation Status Comments Father Mother h/o blood clots in legs Sister 1 Alive had quadruple by passBlood clots in lungs and in leg Sister 2 Alive stents in placed Social History Tobacco Use Types Packs/Day Years Used Date Smoking Tobacco: Never Smokeless Tobacco: Never Tobacco Cessation:Counseling Given: Not Answered Alcohol Use Standard Drinks/Week Comments Yes 0 [...] file Not on file Not on file Last Filed Vital Signs Vital Sign Reading Time Taken Comments Blood Pressure 124/70 03/08/2025 9:09 AM EDT Pulse 70 03/08/2025 9:09 AM EDT Temperature 36.6 C (97.9 F) 11/16/2024 4:00 PM EDT Respiratory Rate 20 02/12/2025 7:57 AM EDT Oxygen Saturation 98% 03/08/2025 9:09 AM EDT Inhaled Oxygen Concentration - - Weight 70.8 kg (156 lb) 03/08/2025 9:09 AM EDT Height 155.7 cm (5' 1.3 ) 03/08/2025 9:09 AM EDT Body Mass Index 29.19 03/08/2025 9:09 AM EDT Plan of Treatment Upcoming Encounters Date Type Department Care Team (Late st Contact Info) Description 06/05/2025 8:30 AM EDT Office Visit [facility] [address] [place], [place] [id number] Brandon Granados MD [address] [place] [address] 03/07/2026 9:10 AM EDT Office Visit [facility] [address] [place] [address] Henry Dias DO [address] [place], [place] [id number] [email or web address] Health Maintenance Due Date Last Done Comments RSV VACCINE (1 - 1-dose 75+ series) 01/05/2023 INFLUENZA VACCINE (#1) 2025 , 05/12/2023, 06/11/2022, Additional history exists COVID-19 VACCINE (2024- season) 2025 09/05/2021, 01/05/2021, 12/08/2020 BLOOD PRESSURE 09/08/2025 03/08/2025 DEPRESSION SCREENING 11/06/2025 11/06/2024 Adult Td,Tdap Booster 12/03/2025 12/04/2015 , 08/15/2009, 05/30/1999, Additional history exists LIPID PANEL 10/05/2029 10/05/2024, 03/0 01/2024, 12/24/2022, Additional history exists HEPATITIS A VACCINES Aged Out 05/30/1999, 07/20/19 98 No longer eligible based on patient's age to complete this topic HEPATITIS C SCREENING Completed 04/19/2018, 018 PNEUMOCOCCAL VACCINES (50+ years) Completed 01/29/2020, 10/13/2015, 08/15/1999 ZOSTER VACCINES Completed 09/06/2020, 07/02/2020 SMOKING STATUS SCREENING (Once After 26 Yrs) Completed 11/16/2024 OSTEOPOROSIS SCREENING INITIAL (ONE-TIME) Completed 02/18/2025, 02/15/2024, 02/16/2023, Additional history exists HIB VACCINES Aged Out No longer eligi ble based on patient's age to complete this topic MENINGOCOCCAL VACCINES (ACWY) Aged Out No longer eligible based on patient's age to complete this topic MENINGOCOCCAL VACCINES (B) Aged Out N o longer eligible based on patient's age to complete this topic Medical Devices Not on file Procedures Procedure Name Priority Date/Time Associated Diagnosis Comments COLLAGEN TYPE 1B-TELOPEPTIDE, BLOOD Routine 03/11/2025 9:10 AM EDT Age-related osteoporosis without current pathological fracture COMPREHENSIVE METABOLIC PANEL Routine 03/11/2025 9:10 AM EDT Age-related osteoporosis without current pathological fracture XR PELVIS 1-2 VIEW Routine 03/11/2025 8: 56 AM EDT Fall, initial encounter HM DEXA SCAN Routine 02/18/2025 9:44 AM EDT LIPID PANEL Routine 10/05/2024 10:40 AM EST Elevated blood pressure reading without diagnosis of hypertension Pure hypercholesterolemia OUTSIDE HEPATITIS C VIRUS SCREENING Routine 04/19/2018 from Last 3 Months or Most Recently Relevant to Health Maintenance Results * Collagen type 1b-telopeptide, blood (03/11/2025 9:10 AM EDT) Collagen CTx 202 pg/mL [facility] Comment: (NOTE) REFERENCE VALUE 148-967 (18-29 y) 150-635 (30-39 y) 131-670 (40-49 y) 183-1060 (50-59 y) 171-970 (60-69 y) 152-858 (>70 y) 136-689 (Premenopausal) 177-1015 (Postmenopausal) Flagging is based on the age-specific reference interval and not menopausal status. Blood 03/11/2025 9:10 AM EDT 03/11/2025 9:14 AM EDT us Henry Dias LAB BLOOD ORDERABLES Final [facility]ul [facility] [address] [place] [address] * (ABNORMAL) Comprehensive metabolic panel (03/11/2025 9:10 AM EDT) SODIUM 141 133 - 146 mmol/L [facility] POTASSIUM 4.4 3.3 - 5.1 mmol/L [facility] CHLORIDE 103 96 - 108 mmol/L [facility] CO2 25 21 - 35 mmol/L [facility] BUN 19 6 - 19 mg/dL [facility] CREATININE 0.70 0.5 - 1.5 mg/dL [facility] GLUCOSE 100(H) 70 - 99 mg/dL [facility] ALBUMIN 4.4 3.9 - 4.8 g/dL [facility] TOTAL PROTEIN 7.1 6.5 - 8.0 g/dL [facility] CALCIUM 9.6 8.4 - 10.3 mg/dL [facility] ALKALINE PHOSPHATASE 71 39 - 117 U/L [facility] TOTAL BILIRUBIN 0.4 0.0 - 1.2 mg/dL [facility] AST 23 0 - 37 U/L [facility] ALT 12 0 - 40 U/L [facility] GLOBULIN 2.7 1 - 4.8 g/dL [facility] EGFR 89 >59 mL/min/1.7 3m2 [facility] Comment:Estimated glomerular filtration rate calculated using the CKD-EPI refit equation. ANION GAP 17 10 - 20 mmol/L [facility] Blood 03/11/2025 9:10 AM EDT 03/11/2025 9:14 AM EDT us Henry Dias DO LAB BLOOD ORDERABLES Final Resul t [facility] [address] [place] [address] * XR PELVIS 1-2 VIEW (03/11/2025 8:56 AM EDT) Anatomical Region Laterality Modality Pelvis Computed Radiogr aphy 03/11/2025 1:07 PM EDT Impressions 03/11/2025 1:08 PM EDT FINDINGS/IMPRESSION: There are partially visualized sequela of bilateral total hip arthroplasty, similar to prior imaging. There is no evidence of acute fracture or malalignment within the limitation of this single AP view of the pelvis. There is mild degenerative change of the sacroiliac joints. The symphysis pubis is congruent. There is incompletely evaluated degenerative change of the lower lumbar spine. Narrative 03/11/2025 1:08 PM EDT XR PELVIS 1-2 VIEW 03/11/2025 8:41 AM Referring clinician's provided indication for this examination in [facility]: S/P Fall COMPARISON: Pelvis/right hip radiographs 02/07/2025 Procedure Note Patience Pascal MD - 03/11/2025 XR PELVIS 1-2 VIEW 03/11/2025 8:41 AM Referring clinician's provided indication for this examination in [facility]:S/P Fall COMPARISON: Pelvis/right hip radiographs 02/07/2025 IMPRESSION: FINDINGS/IMPRESSION: There are partially visualized sequela of bilateral total hiparthroplasty, similar to prior imaging. There is no evidence of acutefracture or malalignment within the limitation of this single AP view ofthe pelvis. There is mild degenerative change of the sacroiliac joints.The symphysis pubis is congruent. There is incompletely evaluateddegenerative change of the lower lumbar spine. Benji South MD IMG XR PELVIS Final Result * HM DEXA SCAN (02/18/2025 9:44 AM EDT) Historical Provider HEALTH MAINTENANCE Final Result * (ABNORMAL) Lipid panel (10/05/2024 10:40 AM EST) HDL 77 mg/dL [facility] Comment: Interpretation <40 mg/dL: Low HDL cholesterol (major risk factor for CHD) Greater than or equal to 60 mg/dL: High HDL cholesterol ( negative risk factor for CHD) HDL - cholesterol is affected by a number of factors, e.g. smoking, excerise, hormones, sex and age. CHOLESTEROL 278(H) 0 - 240 mg/dL [facility] TRIGLYCERIDES 126 30 - 160 mg/dL [facility] LDL 176(H) 50 - 129 mg/dL [facility] Comment: LDL levels in terms of risk for coronary heart disease: <100 mg/dL: Optimal 100-129 mg/dL: Near or above optimal 130-159 mg/dL: Borderline high 160-189 mg/dL: High >190 mg/dL: Very High CARDIAC RISK RATIO 3.6 3.3 - 4.4 C [facility] Blood 10/05/2024 10:4 0 AM EST 10/05/2024 10:42 AM EST Brandon Granados MD LAB BLOOD ORDERABLES Final [facility] Organization Address City/State/ZIP Co de Phone Number [facility] [address] [place] [address] * Outside Hepatitis C Virus Screening (04/19/2018) Hepatitis C Screening - External Neg Historical Provider LAB BLOOD ORDERABLES Virginie l Result from Last 3 Months or Most Recently Relevant to Health Maintenance Insurance [employer] MEDICARE SUPPLEMENT MEDICARE PART A & B [employer] MEDICARE SUPPLEMENT MEDICARE PART A & B FOR [employer] MEDICARE SUPPLEMENT [facility] MEDICARE SUPPLEMENT [facility] MEDICARE SUPPLEMENT MEDICARE PART A & B FOR LIFE MEDICARE SUPPLEMENT FOR LIFE MEDICARE SUPPLEMENT MEDICARE PART A & B FOR LIFE MEDICARE SUPPLEMENT MEDICARE PART A & B FOR LIFE MEDICARE SUPPLEMENT MEDICARE PART A & B Care Teams Assistant Statistician Relationship Specialty Start Date End Date Brandon Granados MD [address] [place] [phone] [email or web address] PCP - General Internal Medicine 09/11/20 Korey Coffman MD [address] [address] Cardiology 03/13/21 Nj Francis MD [address] [address] [email or web address] Urology 02/16/22 Joanna Duran MD [address] [place] [address] [place] [phone] Obstetrics and Gynecology 02/16/22 Brandon Granados MD [address] [place] [phone] [email or web address] Insurance Assigned Provider 12/24/23 Additional Source Comments The information contained in this document represents components of the legal health record. It is not the complete legal health record.[facility]
--- OUTSIDE RECORDS SUMMARY | 2025-05-25 10:25 | XMS_ITS | Encounter Summary ---
Author Organization [facility] Address [address] [place] [address] [place] [address] Phone Care Team Providers Care Base Draw Operator Name Role Phone Brandon Granados MD Primary Care Provider [phone] Korey Coffman MD Unavailable [phone] Nj Francis MD Unavailable Joanna Duran MD Unavailable [phone] Brandon Granados MD Unavailable [phone] Heaven Tamayo RN Unavailable [phone] Reason for Referral * MRI/CAT Scan - Closed Specialty Diagnoses / Procedures Referred By Lulu gamboa Referred To Contact Radiology Diagnoses Malignant neoplasm of kidney excluding renal pelvis, unspecified laterality Procedures CT Abdomen/Pelvis Anne Oswald NP Phone: tel: fax: Referral ID Status Reason Start Date Expiration Date Visits Re quested Visits Authorized [id number] Closed 09/19/2023 1 1 * MRI/CAT Scan - Closed Specialty Diagnoses / Procedures Referred By Lulu gamboa Referred To Contact Radiology Diagnoses Malignant neoplasm of kidney excluding renal pelvis, unspecified laterality Procedures CT Chest Anne Oswald NP Phone: tel: fax: Referral ID Status Reason Start Date Expiration Date Visits Re quested Visits Authorized [id number] Closed 09/19/2023 1 1 Encounter Details Date Type Department Care Team ([facility] Contact Info) Description 09/19/2023 Transcribe Orders Virtual Department [address] [place] [address] Anne Oswald NP [address] [place] [address] [place] [address] Malignant neoplasm of kidney excluding renal pelvis, unspecified laterality (Primary Dx) Social History Tobacco Use Types [...] with a working camera? Not on file Comments No Sex and Gender Information Value [...] Upcoming Encounters Date Type Department Care Team ([facility] Contact Info) Description 06/05/2025 8:30 AM EDT Office Visit [facility] [place] [facility] [address] [place] [address] Brandon Granados MD [address] [place] [address] 03/07/2026 9:10 AM EDT Office Visit [facility] [address] [place] [address] Henry Dias, [address] [place] [phone] [email or web address] documented as of this encounter Results * CT ABDOMEN/PELVIS (RENAL MASS) WITH AND WITHOUT CONTRAST (11/02/2023 10:43 AM EDT) Anatomical Region Laterality Modality Abdomen, Pelvis Computed Tomogra phy 11/03/2023 2:48 PM EDT Impressions 11/03/2023 6:27 PM EDT Reported interval right interpolar renal cryoablation, without evidence of residual/recurrent disease. No findings suspicious for metastatic disease in the chest, abdomen, or pelvis. Narrative 11/03/2023 6:[address] CHEST WITH CONTRAST, CT ABDOMEN/PELVIS (RENAL MASS) WITH AND WITHOUT CONTRAST Referring clinician's provided indication for this examination in Epic: Outside Radiology Order; MALIGNANT NEOPLASM KIDNEY, EXCEPT RENAL PELVIS TECHNIQUE: Multidetector CT of the chest was performed with intravenous contrast using tailored dose modulation techniques. COMPARISON: MRI ABDOMEN (KIDNEYS) WITH AND WITHOUT CONTRAST THORACIC FINDINGS: Devices/Tubes/Lines: None. Lungs: Central airways are patent. Mild diffuse bronchial wall thickening. Subsegmental atelectasis at the posterior lower lobes, inferior lingular, and inferior right middle lobe. 2-3 mm left upper triangular yoni-fissural nodules, likely intrapulmonary lymph nodes (4:63). No suspicious nodule. No consolidation. Pleura: No effusion or pneumothorax. Mediastinum: Ill-defined hypoattenuating left thyroid nodules measuring up to approximately 1.6 cm. Cardiac chambers are within normal limits for size. Mild coronary artery calcification. Lymph Nodes: No abnormally enlarged lymph nodes. Chest Wall: No chest wall mass. Bones: No destructive osseous lesion. Degenerative changes. Similar mild anterior wedging of multiple enhancing vertebral bodies and less than 50% height loss of T12 superior endplate. ABDOMINAL FINDINGS: Liver: No suspicious focal lesion. Scattered cysts. Biliary: No bile duct dilation. Noninflamed gallbladder. Spleen: No splenomegaly or suspicious focal lesion. Pancreas: No mass or main duct dilation. Adrenal Glands: No nodule. Kidneys/Ureters: Punctate nonobstructing left renal calyceal stones. Reported interval right renal cryoablation. Expected decrease in soft tissue attenuation at the interpolar kidney where there was previously an enhancing mass. No suspicious enhancement within limits of CT technique. No new renal mass. Bilateral cortical cysts. No hydronephrosis. Pelvic Organs/Bladder: Partially obscured by streak artifact from bilateral hip prostheses. No focal bladder wall thickening identified. 3.7 cm thin-walled water attenuation left ovarian cyst. Bowel: No abnormal wall thickening or distension. Noninflamed colonic diverticula. Noninflamed appendix. Peritoneum/Retroperitoneum: No free fluid, free air, or mass. Lymph Nodes: No lymphadenopathy. Vessels: No aortic aneurysm. Atherosclerotic changes. Bones/Soft Tissues: No destructive osseous lesion. Degenerative changes. Procedure Note Ronnie Fried MD - 11/03/2023 CT CHEST WITH CONTRAST, CT ABDOMEN/PELVIS (RENAL MASS) WITH AND WITHOUTCONTRAST Referring clinician's provided indication for this examination in Epic:Outside Radiology Order; MALIGNANT NEOPLASM KIDNEY, EXCEPT RENAL PELVIS TECHNIQUE: Multidetector CT of the chest was performed with intravenouscontrast using tailored dose modulation techniques. COMPARISON: MRI ABDOMEN (KIDNEYS) WITH AND WITHOUT CONTRAST THORACIC FINDINGS: Devices/Tubes/Lines: None. Lungs: Central airways are patent. Mild diffuse bronchial wall thickening.Subsegmental atelectasis at the posterior lower lobes, inferior lingular,and inferior right middle lobe. 2-3 mm left upper triangular yoni-fissuralnodules, likely intrapulmonary lymph nodes (4:63). No suspicious nodule.No consolidation. Pleura: No effusion or pneumothorax. Mediastinum: Ill-defined hypoattenuating left thyroid nodules measuring upto approximately 1.6 cm. Cardiac chambers are within normal limits forsize. Mild coronary artery calcification. Lymph Nodes: No abnormally enlarged lymph nodes. Chest Wall: No chest wall mass. Bones: No destructive osseous lesion. Degenerative changes. Similar mildanterior wedging of multiple enhancing vertebral bodies and less than 50%height loss of T12 superior endplate. ABDOMINAL FINDINGS: Liver: No suspicious focal lesion. Scattered cysts. Biliary: No bile duct dilation. Noninflamed gallbladder. Spleen: No splenomegaly or suspicious focal lesion. Pancreas: No mass or main duct dilation. Adrenal Glands: No nodule. Kidneys/Ureters: Punctate nonobstructing left renal calyceal stones.Reported interval right renal cryoablation. Expected decrease in softtissue attenuation at the interpolar kidney where there was previously anenhancing mass. No suspicious enhancement within limits of CT technique.No new renal mass. Bilateral cortical cysts. No hydronephrosis. Pelvic Organs/Bladder: Partially obscured by streak artifact frombilateral hip prostheses. No focal bladder wall thickening identified. 3.7cm thin-walled water attenuation left ovarian cyst. Bowel: No abnormal wall thickening or distension. Noninflamed colonicdiverticula. Noninflamed appendix. Peritoneum/Retroperitoneum: No free fluid, free air, or mass. Lymph Nodes: No lymphadenopathy. Vessels: No aortic aneurysm. Atherosclerotic changes. Bones/Soft Tissues: No destructive osseous lesion. Degenerative changes. IMPRESSION: Reported interval right interpolar renal cryoablation, without evidence ofresidual/recurrent disease. No findings suspicious for metastatic disease in the chest, abdomen, orpelvis. Anne Oswald TRANSFORMATION ARCHITECT IMG CT ABD/PELVIS Final Resu lt * CT CHEST WITH CONTRAST (11/02/2023 10:43 AM EDT) Anatomical Region Laterality Modality Chest Computed Tomogra phy 11/03/2023 2:48 PM EDT Impressions 11/03/2023 6:27 PM EDT Reported interval right interpolar renal cryoablation, without evidence of residual/recurrent disease. No findings suspicious for metastatic disease in the chest, abdomen, or pelvis. Narrative 11/03/2023 6:[address] CHEST WITH CONTRAST, CT ABDOMEN/PELVIS (RENAL MASS) WITH AND WITHOUT CONTRAST Referring clinician's provided indication for this examination in Epic: Outside Radiology Order; MALIGNANT NEOPLASM KIDNEY, EXCEPT RENAL PELVIS TECHNIQUE: Multidetector CT of the chest was performed with intravenous contrast using tailored dose modulation techniques. COMPARISON: MRI ABDOMEN (KIDNEYS) WITH AND WITHOUT CONTRAST THORACIC FINDINGS: Devices/Tubes/Lines: None. Lungs: Central airways are patent. Mild diffuse bronchial wall thickening. Subsegmental atelectasis at the posterior lower lobes, inferior lingular, and inferior right middle lobe. 2-3 mm left upper triangular yoni-fissural nodules, likely intrapulmonary lymph nodes (4:63). No suspicious nodule. No consolidation. Pleura: No effusion or pneumothorax. Mediastinum: Ill-defined hypoattenuating left thyroid nodules measuring up to approximately 1.6 cm. Cardiac chambers are within normal limits for size. Mild coronary artery calcification. Lymph Nodes: No abnormally enlarged lymph nodes. Chest Wall: No chest wall mass. Bones: No destructive osseous lesion. Degenerative changes. Similar mild anterior wedging of multiple enhancing vertebral bodies and less than 50% height loss of T12 superior endplate. ABDOMINAL FINDINGS: Liver: No suspicious focal lesion. Scattered cysts. Biliary: No bile duct dilation. Noninflamed gallbladder. Spleen: No splenomegaly or suspicious focal lesion. Pancreas: No mass or main duct dilation. Adrenal Glands: No nodule. Kidneys/Ureters: Punctate nonobstructing left renal calyceal stones. Reported interval right renal cryoablation. Expected decrease in soft tissue attenuation at the interpolar kidney where there was previously an enhancing mass. No suspicious enhancement within limits of CT technique. No new renal mass. Bilateral cortical cysts. No hydronephrosis. Pelvic Organs/Bladder: Partially obscured by streak artifact from bilateral hip prostheses. No focal bladder wall thickening identified. 3.7 cm thin-walled water attenuation left ovarian cyst. Bowel: No abnormal wall thickening or distension. Noninflamed colonic diverticula. Noninflamed appendix. Peritoneum/Retroperitoneum: No free fluid, free air, or mass. Lymph Nodes: No lymphadenopathy. Vessels: No aortic aneurysm. Atherosclerotic changes. Bones/Soft Tissues: No destructive osseous lesion. Degenerative changes. Procedure Note Ronnie Fried MD - 11/03/2023 CT CHEST WITH CONTRAST, CT ABDOMEN/PELVIS (RENAL MASS) WITH AND WITHOUTCONTRAST Referring clinician's provided indication for this examination in Epic:Outside Radiology Order; MALIGNANT NEOPLASM KIDNEY, EXCEPT RENAL PELVIS TECHNIQUE: Multidetector CT of the chest was performed with intravenouscontrast using tailored dose modulation techniques. COMPARISON: MRI ABDOMEN (KIDNEYS) WITH AND WITHOUT CONTRAST THORACIC FINDINGS: Devices/Tubes/Lines: None. Lungs: Central airways are patent. Mild diffuse bronchial wall thickening.Subsegmental atelectasis at the posterior lower lobes, inferior lingular,and inferior right middle lobe. 2-3 mm left upper triangular yoni-fissuralnodules, likely intrapulmonary lymph nodes (4:63). No suspicious nodule.No consolidation. Pleura: No effusion or pneumothorax. Mediastinum: Ill-defined hypoattenuating left thyroid nodules measuring upto approximately 1.6 cm. Cardiac chambers are within normal limits forsize. Mild coronary artery calcification. Lymph Nodes: No abnormally enlarged lymph nodes. Chest Wall: No chest wall mass. Bones: No destructive osseous lesion. Degenerative changes. Similar mildanterior wedging of multiple enhancing vertebral bodies and less than 50%height loss of T12 superior endplate. ABDOMINAL FINDINGS: Liver: No suspicious focal lesion. Scattered cysts. Biliary: No bile duct dilation. Noninflamed gallbladder. Spleen: No splenomegaly or suspicious focal lesion. Pancreas: No mass or main duct dilation. Adrenal Glands: No nodule. Kidneys/Ureters: Punctate nonobstructing left renal calyceal stones.Reported interval right renal cryoablation. Expected decrease in softtissue attenuation at the interpolar kidney where there was previously anenhancing mass. No suspicious enhancement within limits of CT technique.No new renal mass. Bilateral cortical cysts. No hydronephrosis. Pelvic Organs/Bladder: Partially obscured by streak artifact frombilateral hip prostheses. No focal bladder wall thickening identified. 3.7cm thin-walled water attenuation left ovarian cyst. Bowel: No abnormal wall thickening or distension. Noninflamed colonicdiverticula. Noninflamed appendix. Peritoneum/Retroperitoneum: No free fluid, free air, or mass. Lymph Nodes: No lymphadenopathy. Vessels: No aortic aneurysm. Atherosclerotic changes. Bones/Soft Tissues: No destructive osseous lesion. Degenerative changes. IMPRESSION: Reported interval right interpolar renal cryoablation, without evidence ofresidual/recurrent disease. No findings suspicious for metastatic disease in the chest, abdomen, orpelvis. Anne Oswald NP [facility] [place] Final Result documented in this encounter Visit Diagnoses Diagnosis Malignant neoplasm of kidney excluding renal pelvis, unspecified laterality- Primary Malignant neoplasm of kidney excluding renal pelvis, unspecified laterality documented in this encounter Additional Health Concerns Assessment Noted Time PHQ-2 Depression Total Score: 0 06/25/20 22 2:14 PM EST documented as of this encounter Care Teams Base Draw Operator Relationship Specialty Start Date End Date Brandon Granados MD [address] [place] [address] PCP - General Internal Medicine 09/11/20 Korey Coffman MD [address] [address] Cardiology 03/13/21 Nj Francis MD [address] [place] [address] Urology 02/16/22 Joanna Duran MD [address] [place] [phone] Obstetrics and Gynecology 02/16/22 Brandon Granados MD [address] [place] [address] Insurance Assigned Provider 12/24/23 Heaven Tamayo, RN [address] [place] [address] [email or web address] [employer] Grinder Feeder 03/12/24 04/03/24 documented as of this encounter Additional Source Comments The information contained in this document represents components of the legal health record. It is not the complete legal health record.[facility]
--- OUTSIDE RECORDS SUMMARY | 2025-05-25 10:25 | XMS_ITS | Encounter Summary ---
Author Organization [facility] Address [address] [facility] [address] [place] [address] Phone Care Team Providers Care Plaster Caster Name Role Phone Brandon Granados MD Primary Care Provider [phone] Korey Coffman MD Unavailable [phone] Nj Francis MD Unavailable [phone] Joanna Duran MD Unavailable [phone] Brandon Granados MD Unavailable [phone] Heaven Tamayo RN Unavailable [phone] Encounter Details Date Type Department Care Team (Late st Contact Info) Description 09/19/2023 Procedure Pass [facility], Ct Scan - [address] [address] Social History Tobacco Use Types Packs/Day Years [...] 8:30 AM EDT Office Visit [facility] Internal Medicine [address] [place] [address] Brandon Granados MD [address] [place] [address] 03/07/2026 9:10 AM EDT Office Visit [facility] [address] [place] [address] Henry Dias DO [address] [place] [phone] documented as of this encounter Visit Diagnoses Not on filedocumented in this encounter Additional Health Concerns Assessment Noted Time PHQ-2 Depression Total Score: 0 09/29/19 24 11:29 AM EST documented as of this encounter Care Teams Plaster Caster Relationship Specialty Start Date End Date Brnadon Granados MD [address] [place] [address] PCP - General Internal Medicine 09/11/20 Korey Coffman MD [address] [address] Cardiology 03/13/21 Nj Francis MD [address] [address] Urology 02/16/22 Joanna Duran MD [address] [place] [address] [address] [place] [address] Obstetrics and Gynecology 02/16/22 Brandon Granados MD [address] [place] [address] Insurance Assigned Provider 12/24/23 Heaven Tamayo, RN [address] [place] [address] [email or web address] [facility] Research Kennel Supervisor 03/12/24 04/03/24 documented as of this encounter Additional Source Comments The information contained in this document represents components of the legal health record. It is not the complete legal health record.[facility]
--- OUTSIDE RECORDS SUMMARY | 2025-05-25 10:25 | XMS_ITS | Encounter Summary ---
Author Organization [facility] Address [address] [facility] [address] [place] [address] Phone Care Team Providers Care Tar Boiler Name Role Phone Brandon Granados MD Primary Care Provider [phone] Korey Coffman MD Unavailable [phone] Nj Francis MD Unavailable [phone] Joanna Duran MD Unavailable [phone] Brandon Granados MD Unavailable [phone] Heaven Tamayo RN Unavailable [phone] Encounter Details Date Type Department Care Team (Late st Contact Info) Description 09/19/2023 Procedure Pass [facility], Ct Scan - [address] [address] Social History Tobacco Use Types Packs/Day Years [...] Description 06/05/2025 8:30 AM EDT Office Visit [facility] Internal Medicine [address] [place] [address] Brandon Granados MD [address] [place] [address] 03/07/2026 9:10 AM EDT Office Visit [facility] [address] [place] [address] Henry Dias DO [address] [place] [address] [phone] documented as of this encounter Visit Diagnoses Not on filedocumented in this encounter Additional Health Concerns Assessment Noted Time PHQ-2 Depression Total Score: 0 09/29/19 24 11:29 AM EST documented as of this encounter Care Teams Tar Boiler Relationship Specialty Start Date End Date Brandon Granados MD [address] [place] [address] PCP - General Internal Medicine 09/11/20 Korey Coffman MD [address] [address] Cardiology 03/13/21 Nj Francis MD [address] [address] Urology 02/16/22 Joanna Duran MD [address] [place] [address] Drive [address] [place] [address] Obstetrics and Gynecology 02/16/22 Brandon Granados MD [address] [place] [address] Insurance Assigned Provider 12/24/23 Heaven Tamayo, RN [address] [place] [phone] [email or web address] [facility] Mandarin Teacher 03/12/24 04/03/24 documented as of this encounter Additional Source Comments The information contained in this document represents components of the legal health record. It is not the complete legal health record.[facility]
--- NOTE | 2025-05-25 10:53 | PC.NURSE ---
Patient ambulating to bathroom with cane while wearing c collar despite being educated on risks
[2025-05-25 11:01] VITALS: PULSE 81; RESP 17; O2SAT 98
[2025-05-25 11:31] LABS: MANUAL DIFF FLAG NO
[2025-05-25 11:32] LABS: Hematocrit 40.9 % (37.0-47.0); Hemoglobin 13.2 g/dl (12.0-16.0); Imm Gran Abs Auto 0.02 X10*3/uL (0.00-0.03); Imm Gran Pct Auto 0.3 % (0.0-0.4); Lymphocytes Absolute Auto 1.6 X10*3/uL (1.2-4.9); Mean Corpuscular HGB Conc 32.3 g/dl (31.0-35.0); Mean Corpuscular Hemoglobin 29.1 pg (27.0-33.0); Mean Corpuscular Volume 90.1 fL (80.0-98.0); NRBC Abs Auto 0.000 X10*3/uL (0.0-0.012); NRBC Pct Auto 0.0 /100WBC (0.0-0.2); Platelet Count 317 X10*3/uL (160-400); Red Blood Count 4.54 X10*6/uL (4.20-5.50); White Blood Count 6.3 X10*3/uL (4.8-10.8)
[2025-05-25 11:53] LABS: Alanine Aminotransferase 15 U/L (0-31); Albumin Level 4.5 g/dL (3.5-5.0); Alkaline Phosphatase 94 U/L (39-117); Anion Gap 12 (12-20); Aspartate Amino Transferase 28 U/L (5-31); Blood Urea Nitrogen 16 mg/dL (9-16); Calcium 9.4 mg/dL (8.4-10.2); Carbon Dioxide 26 mmol/L (22-29); Chloride 109 mmol/L (96-108); Creatinine Clr Calc Pharmacy 70.4; Estimated Glomerular Filt Rate > 60; Magnesium 2.2 mg/dL (1.6-2.6); Potassium 4.3 mmol/L (3.3-5.1); Sodium 143 mmol/L (135-145); Total Protein 7.1 g/dL (6.5-8.0)
[2025-05-25 11:54] LABS: NT Pro B Type Natriuretic Pept 384.3 pg/mL (<300); Troponin-I High Sensitivity 5.4 ng/L (<3.5-17.0)
--- NOTE | 2025-05-25 12:00 | PC.NURSE ---
Pt changed into pediatric c-collar w/2 other RNs per PA order due to improper sizing in previous universal adult collar. Pt changed into hospital gown, clothing and jewelry removed for MRI. Purewick placed. Pt resting comfortably in bed, care ongoing.
[2025-05-25 14:58] VITALS: BP 177/72; PULSE 79; RESP 17; TEMP 37.1; O2SAT 99
== END 2025-05-25 15:01 | disposition home or self-care (01) ==
PROVIDERS: Physician Assistant Medical; Emergency Provider Emergency Medicine; PCP Internal Medicine
DX: M54.2 Cervicalgia (principal); R42 Dizziness and giddiness; R94.31 Abnormal electrocardiogram [ECG] [EKG]; R06.02 Shortness of breath; R51.9 Headache, unspecified; M25.562 Pain in left knee; R26.81 Unsteadiness on feet; Z51.81 Encounter for therapeutic drug level monitoring; Z13.29 Encounter for screening for other suspected endocrine disorder; Z79.899 Other long term (current) drug therapy
CPT/HCPCS: 36415; 70450; 72125; 72141; 73564; 80053; 83735; 83880; 84443; 84484; 85025; 93005; 99284

== ENCOUNTER → 2025-05-25 10:06 | Outpatient (BNV) | payer MEDICARE, OTHER, SELFPAY | PROVIDERS: Emergency Provider Emergency Medicine; PCP Internal Medicine; Visit Provider Internal Medicine Cardiovascular Disease | DX: R94.31 Abnormal electrocardiogram [ECG] [EKG] (principal); R42 Dizziness and giddiness | CPT/HCPCS: 93010 ==

== ENCOUNTER → 2025-05-25 10:06 | Outpatient (BNV) | payer MEDICARE, OTHER, SELFPAY | PROVIDERS: PCP Internal Medicine; Visit Provider Radiology Diagnostic Radiology | DX: M99.61 Osseous and subluxation stenosis of intervertebral foramina of cervical region (principal); M54.2 Cervicalgia; S09.90XA Unspecified injury of head, initial encounter; M25.562 Pain in left knee; W19.XXXA Unspecified fall, initial encounter | CPT/HCPCS: 70450; 72125; 73564 ==

== ENCOUNTER 2025-06-10 10:57 | Outpatient (AMB) | payer MEDICARE, OTHER, SELFPAY ==
--- OUTSIDE RECORDS SUMMARY | 2025-06-05 08:30 | XMS_ITS | Encounter Summary ---
Author Organization [facility] Address [address] [facility] [address] [place] [address] Phone Care Team Providers Care Wind Development Director Name Role Phone Brandon Granados MD Primary Care Provider [phone] Korey Coffman MD Unavailable [phone] Nj Francis MD Unavailable [phone] Joanna Duran MD Unavailable [phone] Brandon Granados MD Unavailable [phone] Reason for Referral * Physical Therapy (Within 2 weeks) - New Request Specialty Diagnoses / Procedures Referred By Lulu gamboa Referred To Contact Diagnoses Fall, initial encounter Brandon Granados MD [address] [place] [address] Phone: tel: fax: [email or web address] Unknown, Unknown, Referral ID Status Reason Start Date Expiration Date V isits Requested Visits Authorized [id number] New Request 06/05/2025 06/05/2026 1 1 Scheduling Instructions Please call [facility] directly to be scheduled. [facility] Locations: [address] , [address] [place] [address] P:[phone] Anita [address] [place] [address] P:[phone], [address] [address] P: [phone] Alexander [address] [place] [address] P:[phone] [place] [address] [place] [address] P:[phone] [facility] MD P: F: Reason for Visit * Reason Comments Follow-up 3 month f/u Encounter Details Date Type Department Care Team (Latest Contact Info) Description 06/05/2025 8:30 AM EDT Office Visit [facility] Internal Medicine [address] [place] [address] Brandon Granados MD [address] [place] [address] [email or web address] Benign essential hypertension (Primary Dx); Thrombophlebitis of superficial veins of right lower extremity; Edema of right lower leg; Impaired fasting glucose; Pure hypercholesterolemia; Nocturia; Fall, initial encounter Social History Tobacco Use Types Packs/Day Years [...] on file documented as of this encounter Last Filed Vital Signs Vital Sign Reading Time Taken Comments Blood Pressure 165/76 06/05/2025 9:15 AM EDT Pulse 72 06/05/2025 8:27 AM EDT Temperature 36.7 C (98 F) 06/05/2025 8:27 AM EDT Respiratory Rate - - Oxygen Saturation 97% 06/05/2025 8:27 AM EDT Inhaled Oxygen Concentration - - Weight 72.1 kg (159 lb) 06/05/2025 8:27 AM EDT Height 155.7 cm (5' 1.3 ) 06/05/2025 8:27 AM EDT Body Mass Index 29.75 06/05/2025 8:27 AM EDT documented in this encounter Progress Notes * Branodn Granados MD - 06/05/2025 8:30 AM EDT Subjective Alexandra Hughes is a 75 y.o. female. History of Present Illness Alexandra Hughes is a 75 year old female who presents with a fall resulting in multiple injuries andconcerns about a blood clot. She experienced a fall on Tuesday morning around 9 AM, during which she tripped and attempted to brace herself with her hand, resulting in a significant gouge. Her vision was described as 'going like a kaleidoscope' following the fall. Emergency services were called, and she was taken to the hospital where an x-ray and CT scan were performed. An MRI was conducted to rule out vertebral fractures.She was discharged later that day after being cleared of fractures. Following the fall, she noticed significant soreness, particularly in her knee, which she did not initially realize was injured. She also reported bruising from the fall, including on her upper body from hitting a point on a hutch. She has a history of a previous fall a few weeks prior, where she tumbled down stairs but sustained no significant injuries. An ultrasound revealed a small blood clot near the right ankle. The area was tender and swollen. She has been self-administering aspirin daily since the discovery of the clot. Family history is notable for her sister having a history of blood clots, including one in the leg. She reports a history of a concussion in 2022 from a fall, which resulted in a loss of consciousness. Since then, she has experienced occasional vision disturbances, particularly when changing positions, which she attributes to the concussion. She also mentioned a sensation of 'vision shifting' when bending down or getting up. Her blood pressure readings at home have been variable, with higher readings noted when she is not at rest. She has not been on blood pressure medication recently due to concerns about dizziness. Shemonitors her blood pressure regularly, noting that the left arm often shows higher readings. Her blood pressure at home has been up and down 148-150/76 on left. She has experienced a sensation of a knot in her abdomen when straining, which resolved spontaneously. No current urinary symptoms or headaches. She has a history of hip replacement in 2001, which she feels may have affected her leg flexibility. She has been cautious about her activities, particularly avoiding [employer] due to safety concerns, and has been managing her transportation needs independently. Current Outpatient Medications Ordered in [facility] Medication Sig ascorbic acid, vitamin C, (VITAMIN C) 500 MG tablet Take 500 mg by mouth 2 (two) times a day. aspirin 81 MG EC tablet Take 81 mg by mouth every morning. blood pressure monitor Kit 1 Units by Miscellaneous route daily. CALCIUM ORAL Take 1 capsule by mouth 2 (two) times a day. cholecalciferol (VITAMIN D3) 2,000 unit tablet Take 2,000 Units by mouth daily. coenzyme Q10 300 mg Cap Take 1 capsule by mouth every morning. cranberry fruit 400 mg Tab Take 400 mg by mouth every morning. docosahexaenoic acid/epa (FISH OIL ORAL) Take 1 capsule by mouth daily. fluticasone propionate (FLONASE) 50 mcg/actuation nasal spray 2 sprays by Nasal route daily. PRN (Patient taking differently: 2 sprays by Nasal route as needed for allergies (mostly during Spring andlate Fall).) glucosamine sulfate dipot chlr (GLUCOSAMINE SULFATE DIPOTASSIUM CHLORIDE) 1,000 mg Cap capsule Take1,500 mg by mouth 2 (two) times a day. MAGNESIUM ORAL Take 1 capsule by mouth every evening. glycinate niacinamide (PUREVITA VITAMIN B3 ORAL) Take by mouth. 3-4 x daily pantoprazole (PROTONIX) 20 MG tablet Take 20 mg by mouth daily. rosuvastatin (CRESTOR) 10 MG tablet TAKE 1 TABLET BY MOUTH DAILY TURMERIC ORAL Take 500 mg by mouth 2 (two) times a day. amoxicillin (AMOXIL) 500 MG capsule Take 4 capsule 1 hour prior to dental procedures hydroCHLOROthiazide 12.5 MG tablet Take 1 tablet (12.5 mg total) by mouth daily. Review of Systems Denies headaches/chest pains Objective Physical Exam BP (!) 165/76 (BP Location: Left arm, Patient Position: Sitting, Cuff Size: Medium) Pulse 72 Temp 36.7 ??C (98 ??F) (Oral) Ht 155.7 cm (5' 1.3 ) Wt 72.1 kg (159 lb) LMP (LMP Unknown) KmW671% BMI 29.75 kg/m?? HEENT:PERRTL, EOM intact, fundi benign, TM's clear, throat clear. NECK: supple, no thyroid megaly, no adenopathy. LUNGS: clear to A&P,no wheezing/rhonichi/rales. HEART: RRR S1S2 without murmurs, rubs or gallops. ABDOMEN: bowel sounds: normal, soft non tender without masses. EXTREMITIES: without edema, clubbing or cyanosis. EXTREMITIES: Right leg more swollen than left. 1+ edema in right foot. Tenderness at right lower tibia, 1-2 inches above medial malleolus. NEUROLOGICAL: Negative Romberg test. Assessment & Plan Benign essential hypertension Elevated blood pressure with dizziness. No current antihypertensive medication. - Initiate low-dose blood pressure medication, starting every other day for the first week, then daily. - Monitor blood pressure readings and report after a couple of weeks. - Order fasting blood work after a few weeks on medication. Superficial thrombophlebitis of right lower leg Superficial thrombophlebitis at the medial malleolus with slight tenderness. Small clot on ultrasound. - Continue aspirin therapy. Edema of right lower extremity Edema likely secondary to superficial thrombophlebitis with slight tenderness above the medial malleolus. Gait instability and recurrent falls Gait instability with recurrent falls. Balance issues, negative Romberg test. Osteoarthritis contributing. - Refer to physical therapy for balance improvement. - Use cane for stability, especially when walking outside. Osteoarthritis Osteoarthritis contributing to gait instability and falls. Stiffness and balance issues present. I obtained verbal consent from the patient or their proxy to record this visit for purposes of producing a draft of the encounter documentation. documented in this encounter Plan of Treatment Upcoming Encounters Date Type Department Care Team (Late st Contact Info) Description 07/04/2025 10:30 AM EST Office Visit [facility] Orthopedics & Sports Medicine [address] [place] [address] Phil Brand PA-C [address] [place] [address] Orthopedics & Sports Medicine, [place] [address] 09/06/2025 11:30 AM EST Office Visit [facility] Internal Medicine [address] [place] [address] Brandon Granados MD [address] [place] [address] 03/07/2026 9:10 AM EDT Office Visit [facility] [address] [place] [address] [id number] Henry Dias DO [address] [place] [address] Scheduled Orders Name Type Priority Associated Diagnoses Orde r Schedule Comprehensive metabolic panel Lab Routine Benign essential hypertension Pure hypercholesterolemia Expected: 06/05/2025, Expires: 06/05/2026 Lipid panel Lab Routine Benign essential hypertension Pure hypercholesterolemia Expected: 06/05/2025, Expires: 06/05/2026 CBC and differential Lab Routine Benign essential hypertension Expected: 06/05/2025, Expires: 06/05/2026 TSH with reflex Lab Routine Benign essential hypertension Pure hypercholesterolemia Expected: 06/05/2025, Expires: 06/05/2026 Urinalysis w/reflex Urine Culture Lab Routine Benign essential hypertension Nocturia Expected: 06/05/2025, Expires: 06/05/2026 Scheduled Referrals Name Type Priority Associated Diagnoses Orde r Schedule [facility] Physical Therapy Outpatient Referral Routine Fall, initial encounter Ordered: 06/05/2025 documented as of this encounter Visit Diagnoses Diagnosis Benign essential hypertension- Primary Essential hypertension, benign Thrombophlebitis of superficial veins of right lower extremity Edema of right lower leg Impaired fasting glucose Pure hypercholesterolemia Nocturia Fall, initial encounter documented in this encounter Additional Health Concerns Assessment Noted Time PHQ-2 Depression Total Score: 0 11/07/19 1:40 PM EDT documented as of this encounter Care Teams Wind Development Director Relationship Specialty Start Date End Date Brandon Granados MD [address] [place] [address] [email or web address] PCP - General Internal Medicine 09/11/20 oKrey Coffman MD [address] [address] Cardiology 03/13/21 Nj Francis MD [address] [address] [email or web address] Urology 02/16/22 Joanna Duran MD [address] [place] [address] Drive [address] [place] [address] Obstetrics and Gynecology 02/16/22 Brandon Granados MD [address] [place] [address] [email or web address] Insurance Assigned Provider 12/24/23 documented as of this encounter Additional Source Comments The information contained in this document represents components of the legal health record. It is not the complete legal health record.[facility]
[2025-06-10 11:41] VITALS: BP 142/70; PULSE 72; TEMP 36.6; O2SAT 96; BMI 29.9
--- NOTE | 2025-06-10 11:41 | AM.OFFWIN_ITS ---
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 Intake Note: pt presents with RT ankle and foot swelling after a fall on 05/25/2025- went to [facility] ER same day- ultrasound done at [facility] was told superficial clotting Patient Tobacco Use Status: Never used Tobacco Allergies silver sulfadiazine (From SILVADENE) Allergy (Mild, Verified 06/10/25 11:44) RASH Sulfa (Sulfonamide Antibiotics) Allergy (Mild, Verified 06/10/25 11:44) mild Do you need a note to return to daycare/school/sports/work: No HPI HPI Comments History of Present Illness Details 75 y/o Female patient who presents to [facility] walk [facility] clinic with c/o Right Ankle swelling with tenderness. Pt was seen and evaluated by her PCP (Dr. Granados @ [facility]) 2 weeks ago. She had Xrays done which were negative for fracture. She was also sent for U/S to r/o DVT - she reports there was a Small Clot on her distal Tibia but was told not worry about it. She was then evaluated by her Vascular Doctor (Dr. Butler of [facility]) who was not so concerned about it. Pt reports that the swelling is actually going down with mild tenderness. She did call back the Vascular doctor today who advised her to come here for an evaluation. Denies severe pain on her right Lower extremity. Denies CP, SOB, Dizziness or headaches. No redness and the Kiki's sign negative. [facility] Medical History (Updated 06/10/25 @ 12:32 by Jennifer Davis NP) Right ankle swelling Diverticulosis Kidney tumor Gastroesophageal reflux disease Helicobacter pylori (H. pylori) Tubular adenoma Other and unspecified hyperlipidemia Essential hypertension Surgical History History of surgery on arm History of bunionectomy of right great toe Hx of blepharoplasty History of esophagogastroduodenoscopy (EGD) Hx of colonoscopy H/O bilateral hip replacements History of cardiac catheterization (~11/21/18) Family History Father Myocardial infarction Hypertension Mother Diabetes Sister CVA (cerebral vascular accident) S/P CABG x 4 Sister Myocardial infarction Social History Are you a primary coronary care unit nurse to a significant other at home: No (lives alone; recently 07/2022) Alcohol intake: former Patient Tobacco Use Status: Never used Tobacco Advance Directives Date on File: 10/01/22 Review of Systems Const All systems reviewed & are unremarkable except as noted in HPI and below Physical Exam Vital Signs: Last Vital Signs Temp 97.9 F 06/10/25 11:41 Pulse 72 06/10/25 11:41 BP 142/70 H 06/10/25 11:41 Pulse Ox 96 06/10/25 11:41 Oxygen Delivery Method Room Air 06/10/25 11:41 BMI result Body Mass Index 29.9 Const General: no acute distress Nutritional Appearance: obese Orientation/consciousness: patient oriented x3 Neuro General: patient oriented x3, gait normal (Walks with Crutch ) and moves all extremities Motor exam (neuro): 5/5 motor strength present throughout Extrem Right lower extremity: ankle Details: tenderness, edema Details: non-pitting and 1+, normal ROM and other (Varicose Veins present); no unusual warmth, no ecchymosis and no crepitus Psych Speech and movement: Normal speech and movement present Assessment & Plan Assessment & Plan (1) Right ankle swelling: Code(s): M25.471 - Effusion, right ankle Plan: Advised Pt to f/u with her PCP Advised Pt to call the vascular Doctor for an appointment. Kiki's Sign negative - low suspicious for DVT. Not clear what she means by a small clot on distal Tibia - she is currently not on any Blood thinners. No available Hospital or images Notes for review. Advised if pain and swelling persists to go to ED for Further evaluation. Meanwhile; elevate Limbs, wear compression stockings. Coding Level of Care Code Est Pt Level 4 (92291) Diagnoses Right ankle swelling M25.471 Time Spent (min) 20
--- OUTSIDE RECORDS SUMMARY | 2025-06-10 13:42 | XMS_ITS | Encounter Summary ---
Author Organization [facility] Address [address] [facility] [address] [place] [address] Phone Care Team Providers Care Home Stager Name Role Phone Brandon Granados MD Primary Care Provider [phone] Brandon Granados MD Unavailable Korey Coffman MD Unavailable [phone] Nj Francis MD Unavailable [phone] Joanna Duran MD Unavailable [phone] Brandon Granados MD Unavailable [phone] Heaven Tamayo RN Unavailable [phone] Reason for Referral * MRI/CAT Scan - Closed Specialty Diagnoses / Procedures Referred By Contkarson t Referred To Contact Radiology Diagnoses Other specified disorders of kidney and ureter Procedures MRI Abdomen Bozena Haines MD Phone: tel: fax: Referral ID Status Reason Start Date Expiration Date Visits Re quested Visits Authorized [id number] Closed 08/18/2022 08/18/2023 1 1 Encounter Details Date Type Department Care Team (Late st Contact Info) Description 08/18/2022 Transcribe Orders Virtual Department [address] [place], [place] [phone] Bozena Haines MD [address] [place] [address] [place] [address] Other specified disorders of kidney and [...] Description 07/04/2025 10:30 AM EST Office Visit [facility] Orthopedics & Sports Medicine [address] [place] [address] Phil Brand PA-C [address] [place] [address] Orthopedics & Sports Medicine, [place] [address] 09/06/2025 11:30 AM EST Office Visit [facility] Internal Medicine [address] [place] [address] Brandon Granados MD [address] [place], [place] [phone] 03/07/2026 9:10 AM EDT Office Visit [facility] [address] [place], [place] [phone] Henry Dias DO [address] [place], [place] [phone] documented as of this encounter Results * [...] documented as of this encounter Care Teams Home Stager Relationship Specialty Start Date End Date Brandon Granados MD [address] [place] [address] PCP - General Internal Medicine 09/11/20 Brandon Granados MD [address] [place] [address] Insurance Assigned Provider 4/10/21 1/7/23 Korey Coffman MD [address] [address] Cardiology 03/13/21 Nj Francis MD [address] [address] Urology 02/16/22 Joanna Duran MD [address] [place] [address] [address] [place] [address] Obstetrics and Gynecology 02/16/22 Brandno Granados MD [address] [place] [address] Insurance Assigned Provider 12/24/23 Heaven Tamayo, RN [address] [place] [address] [email or web address] [facility] Shearer Helper 03/12/24 04/03/24 documented as of this encounter Additional Source Comments The information contained in this document represents components of the legal health record. It is not the complete legal health record.[facility]
--- OUTSIDE RECORDS SUMMARY | 2025-06-10 13:42 | XMS_ITS | Encounter Summary ---
Author Organization [facility] Address [address] [place] [address] [place] [address] Phone Care Team Providers Care Fan Blade Truer Name Role Phone Brandon Granados MD Primary Care Provider [phone] Brandon Granados MD Unavailable [phone] Korey Coffman MD Unavailable [phone] Nj Francis MD Unavailable [phone] Joanna Duran MD Unavailable [phone] Brandon Granados MD Unavailable [phone] Heaven Tamayo RN Unavailable [phone] Encounter Details Date Type Department Care Team (Late st Contact Info) Description 02/03/2022 Procedure Pass [facility], Ct Scan - [address] [address] Social History Tobacco Use Types Packs/Day Years [...] Description 07/04/2025 10:30 AM EST Office Visit [facility] Orthopedics & Sports Medicine [address] [place] [address] Phil Brand PA-C [address] [place] [address] Orthopedics & Sports Medicine, [place] [address] 09/06/2025 11:30 AM EST Office Visit [facility] Internal Medicine [address] [place] [address] Brandon Granados MD [address] [place] [address] 03/07/2026 9:10 AM EDT Office Visit [facility] [address] [place] [address] Henry Dias DO [address] [place] [address] documented as of this encounter Visit Diagnoses Not on filedocumented in this encounter Additional Health Concerns Assessment Noted Time PHQ-2 Depression Total Score: 0 05/07/20 10:03 AM EDT documented as of this encounter Care Teams Fan Blade Truer Relationship Specialty Start Date End Date Brandon Granados MD [address] [place] [address] PCP - General Internal Medicine 09/11/20 Brandon Granados MD [address] [place] [address] Insurance Assigned Provider 11/22/20 08/21/22 Korey Coffman MD [address] [place] [address] Cardiology 03/13/21 Nj Francis MD [address] [place] [address] Urology 02/16/22 Joanna Duran MD [address] [place] [address] [address] [place] [address] Obstetrics and Gynecology 02/16/22 Brandon Granados MD [address] [place] [address] [email or web address] Insurance Assigned Provider 12/24/23 Heaven Tamayo, RN [address] [place] [address] [email or web address] [facility] Associate Relations Specialist 03/12/24 04/03/24 documented as of this encounter Additional Source Comments The information contained in this document represents components of the legal health record. It is not the complete legal health record.[facility]
--- OUTSIDE RECORDS SUMMARY | 2025-06-10 13:42 | XMS_ITS | Encounter Summary ---
Author Organization [facility] Address [address] [place] [address] [place] [address] Phone Care Team Providers Care Applications Processor Name Role Phone Brandon Granados MD Primary Care Provider [phone] Brandon Granados MD Unavailable [phone] Korey Coffman MD Unavailable [phone] Nj Francis MD Unavailable [phone] Joanna Duran MD Unavailable [phone] Brandon Granados MD Unavailable [phone] Heaven Tamayo RN Unavailable [phone] Encounter Details Date Type Department Care Team (Late st Contact Info) Description 02/11/2022 Procedure Pass [facility], [address] [address] Social History Tobacco Use Types Packs/Day Years [...] Description 07/04/2025 10:30 AM EST Office Visit [facility] Orthopedics & Sports Medicine [address] [place] [address] Phil Brand PA-C [address] [place] [address] Orthopedics & Sports Medicine, [place] [address] 09/06/2025 11:30 AM EST Office Visit [facility] Internal Medicine [address] [place] [address] Brandon Granados MD [address] [place], [place] [phone] 03/07/2026 9:10 AM EDT Office Visit [facility] [address] [place], [place] [phone] Henry Dias DO [address] [place] [address] documented as of this encounter Visit Diagnoses Not on filedocumented in this encounter Additional Health Concerns Assessment Noted Time PHQ-2 Depression Total Score: 0 05/07/20 10:03 AM EDT documented as of this encounter Care Teams Applications Processor Relationship Specialty Start Date End Date Brandon Granados MD [address] [place] [address] PCP - General Internal Medicine 09/11/20 Branodn Granados MD [address] [place], [place] [phone] Insurance Assigned Provider 11/22/20 08/21/22 Korey Coffman MD [address] [place] [address] Cardiology 03/13/21 Nj Francis MD [address] [place] [phone] [email or web address] Urology 02/16/22 Joanna Duran MD [address] [place] [address] [address] [place] [address] Obstetrics and Gynecology 02/16/22 Brandon Granados MD [address] [place] [address] [email or web address] Insurance Assigned Provider 12/24/23 Heaven Tamayo, RN [address] [place] [address] [email or web address] [facility] Consultant Internship 03/12/24 04/03/24 documented as of this encounter Additional Source Comments The information contained in this document represents components of the legal health record. It is not the complete legal health record.[facility]
--- OUTSIDE RECORDS SUMMARY | 2025-06-10 13:43 | XMS_ITS | Encounter Summary ---
Author Organization [facility] Address [address] [facility] [address] [place] [address] Phone Care Team Providers Care Tipple Repairer Name Role Phone Brandon Granados MD Primary Care Provider [phone] Korey Coffman MD Unavailable [phone] Nj Francis MD Unavailable [phone] Joanna Duran MD Unavailable [phone] Brandon Granados MD Unavailable [phone] Encounter Details Date Type Department Care Team (Late st Contact Info) Description 05/28/2025 Orders Only [facility] [place] Internal Medicine [address] [place] [address] Provider, MD Marilyn [address] [place] [address] Social History Tobacco Use Types Packs/Day [...] Description 07/04/2025 10:30 AM EST Office Visit [facility] Orthopedics & Sports Medicine [address] [place] [address] Phil Brand PA-C [address] [place] [address] Orthopedics & Sports [place], [place] [address] 09/06/2025 11:30 AM EST Office Visit [facility] Internal Medicine [address] [place] [address] Brandon Granados MD 40 [place] [address] 03/07/2026 9:10 AM EDT Office Visit [facility] [address] [place] [address] [place] [address] Henry Dias DO 22 [place] [address] documented as of this encounter Procedures Procedure Name Priority Date/Time Associated Diagnosis Comments OUTSIDE IMAGING Routine 05/25/2025 10:17 AM EDT documented in this encounter Results * Outside Imaging Report Only (05/25/2025 10:17 AM EDT) us Historical Provider MD GRIGSBY XR CHEST Final Res ult documented in this encounter Visit Diagnoses Not on filedocumented in this encounter Additional Health Concerns Assessment Noted Time PHQ-2 Depression Total Score: 0 11/07/19 1:40 PM EDT documented as of this encounter Care Teams Tipple Repairer Relationship Specialty Start Date End Date Brandon Granados MD 40 [place] [address] [email or web address] PCP - General Internal Medicine 09/11/20 Korey Coffman MD [address] [address] Cardiology 03/13/21 Nj Francis MD [address] [address] Urology 02/16/22 Joanna Duran MD [address] [place] [address] [address] [place] [address] Obstetrics and Gynecology 02/16/22 Brandon Granados MD [address] [place] [address] Insurance Assigned Provider 12/24/23 documented as of this encounter Additional Source Comments The information contained in this document represents components of the legal health record. It is not the complete legal health record.[facility]
--- OUTSIDE RECORDS SUMMARY | 2025-06-10 13:43 | XMS_ITS | Encounter Summary ---
Author Organization [facility] Address [address] [facility] [address] [place] [address] Phone Care Team Providers Care Valet Runner Name Role Phone Brandon Granados MD Primary Care Provider [phone] Korey Coffman MD Unavailable [phone] Nj Francis MD Unavailable [phone] Joanna Duran MD Unavailable [phone] Brandon Granados MD Unavailable [phone] Heaven Tamayo RN Unavailable [phone] Encounter Details Date Type Department Care Team (Late st Contact Info) Description 09/19/2023 Procedure Pass [facility], Ct Scan - [address] [address] Social History Tobacco Use Types Packs/Day Years [...] Description 07/04/2025 10:30 AM EST Office Visit [facility] Orthopedics & Sports Medicine [address] [place] [address] Phil Brand PA-C [address] [place] [address] Orthopedics & Sports Medicine, [place] [address] 09/06/2025 11:30 AM EST Office Visit [facility] Internal Medicine 40 [place] [address] Brandon Granados MD 40 [place] [address] 03/07/2026 9:10 AM EDT Office Visit [facility] 22 [place] [address] Henry Dias DO 22 [place] [address] documented as of this encounter Visit Diagnoses Not on filedocumented in this encounter Additional Health Concerns Assessment Noted Time PHQ-2 Depression Total Score: 0 09/29/19 11:29 AM EST documented as of this encounter Care Teams Valet Runner Relationship Specialty Start Date End Date Brandon Granados MD 40 [place] [address] PCP - General Internal Medicine 09/11/20 Korey Coffman MD [address] [address] Cardiology 03/13/21 Nj Francis MD [address] [address] Urology 02/16/22 Joanna Duran MD [address] [place] [address] [address] [place] [address] Obstetrics and Gynecology 02/16/22 Brandon Granados MD [address] [place] [address] Insurance Assigned Provider 12/24/23 Heaven Tamayo, RN [address] [place] [address] [email or web address] [facility] Fiscal Accountant 03/12/24 04/03/24 documented as of this encounter Additional Source Comments The information contained in this document represents components of the legal health record. It is not the complete legal health record.[facility]
--- OUTSIDE RECORDS SUMMARY | 2025-06-10 13:43 | XMS_ITS | Encounter Summary ---
Author Organization [facility] Address [address] [facility] [address] [place] [address] Phone Care Team Providers Care Digital Imaging Technician Name Role Phone Brandon Granados MD Primary Care Provider [phone] Korey Coffman MD Unavailable [phone] Nj Francis MD Unavailable [phone] Joanna Duran MD Unavailable [phone] Brandon Granados MD Unavailable [phone] Heaven Tamayo RN Unavailable Encounter Details Date Type Department Care Team (Late st Contact Info) Description 09/19/2023 Procedure Pass [facility], Ct Scan - [address] [address] Social History Tobacco Use Types Packs/Day Years [...] Description 07/04/2025 10:30 AM EST Office Visit [facility] Orthopedics & Sports Medicine [address] [place] [address] Phil Brand PA-C [address] [place] [address] Orthopedics & Sports Medicine, [place] [address] 09/06/2025 11:30 AM EST Office Visit [facility] Internal Medicine [address] [place] [address] Brandon Granados MD 40 [place] [address] 03/07/2026 9:10 AM EDT Office Visit [facility] 22 [place] [address] Henry Dias DO 22 [place] [address] documented as of this encounter Visit Diagnoses Not on filedocumented in this encounter Additional Health Concerns Assessment Noted Time PHQ-2 Depression Total Score: 0 09/29/19 11:29 AM EST documented as of this encounter Care Teams Digital Imaging Technician Relationship Specialty Start Date End Date Brandon Granados MD 40 [place] [address] PCP - General Internal Medicine 09/11/20 Korey Coffman MD [address] [address] Cardiology 03/13/21 Nj Francis MD [address] [address] Urology 02/16/22 Joanna Duran MD [address] [place] [address] [address] [place] [address] Obstetrics and Gynecology 02/16/22 Brandon Granados MD [address] [place] [address] Insurance Assigned Provider 12/24/23 Heaven Tamayo, RN [address] [place] [address] [email or web address] [facility] Optical Glass Silverer 03/12/24 04/03/24 documented as of this encounter Additional Source Comments The information contained in this document represents components of the legal health record. It is not the complete legal health record.[facility]
--- OUTSIDE RECORDS SUMMARY | 2025-06-10 13:43 | XMS_ITS | Encounter Summary ---
Author Organization [facility] Address [address] [facility] [address] [place] [address] Phone Care Team Providers Care Practice Billing Associate Name Role Phone Brandon Granados MD Primary Care Provider [phone] Korey Coffman MD Unavailable [phone] Nj Francis MD Unavailable [phone] Joanna Duran MD Unavailable [phone] Brandon Granados MD Unavailable Encounter Details Date Type Department Care Team (Late st Contact Info) Description 05/29/2025 Orders Only [facility] [place] Internal Medicine [address] [place] [address] Provider, MD Marilyn [address] [place] [address] Social History Tobacco Use Types Packs/Day [...] Description 07/04/2025 10:30 AM EST Office Visit [facility] Orthopedics & Sports Medicine [address] [place] [address] Phil Brand PA-C [address] [place] [address] Orthopedics & Sports Medicine, [place] [address] 09/06/2025 11:30 AM EST Office Visit [facility] Internal Medicine [address] [place] [address] Brandon Granados MD 40 [place] [address] 03/07/2026 9:10 AM EDT Office Visit [facility] [address] [place] [address] [place] [address] Henry Dias DO 22 [place] [address] documented as of this encounter Procedures Procedure Name Priority Date/Time Associated Diagnosis Comments OUTSIDE IMAGING Routine 05/29/2025 7:54 AM EDT OUTSIDE IMAGING Routine 05/29/2025 7:41 AM EDT OUTSIDE IMAGING Routine 05/29/2025 7:31 AM EDT OUTSIDE IMAGING Routine 05/29/2025 7:27 AM EDT documented in this encounter Results * Outside Imaging Report Only (05/29/2025 7:54 AM EDT) us Historical Provider IMG XR CHEST Final Res ult * Outside Imaging Report Only (05/29/2025 7:41 AM EDT) Historical Provider IMG XR CHEST Final Res ult * Outside Imaging Report Only (05/29/2025 7:31 AM EDT) Historical Provider IMG XR CHEST Final Res ult * Outside Imaging Report Only (05/29/2025 7:27 AM EDT) Historical Provider IMG XR CHEST Final Res ult documented in this encounter Visit Diagnoses Not on filedocumented in this encounter Additional Health Concerns Assessment Noted Time PHQ-2 Depression Total Score: 0 11/07/19 25 1:40 PM EDT documented as of this encounter Care Teams Practice Billing Associate Relationship Specialty Start Date End Date Brandon Granados MD [address] [place] [address] [email or web address] PCP - General Internal Medicine 09/11/20 Korey Coffman MD [address] [place] [address] Cardiology 03/13/21 Nj Francis MD [address] [address] Urology 02/16/22 Joanna Duran MD [address] [place] [address] [address] [place] [address] Obstetrics and Gynecology 02/16/22 Brandon Granados MD [address] [place] [address] [email or web address] Insurance Assigned Provider 12/24/23 documented as of this encounter Additional Source Comments The information contained in this document represents components of the legal health record. It is not the complete legal health record.[facility]
--- OUTSIDE RECORDS SUMMARY | 2025-06-10 13:43 | XMS_ITS | Encounter Summary ---
Author Organization [facility] Address [address] [place] [address] [place] [address] Phone Care Team Providers Care Director Data Analytics Name Role Phone Brandon Granados MD Primary Care Provider [phone] Brandon Granados MD Unavailable [phone] Korey Coffman MD Unavailable [phone] Nj Francis MD Unavailable [phone] Joanna Duran MD Unavailable [phone] Brandon Granados MD Unavailable [phone] Heaven Tamayo RN Unavailable [phone] Encounter Details Date Type Department Care Team (Late st Contact Info) Description 08/18/2022 Procedure Pass [facility], [address] [address] Social History Tobacco Use Types Packs/Day Years [...] Description 07/04/2025 10:30 AM EST Office Visit [facility] Orthopedics & Sports Medicine [address] [place] [address] Phil Brand PA-C [address] [place] [address] Orthopedics & Sports Medicine, [place] [address] 09/06/2025 11:30 AM EST Office Visit [facility] Internal Medicine 40 [place] [address] Brandon Granados MD 40 [place] [address] 03/07/2026 9:10 AM EDT Office Visit [facility] 22 [place], [place] [phone] Henry Dias DO 22 [place] [address] documented as of this encounter Visit Diagnoses Not on filedocumented in this encounter Additional Health Concerns Assessment Noted Time PHQ-2 Depression Total Score: 0 06/25/20 22 2:14 PM EST documented as of this encounter Care Teams Director Data Analytics Relationship Specialty Start Date End Date Brandon Granados MD 40 [place] [address] PCP - General Internal Medicine 09/11/20 Brandon Granados MD 40 [place], [place] [phone] Insurance Assigned Provider 11/22/20 08/21/22 Korey Coffman MD [address] [place] [address] Cardiology 03/13/21 Nj Francis MD [address] [place] [address] [email or web address] [email or web address] 02/16/22 Joanna Duran MD [address] [place] [address] [address] [place] [address] Obstetrics and Gynecology 02/16/22 Brandon Granados MD [address] [place] [address] Insurance Assigned Provider 12/24/23 Heaven Tamayo, RN [address] [place] [address] [email or web address] [facility] Public Policy Mediator 03/12/24 04/03/24 documented as of this encounter Additional Source Comments The information contained in this document represents components of the legal health record. It is not the complete legal health record.[facility]
--- OUTSIDE RECORDS SUMMARY | 2025-06-10 13:43 | XMS_ITS | Encounter Summary ---
Author Organization 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 Brandon Granados MD 40 [place] [address] Phone: tel: fax: [email or web address] Unknown, Rose, Referral ID Status Reason Start Date Expiration Date V isits Requested Visits Authorized [id number] New Request 06/07/2025 06/07/2026 1 1 Reason for Visit * Reason Onset Date Comments Request for referral 06/07/2025 Encounter Details Date Type Department Care Team (Late st Contact Info) Description 06/07/2025 Telephone [facility] Internal Medicine 40 [place], [place] [phone] Brandon Granados MD [address] [place] [address] [email or web address] Request for referral Social History Tobacco Use Types Packs/Day Years [...] on file documented as of this encounter Progress Notes * Debbie Macdonald - 06/10/2025 8:27 AM EDT Referral, OV Note, Demographics faxed to Vascular [phone]/confirmation received * Brandon Granados MD - 06/07/2025 6:16 PM EDT Referral placed, please fax and call patient to let her know. * Dago Guzman - 06/07/2025 11:26 AM EDT Patient called states she was seen on Tuesday by provider. States she has a small clot on foot. She is stating she would like to see a vein specialist as her foot is still pudgy and swollen. She does not want to wait on something like this and is worried. Please advise. documented in this encounter Plan of Treatment Upcoming Encounters Date Type Department Care Team (Late st Contact Info) Description 07/04/2025 10:30 AM EST Office Visit [facility] Orthopedics & Sports Medicine [address] [place] [address] Phil Brand PA-C [address] [place] [address] Orthopedics & Sports Medicine, [place] [address] 09/06/2025 11:30 AM EST Office Visit [facility] Internal Medicine [address] [place] [address] Brandon Granados MD 40 [place] [address] 03/07/2026 9:10 AM EDT Office Visit [facility] [address] [place] [address] Henry Dias DO 22 [place] [address] Scheduled Referrals Name Type Priority Associated Diagnoses Orde r Schedule Ambulatory referral to External Vascular Medicine Outpatient Referral Routine Thrombophlebitis of superficial veins of right lower extremity Ordered: 06/07/2025 documented as of this encounter Visit Diagnoses Diagnosis Thrombophlebitis of superficial veins of right lower extremity- Primary documented in this encounter Additional Health Concerns Assessment Noted Time PHQ-2 Depression Total Score: 0 11/07/19 1:40 PM EDT documented as of this encounter Care Teams Lock And Dam Equipment Repairer Relationship Specialty Start Date End Date Brandon Granados MD 40 [place] [address] PCP - General Internal Medicine 09/11/20 Korey Coffman MD [address] [place] [address] Cardiology 03/13/21 Nj Francis MD [address] [place] [email or web address] Urology 02/16/22 Joanna Duran MD [address] [place] [address] [address] [place] [address] Obstetrics and Gynecology 02/16/22 Brandon Granados MD [address] [place] [phone] Insurance Assigned Provider 12/24/23 documented as of this encounter Additional Source Comments The information contained in this document represents components of the legal health record. It is not the complete legal health record.[facility]
--- OUTSIDE RECORDS SUMMARY | 2025-06-10 13:43 | XMS_ITS | Clinical Summary ---
Author Organization [facility] Address [address] [facility] [address] [place] [phone] Phone Care Team Providers Care Latex Ribbon Machine Operator Name Role Phone Brandon Granados MD Primary Care Provider [phone] Korey Coffman MD Unavailable [phone] Nj Francis MD Unavailable [phone] Joanna Duran MD Unavailable Brandon Granados MD Unavailable [phone] Allergies Active Allergy Reactions Criticality Noted Date Comments Adhesive 08/22/2019 welts Adhesive Tape-Silicones Rash Low 12/03/2015 Amlodipine Dizziness 06/05/2025 Bacitracin 02/12/2025 Sulfamethoxazole-Trimetho prim 08/22/2019 Turned yellow Other Itching,Swelling 11/16/2024 Allergic to Rachael Silver Sulfadiazine 08/22/2019 welts Trimethoprim 12/03/2015 Other reaction(s): Jaundice Medications ascorbic acid, vitamin C, (VITAMIN C) 500 MG tablet Take 500 mg by mouth 2 (two) times a day. Active cholecalciferol (VITAMIN D3) 2,000 unit tablet Take 2,000 Units by mouth daily. Active cranberry fruit 400 mg Tab Take 400 mg by mouth every morning. Active glucosamine sulfate dipot chlr (GLUCOSAMINE SULFATE DIPOTASSIUM CHLORIDE) 1,000 mg Cap capsule Take 1,500 mg by mouth 2 (two) times a day. Active coenzyme Q10 300 mg Cap Take 1 capsule by mouth every morning. Active TURMERIC ORAL Take 500 mg by mouth 2 (two) times a day. Active fluticasone propionate (FLONASE) 50 mcg/actuation nasal sprayIndications:Aller gic rhinitis, unspecified seasonality, unspecified trigger 2 sprays by Nasal route daily. PRN 15.8 mL 3 2021 Active Additional Information Patient taking differently:2 spray NasalAs needed, allergies, mostly during Spring and late Fall, (No instructions reported), Reported on 06/05/2025 blood pressure monitor KitIndications:Essenti al hypertension 1 Units by Miscellaneous route daily. 1 kit 2022 Active docosahexaenoic acid/epa (FISH OIL ORAL) Take 1 capsule by mouth daily. Active pantoprazole (PROTONIX) 20 MG tablet Take 20 mg by mouth daily. 2023 Active amoxicillin (AMOXIL) 500 MG capsule Take 4 capsule 1 hour prior to dental procedures 2023 Active rosuvastatin (CRESTOR) 10 MG tabletIndications:Pure hypercholesterolemia TAKE 1 TABLET BY MOUTH DAILY 90 tablet 3 2024 Active CALCIUM ORAL Take 1 capsule by mouth 2 (two) times a day. Active MAGNESIUM ORAL Take 1 capsule by mouth every evening. glycinate Active niacinamide (PUREVITA VITAMIN B3 ORAL) Take by mouth. 3-4 x daily Active aspirin 81 MG EC tablet Take 81 mg by mouth every morning. 2024 Active hydroCHLOROthiazide 12.5 MG tabletIndications:Tani gn essential hypertension Take 1 tablet (12.5 mg total) by mouth daily. 100 tablet 3 2024 Active Ca/D3/mag ox/zinc/copper tapper/kayelen/bor (CALCIUM 600-D3 PLUS, MAG-ZINC, ORAL) Take 1 tablet by mouth in the morning. 05/30 Discontinued( No longer taking) zoledronic acid/mannitol-water (RECLAST IV) Inject 5 mg into the vein Once a year. Last Reclast IV 08/2022 Discontinued( No longer taking) amLODIPine (NORVASC) 2.5 MG tabletIndications:Tani gn essential hypertension Take 1 tablet (2.5 mg total) by mouth daily. 100 tablet 3 06/05 Discontinued Active Problems Problem Noted Date Diagnosed Date Pain in right lower leg 05/30/2025 Assessment & Plan (05/30/2025 12:25 PM EDT): Patient with a recent fall who was seen in [facility] emergency room on 05/25 after she tripped and fell. Patient was seen in the emergency department and underwent a cervical CT/MRI, CT head and left knee x-rays all of which were unremarkable. However she started to notice some pain at the distal tibia with noted ecchymosis and edema over her medial malleolus on the right. She states that she is able to bear weight however notes that she has pretty significant pain and tenderness to palpation over the region. On physical exam she is noted to have ecchymosis and tenderness to palpation over the distal end of the right tibia extending into the medial malleolus. I am concerned that the patient could potentially have a underlying fracture. - I have advised the patient to go to Ortho walk-in to be further evaluated and undergo imaging with possible placement of boot if she is found to have a fracture. -Given the pain and concern for underlying blood clots I will also order an ultrasound of the right lower extremity to further assess. Left foot pain 02/12/2025 Assessment & Plan [...] scan to be done by 02/16/2025 at [facility]. She should follow-up within 1 year. I [...] days prior to the infusion at a [facility] facility. She is due for repeat DXA scan on February 11, 2023 and she should have this done at the [facility] at [facility] so that we can see any changes [...] the medical management that was instituted at [facility] and recommend Reclast administration. She is not due for repeat DXA scan until 02/11/2023 but I suggest that she start doing DXA scans at [facility] since he is transitioning her care to this organization. Vitamin D deficiency 08/22/2019 Scoliosis Encounters Date Type Department Care Team Description 06/10/2025 Telephone [facility] [address] [place] [address] Brandon Granados MD Thrombophilia 06/07/2025 Telephone [facility] [address] [place] [address] Brandon Granados MD Request for referral 06/05/2025 8:30 AM EDT Office Visit [facility] [address] [place] [address] Brandon Granados MD Benign essential hypertension (Primary Dx); Thrombophlebitis of superficial veins of right lower extremity; Edema of right lower leg; Impaired fasting glucose; Pure hypercholesterolemia ; Nocturia; Fall, initial encounter 05/30/2025 3:05 PM EDT - 05/30/2025 11:59 PM EDT Hospital Encounter [address] [address] Eliceo Newby PA-C Discharge Disposition: Home or Self Care 05/30/2025 2:01 PM EDT - 05/30/2025 3:04 PM EDT Hospital Encounter [address] [address] Christiano Pressley PA-C Discharge Disposition: Home or Self Care 05/30/2025 2:00 PM EDT Office Visit [facility] at [address] [phone] Christiano Pressley PA-C Sprain of right ankle, unspecified ligament, initial encounter (Primary Dx); Pain and swelling of ankle, right 05/30/2025 11:20 AM EDT Office Visit [facility] [address] [place] [address] Eliceo Newby PA-C Pain in right lower leg (Primary Dx) 05/30/2025 Documentation [facility] [address] [place] [address] Brandon Granados MD 05/30/2025 Telephone [facility] [address] [place] [address] Brandon Granados MD Ankle Pain/Swelling 05/29/2025 Orders Only [facility] [address] [place] [address] ProviderMarilyn MD 05/28/2025 Orders Only [facility] [address] [place] [address] ProviderMarilyn MD 03/11/2025 8:41 AM EDT - 03/11/2025 11:59 PM EDT Hospital Encounter [facility], X-Ray - [address] [place] [address] Benji South MD Discharge Disposition: Home or Self Care 03/11/2025 8:41 AM EDT Hospital Encounter [facility] [address] [place] [address] Henry Dias DO Discharge Disposition: Home or Self Care 03/11/2025 Telephone [facility] [address] [place] [address] Swati Mandujano RN Results from Last 3 Months Immunizations Immunization Administration Dates Next Due COVID-19 (Pre-06/06) Moderna Vaccine, mRNA, PF 09/05/2021,01/05/2021,12/08/2020 Cholera, unspecified formulation 08/25/1978 Hepatitis A, Adult 05/30/1999,07/20/1998 INFLUENZA, SPLIT VIRUS, TRIV ALENT W/ PRESERVATIVE IM 10/13/2015,05/29/2014,05/10/2011 Influenza High-Dose Quadriva lent Preservative Free IM 05/12/2023,06/11/2022,07/17/2021,06/18 Influenza High-Dose Trivalen t Preservative Free IM 04/27/2024,06/10/2019,05/30/2018,05/09,05/28/2015 Influenza Quadrivalent Prese rvative Free IM 05/12/2013 Influenza Quadrivalent w/ Pr eservative IM 04/10/2012 Influenza, whole 04/10/2012, 8,06/22/1997,07/15 MMR 07/08/1998 PPD Test 02/22/1998 Pneumococcal conjugate PCV13 10/13/2015 Pneumococcal polysaccharide PPSV23 01/29/2020, Polio - OPV 08/22/1978 Td (adult),2 Lf Tetanus Toxo id, PF, Adsorbed 05/30/1999,03/27/1989 Td, unspecified formulation 02/22/1998 Tdap 12/04/2015,08/15/2009 Typhoid,parenteral, AKD (US ) 08/15/1985 Yellow Fever 08/24/1978 Zoster live 06/16/2012 Zoster recombinant 09/06/2020,07/02/2020 Family History Medical History [...] F) 06/05/2025 8:27 AM EDT Respiratory Rate 20 05/30/2025 11:18 AM EDT Oxygen Saturation 97% 06/05/2025 8:27 AM EDT Inhaled Oxygen Concentration - - Weight 72.1 kg (159 lb) 06/05/2025 8:27 AM EDT Height 155.7 cm (5' 1.3 ) 06/05/2025 8:27 AM EDT Body Mass Index 29.75 06/05/2025 8:27 AM EDT Plan of Treatment Upcoming Encounters Date Type Department Care Team (Late st Contact Info) Description 07/04/2025 10:30 AM EST Office Visit [facility] [address] [place] [phone] Phil Brand PA-C [address] [place] [address] Orthopedics & Sports Medicine, [place] [address] 09/06/2025 11:30 AM EST Office Visit [facility] [address] [place] [address] Brandon Granados MD [address] [place], [place] [phone] 03/07/2026 9:10 AM EDT Office Visit [facility] [address] [place], [place] [phone] Henry Dias DO [address] [place], [place] [phone] [email or web address] Health Maintenance Due Date Last Done Comments RSV VACCINE (1 - 1-dose 75+ series) 01/05/2023 INFLUENZA VACCINE (#1) 2025 , 05/12/2023, 06/11/2022, Additional history exists COVID-19 VACCINE ( season) 2025 09/05/2021, 01/05/2021, 12/08/2020 DEPRESSION SCREENING 11/06/2025 11/06/2024 Adult Td,Tdap Booster 12/03/2025 12/04/2015 , 08/15/2009, 05/30/1999, Additional history exists BLOOD PRESSURE 12/04/2025 06/05/2025 POTASSIUM LEVEL 05/25/2026 05/25/2025, 07/2 03/2025, 10/05/2024, Additional history exists LIPID PANEL 10/05/2029 10/05/2024, 03/0 01/2024, 12/24/2022, Additional history exists HEPATITIS A VACCINES Aged Out 05/30/1999, 07/20/19 98 No longer eligible based on patient's age to complete this topic HEPATITIS C SCREENING Completed 04/19/2018, 018 PNEUMOCOCCAL VACCINES (50+ years) Completed 01/29/2020, 10/13/2015, 08/15/1999 ZOSTER VACCINES Completed 09/06/2020, 06/15, 06/16/2012 OSTEOPOROSIS SCREENING INITIAL (ONE-TIME) Completed 02/18/2025, 02/15/2024, 02/16/2023, Additional history exists SMOKING STATUS SCREENING (Once After 26 Yrs) Completed 06/05/2025 HIB VACCINES Aged Out No longer eligi ble based on patient's age to complete this topic MENINGOCOCCAL VACCINES (ACWY) Aged Out No longer eligible based on patient's age to complete this topic MENINGOCOCCAL VACCINES (B) Aged Out N o longer eligible based on patient's age to complete this topic Medical Devices Not on file Procedures Procedure Name Priority Date/Time Associated Diagnosis Comments US LOWER EXTREMITY VEINS DUPLEX (RIGHT) STAT 05/30/2025 3:47 PM EDT Pain in right lower leg XR ANKLE 3 OR MORE VIEWS (RIGHT) Routine 05/30/2025 2:09 PM EDT Pain and swelling of ankle, right OUTSIDE IMAGING Routine 05/29/2025 7:54 AM EDT OUTSIDE IMAGING Routine 05/29/2025 7:41 AM EDT OUTSIDE IMAGING Routine 05/29/2025 7:31 AM EDT OUTSIDE IMAGING Routine 05/29/2025 7:27 AM EDT OUTSIDE IMAGING Routine 05/25/2025 10:17 AM EDT OUTSIDE POTASSIUM LEVEL Routine 05/25/2025 OUTSIDE TSH LEVEL Routine 05/25/2025 OUTSIDE ALT LEVEL Routine 05/25/2025 OUTSIDE SERUM CREATININE LEVEL Routine 05/25/2025 COLLAGEN TYPE 1B-TELOPEPTIDE, BLOOD Routine 03/11/2025 9:10 [...] Recently Relevant to Health Maintenance Results * US Lower Extremity Veins Duplex (Right) (05/30/2025 3:47 PM EDT) Anatomical Region Laterality Modality Hip Right, Thigh Right, Knee Right, Leg Right, Ankle Right, Foot Right Ultrasound 05/30/2025 4:10 PM EDT Impressions 05/30/2025 4:23 PM EDT * No evidence of deep venous thrombosis in the visualized veins of the right lower extremity. * Superficial thrombophlebitis of a venous varicosity at the lower calf. Narrative 05/30/2025 4:23 PM EDT US LOWER EXTREMITY VEINS DUPLEX (RIGHT) Referring clinician's provided indication for this examination in Epic: Right Leg Pain; r/o DVT TECHNIQUE: Lower extremity venous ultrasound with color and spectral Doppler. COMPARISON: FINDINGS: Exam Quality: Technically adequate exam demonstrates: Right lower extremity Common femoral vein: Normal compressibility and flow characteristics. Femoral vein: Normal compressibility and flow characteristics. Proximal profunda femoral vein: Normal compressibility. Popliteal vein: Normal compressibility and flow characteristics. Posterior tibial veins: Normal compressibility. Peroneal veins: Not visualized Gastrocnemius: Normal compressibility. Great saphenous vein: Normal compressibility at the saphenofemoral junction. There is superficial occlusive thrombosis of a varicose vein at the lower calf region. Contralateral common femoral vein: Normal compressibility. Procedure Note Jonny Ponce MBBS - 05/30/2025 US LOWER EXTREMITY VEINS DUPLEX (RIGHT) Referring clinician's provided indication for this examination in Epic:Right Leg Pain; r/o DVT TECHNIQUE: Lower extremity venous ultrasound with color and spectralDoppler. COMPARISON: FINDINGS: Exam Quality: Technically adequate exam demonstrates: Right lower extremity Common femoral vein: Normal compressibility and flow characteristics. Femoral vein: Normal compressibility and flow characteristics. Proximal profunda femoral vein: Normal compressibility. Popliteal vein: Normal compressibility and flow characteristics. Posterior tibial veins: Normal compressibility. Peroneal veins: Not visualized Gastrocnemius: Normal compressibility. Great saphenous vein: Normal compressibility at the saphenofemoraljunction. There is superficial occlusive thrombosis of a varicose vein atthe lower calf region. Contralateral common femoral vein: Normal compressibility. IMPRESSION: * No evidence of deep venous thrombosis in the visualized veins of theright lower extremity. * Superficial thrombophlebitis of a venous varicosity at the lowercalf. Eliceo Newby PA-C CV US VASCULAR Final Result * XR ANKLE 3 OR MORE VIEWS (RIGHT) (05/30/2025 2:09 PM EDT) Narrative SYSTEMGENERATED, DOCUMENTATION - 05/30/2025 2:09 PM EDT This image report has been auto-finalized and has not been read by a Radiologist. Interpretation has been included in the provider encounter note for this date of service. us Christiano Pressley PA-C IMG XR LOWER EXTREMITY Final Result * Outside Imaging Report Only (05/29/2025 7:54 AM EDT) Historical Provider IMG XR CHEST Final Res ult * Outside Imaging Report Only (05/29/2025 7:41 AM EDT) Historical Provider IMG XR CHEST Final Res ult * Outside Imaging Report Only (05/29/2025 7:31 AM EDT) Result [facility] IMG XR CHEST Final Res ult * Outside Imaging Report Only (05/29/2025 7:27 AM EDT) Result [facility] Provider IMG XR CHEST Final Res ult * Outside Imaging Report Only (05/25/2025 10:17 AM EDT) Result [facility] MD IMG XR CHEST Final Res ult * Outside TSH Level (05/25/2025) Pathologist [facility] TSH - External 1.82 0.5 - 5 uIU/L Result On license of [facility] LAB BLOOD ORDERABLES Virginie l Result * Outside Potassium Level (05/25/2025) Pathologist [facility] Potassium level - External 4.3 3.4 - 5.0 mmol/L Result On license of [facility] LAB BLOOD ORDERABLES Virginie l Result * (ABNORMAL) Outside Serum Creatinine Level (05/25/2025) Pathologist [facility] Creatinine, serum - External 0.6(A) 0.8 - 1.3 mg/dL Result On license of [facility] LAB BLOOD ORDERABLES Virginie l Result * Outside ALT Level (05/25/2025) Pathologist [facility] ALT - External 15 5 - 30 U/L Result On license of [facility] LAB BLOOD ORDERABLES Virginie l Result * Collagen type 1b-telopeptide, blood (03/11/2025 9:10 AM EDT) Collagen CTx 202 pg/mL [facility] PT LAB MED/PATH [facility] [place] Comment: (NOTE) REFERENCE VALUE 148-967 (18-29 y) 150-635 (30-39 y) 131-670 (40-49 y) 183-1060 (50-59 y) 171-970 (60-69 y) 152-858 (>70 y) 136-689 (Premenopausal) 177-1015 (Postmenopausal) Flagging is based on the age-specific reference interval and not menopausal status. Blood 03/11/2025 9:10 AM EDT 03/11/2025 9:14 AM EDT Henry Dias DO LAB BLOOD ORDERABLES Final [facility]ul t [facility] [address] [place] [address] * (ABNORMAL) Comprehensive metabolic panel (03/11/2025 9:10 AM EDT) SODIUM 141 133 - 146 mmol/L [facility] POTASSIUM 4.4 3.3 - 5.1 mmol/L [facility] CHLORIDE 103 96 - 108 mmol/L [facility] CO2 25 21 - 35 mmol/L [facility] BUN 19 6 - 19 mg/dL [facility] CREATININE 0.70 0.5 - 1.5 mg/dL [facility] GLUCOSE 100(H) 70 - 99 mg/dL [facility] ALBUMIN 4.4 3.9 - 4.8 g/dL [facility] TOTAL PROTEIN 7.1 6.5 - 8.0 g/dL [facility] CALCIUM 9.6 8.4 - 10.3 mg/dL [facility] ALKALINE PHOSPHATASE 71 39 - 117 U/L [facility] TOTAL BILIRUBIN 0.4 0.0 - 1.2 mg/dL [facility] AST 23 0 - 37 U/L [facility] ALT 12 0 - 40 U/L [facility] GLOBULIN 2.7 1 - 4.8 g/dL [facility] EGFR 89 >59 mL/min/1.7 3m2 [facility] Comment:Estimated glomerular filtration rate calculated using the CKD-EPI refit equation. ANION GAP 17 10 - 20 mmol/L [facility] Blood 03/11/2025 9:10 AM EDT 03/11/2025 9:14 AM EDT Henry Dias LAB BLOOD ORDERABLES Final Resul t [address] [phone] * XR PELVIS 1-2 VIEW (03/11/2025 8:56 [...] provided indication for this examination in Epic: S/P Fall COMPARISON: Pelvis/right hip radiographs 02/07/2025 Procedure Note Patience Pascal MD - 03/11/2025 XR PELVIS 1-2 VIEW 03/11/2025 8:41 AM Referring clinician's provided indication for this examination in Epic:S/P Fall COMPARISON: Pelvis/right hip radiographs 02/07/2025 IMPRESSION: [...] (10/05/2024 10:40 AM EST) HDL 77 mg/dL [facility] Comment: Interpretation <40 mg/dL: Low HDL cholesterol (major risk factor for CHD) Greater than or equal to 60 mg/dL: High HDL cholesterol ( negative risk factor for CHD) HDL - cholesterol is affected by a number of factors, e.g. smoking, excerise, hormones, sex and age. CHOLESTEROL 278(H) 0 - 240 mg/dL [facility] TRIGLYCERIDES 126 30 - 160 mg/dL [facility] LDL 176(H) 50 - 129 mg/dL [facility] Comment: LDL levels in terms of risk for coronary heart disease: <100 mg/dL: Optimal 100-129 mg/dL: Near or above optimal 130-159 mg/dL: Borderline high 160-189 mg/dL: High >190 mg/dL: Very High CARDIAC RISK RATIO 3.6 3.3 - 4.4 C [facility] Blood 10/05/2024 10:4 0 AM EST 10/05/2024 10:42 AM EST Brandon Granados MD LAB BLOOD ORDERABLES [facility] [address] [place], [place] [phone] * Outside Hepatitis C Virus Screening (04/19/2018) Hepatitis C Screening - External Neg Marilyn Rojas MD LAB BLOOD ORDERABLES Virginie l Result from Last 3 Months or Most Recently Relevant to Health Maintenance Insurance [employer] MEDICARE SUPPLEMENT MEDICARE PART A & B [facility]LY [facility] MEDICARE SUPPLEMENT MEDICARE PART A & B [facility] FOR LIFE MEDICARE SUPPLEMENT FOR LIFE MEDICARE SUPPLEMENT [facility] FOR LIFE MEDICARE SUPPLEMENT MEDICARE PART A & B [facility] FOR LIFE MEDICARE SUPPLEMENT [facility] FOR LIFE MEDICARE SUPPLEMENT MEDICARE PART A & B [facility] FOR LIFE MEDICARE SUPPLEMENT MEDICARE PART A & B FOR LIFE MEDICARE SUPPLEMENT MEDICARE PART A & B Care Teams Latex Ribbon Machine Operator Relationship Specialty Start Date End Date Brandon Granados MD [address] [place] [phone] [email or web address] PCP - General Internal Medicine 09/11/20 Korey Coffman MD [address] [place] [address] Cardiology 03/13/21 Nj Francis MD [address] [place] [address] [email or web address] Urology 02/16/22 Joanna Duran MD [address] [place] [address] [address] [place] [phone] Obstetrics and Gynecology 02/16/22 Brandon Granados MD [address] [place] [address] [email or web address] Insurance Assigned Provider 12/24/23 Additional Source Comments The information contained in this document represents components of the legal health record. It is not the complete legal health record.[facility]
--- OUTSIDE RECORDS SUMMARY | 2025-06-10 13:43 | XMS_ITS | Encounter Summary ---
Author Organization [facility] Address [address] [place] [address] [place] [address] Phone Care Team Providers Care Cobol Mainframe Developer Name Role Phone Brandon Granados MD Primary Care Provider [phone] Korey Coffman MD Unavailable Nj Francis MD Unavailable [phone] Joanna Duran MD Unavailable [phone] Brandon Granados MD Unavailable [phone] Heaven Tamayo RN Unavailable [phone] Reason for Referral * MRI/CAT Scan - Closed Specialty Diagnoses / Procedures Referred By Lulu gamboa Referred To Contact Radiology Diagnoses Malignant neoplasm of kidney excluding renal pelvis, unspecified laterality Procedures CT Abdomen/Pelvis Anne Oswald NP Phone: tel: fax: Referral ID Status Reason Start Date Expiration Date Visits Re quested Visits Authorized [id number] Closed 09/19/2023 1 1 * MRI/CAT Scan - Closed Specialty Diagnoses / Procedures Referred By Lulu gamboa Referred To Contact Radiology Diagnoses Malignant neoplasm of kidney excluding renal pelvis, unspecified laterality Procedures CT Chest Anne Oswald NP Phone: tel: fax: Referral ID Status Reason Start Date Expiration Date Visits Re quested Visits Authorized [id number] Closed 09/19/2023 1 1 Encounter Details Date Type Department Care Team (Late Contact Info) Description 09/19/2023 Transcribe Orders Virtual Department [address] [place] [address] Anne Oswald NP [address] [place] [address] [place] [address] Malignant neoplasm of kidney excluding renal pelvis, [...] Encounters Date Type Department Care Team (Late Contact Info) Description 07/04/2025 10:30 AM EST Office Visit [facility] Orthopedics & Sports Medicine [address] [place] [address] Phil Brand PA-C [address] [place] [address] Orthopedics & Sports Medicine, [place] [address] 09/06/2025 11:30 AM EST Office Visit [facility] Internal Medicine [address] [place] [address] Brandon Granados MD 40 [place] [address] 03/07/2026 9:10 AM EDT Office Visit [facility] [address] [place] [address] [place] [address] Henry Dias DO [address] [place] [address] [email or web address] documented as of this encounter Results * [...] clinician's provided indication for this examination in [facility]: Outside Radiology Order; MALIGNANT NEOPLASM KIDNEY, EXCEPT [...] in the chest, abdomen, orpelvis. Anne Oswald RETREADER IMG CT ABD/PELVIS Final Resu lt * [...] clinician's provided indication for this examination in [facility]:Outside Radiology Order; MALIGNANT NEOPLASM KIDNEY, EXCEPT RENAL [...] in the chest, abdomen, orpelvis. Anne Oswald RETREADER IMG CT CHEST Final Result documented in this encounter Visit Diagnoses Diagnosis Malignant neoplasm of kidney excluding renal pelvis, unspecified laterality- Primary Malignant neoplasm of kidney excluding renal pelvis, unspecified laterality documented in this encounter Additional Health Concerns Assessment Noted Time PHQ-2 Depression Total Score: 0 06/25/20 2:14 PM EST documented as of this encounter Care Teams Cobol Mainframe Developer Relationship Specialty Start Date End Date Brandon Granados MD [address] [place] [address] [email or web address] PCP - General Internal Medicine 09/11/20 Korey Coffman MD [address] [address] Cardiology 03/13/21 Nj Francis MD [address] [place] [address] [email or web address] Urology 02/16/22 Joanna Duran MD [address] [place] [address] [address] [place] [address] Obstetrics and Gynecology 02/16/22 Brandon Granados MD [address] [place] [address] [email or web address] Insurance Assigned Provider 12/24/23 Heaven Tamayo RN [address] [place] [address] [id number] PHCM Supervisor Lump Room 03/12/24 04/03/24 documented as of this encounter Additional Source Comments The information contained in this document represents components of the legal health record. It is not the complete legal health record.[facility]
--- OUTSIDE RECORDS SUMMARY | 2025-06-10 13:44 | XMS_ITS | Encounter Summary ---
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 Re evaluation at urgent care is reasonable * Swati Mandujano RN - 06/10/2025 10:14 AM EDT Spoke to Alexandra. States since she was diagnosed with a DVT, she has been taking aspirin daily. The pain has been getting better. States for the last couple days, she has right foot swelling. This is not normal for her. Also looks like the whole foot is bruised. States the leg, is also red. No chestpain or SOB. States she spoke to Dr Canas's office, Vascular, this morning, and they said they looked at her report, and they weren't too worried about it. States they did advise her to go to [facility], because they have Ultrasound. Agreed, and She is going now. * Charlotte Erickson - 06/10/2025 9:22 AM EDT Patient called in she states she had a tiny blood clot on her RT leg. She states now the area is white and around the area is bright red. She states her foot in swollen. She does have a referral out to [facility] but she is not sure if she should wait that long. Please advise. documented in this encounter Plan of Treatment Upcoming Encounters Date Type Department Care Team (Late st Contact Info) Description 07/04/2025 10:30 AM EST Office Visit [facility] Orthopedics & Sports Medicine [address] [place] [address] Phil Brand PA-C [address] [place] [address] Orthopedics & Sports Medicine, [place] [address] 09/06/2025 11:30 AM EST Office Visit [facility] Internal Medicine [address] [place] [address] Brandon Granados MD 40 [place] [address] 03/07/2026 9:10 AM EDT Office Visit [facility] [address] [place] [address] Henry Dias DO 22 [place] [address] documented as of this encounter Visit Diagnoses Not on filedocumented in this encounter Additional Health Concerns Assessment Noted Time PHQ-2 Depression Total Score: 0 11/07/19 25 1:40 PM EDT documented as of this encounter Care Teams Sports Activities Foul Judge Relationship Specialty Start Date End Date Brandon Granados MD [address] [place] [address] [email or web address] PCP - General Internal Medicine 09/11/20 Korey Coffman MD [address] [address] Cardiology 03/13/21 Nj Francis MD [address] [address] [email or web address] Urology 02/16/22 Joanna Duran MD [address] [place] [address] [address] [place] [address] Obstetrics and Gynecology 02/16/22 Brandon Granados MD 40 [place] [address] [email or web address] Insurance Assigned Provider 12/24/23 documented as of this encounter Additional Source Comments The information contained in this document represents components of the legal health record. It is not the complete legal health record.[facility]
== END 2025-06-10 12:40 | disposition home or self-care (01) ==
PROVIDERS: PCP Internal Medicine; Visit Provider Nurse Practitioner Family
DX: M25.471 Effusion, right ankle (principal)

== ENCOUNTER → 2025-06-10 10:57 | Outpatient (BNVA) | payer MEDICARE, OTHER, SELFPAY | PROVIDERS: PCP Internal Medicine; Visit Provider Nurse Practitioner Family | DX: M25.471 Effusion, right ankle (principal) | CPT/HCPCS: 99212 ==

== ENCOUNTER 2025-07-05 10:50 | Outpatient (AMB) | payer MEDICARE, OTHER, SELFPAY ==
--- NOTE | 2025-07-05 11:04 | A.OFFVIS_ITS ---
Vital Signs 07/05/25 11:16 Height 5 ft 1 in Weight 154 lb BMI 29.1 BP 142/84 H Blood Pressure Location Rt brachial Position Sitting Pulse 78 Pulse Source Pulse Oximeter Pulse Oximetry (%) 96 Oxygen Delivery Method Room Air Intake Visit Reasons: gerd Intake Note: Est pt for mgmt of GERD. Hx of HP infx. CC: Pt denies any new GI concerns or sx at this time. Confirms she is taking currently Rx'd therapies w/o complications. Under Water Assistant Required: No Accompanied by: Self / Same As Patient Allergies silver sulfadiazine (From SILVADENE) Allergy (Mild, Verified 07/05/25 11:09) RASH Sulfa (Sulfonamide Antibiotics) Allergy (Mild, Verified 07/05/25 11:09) mild HPI HPI gerd: Details: LAST VISIT: Gastroesophageal reflux disease Diverticulosis Plan Patient will continue taking pantoprazole daily. Avoid dietary triggers and late night snacking. Staying upright for minimum 3 hours after meals discussed with patient. History of diverticulosis found on colonoscopy. Patient will continue high-fiber diet. Increase fluid intake and activity to promote better bowel motility. Follow-up in 6 months, sooner on as needed basis. She is agreeable to this plan and verbalizes understanding of instructions. She was given the opportunity to ask questions and all questions answered. ? Thank you for allowing me to participate in her care Refilled pantoprazole 20 mg PO DAILY 90 tabs 3RF TODAY'S VISIT Patient is here today for follow-up. Patient reports that she has been doing well since last visit. Patient reports that she is taking pantoprazole daily. Occasionally patient has to take Tums in the evening depending on what she eats. Patient reports that she is trying to eat healthy. Patient states that she is not eating too much bread. She is trying to make smoothies. Patient denies dyspepsia, dysphagia or odynophagia. Denies melena, hematochezia, unintentional weight loss or ribbon like stools. Patient denies any GI concerning symptoms today [facility] Medical History Right ankle swelling Diverticulosis Kidney tumor Gastroesophageal reflux disease Helicobacter pylori (H. pylori) Tubular adenoma Other and unspecified hyperlipidemia Essential hypertension Surgical History History of surgery on arm History of bunionectomy of right great toe Hx of blepharoplasty History of esophagogastroduodenoscopy (EGD) Hx of colonoscopy H/O bilateral hip replacements History of cardiac catheterization (~07/05/18) Family History Father Myocardial infarction Hypertension Mother Diabetes Sister CVA (cerebral vascular accident) S/P CABG x 4 Sister Myocardial infarction Social History Are you a primary child care counselor to a significant other at home: No (lives alone; recently 07/2022) Alcohol intake: former Patient Tobacco Use Status: Never used Tobacco Advance Directives Date on File: 10/01/22 Review of Systems Const Denies weight gain and Denies weight loss ENT Reports no additional complaints, Denies dysphagia and Denies odynophagia Card Reports no additional complaints Resp Reports no additional complaints GI Denies abdominal pain, Denies belching, Denies melena, Denies bloating, Denies change in bowel habits, Denies dysphagia, Denies excessive flatus, Denies dyspepsia, Denies heartburn, Denies diarrhea, Denies loose stools, Denies nausea, Denies odynophagia and Denies vomiting Musc Reports no additional complaints Neuro Reports no additional complaints Psych Reports no additional complaints Endo Reports no additional complaints Physical Exam Vital Signs: Last Vital Signs Pulse 78 07/05/25 11:16 BP 142/84 H 07/05/25 11:16 Pulse Ox 96 07/05/25 11:16 Oxygen Delivery Method Room Air 07/05/25 11:16 BMI result Body Mass Index 29.1 Const Other: Walking with cane General: healthy appearing, no acute distress and well developed Nutritional Appearance: well nourished Orientation/consciousness: patient oriented x3 Eyes General: appearance normal, both eyes and all related structures Neck Neck: Yes normal visual inspection, Yes full ROM and Yes trachea midline Thyroid: Thyroid normal Resp Effort & Inspection: normal respiratory effort, able to speak in complete sentences, no tracheal deviation and symmetric chest movement Auscultation: clear to auscultation bilaterally Cardio Rate: regular rate GI Inspection: Yes normal to inspection and No distended Palpation (GI): Soft to palpation, not firm, nontender and No hepatosplenomegaly present Auscultation: normal bowel sounds General: Yes no CVA tenderness Back/Spine/Pelvis Back: no CVA tenderness Skin General skin exam: elasticity normal, turgor normal and dry skin Neuro General: patient oriented x3 Extrem Other: Bilateral lower extremity edema Psych Appearance: grossly normal Mental Status: mental status grossly normal Speech and movement: Normal speech and movement present Affect: normal affect Attitude: cooperative Thought process: Normal thought process present Thought content: Normal thought content present Insight: Good insight present (Psych) Judgement: Good judgement present (Psych) Assessment & Plan Assessment & Plan (1) Gastroesophageal reflux disease: Code(s): K21.9 - Gastro-esophageal reflux disease without esophagitis Category: Medical Qualifiers: Esophagitis presence: without esophagitis Qualified Code(s): K21.9 - Gastro-esophageal reflux disease without esophagitis (2) Diverticulosis: Code(s): K57.90 - Diverticulosis of intestine, part unspecified, without perforation or abscess without bleeding Category: Medical Plan Patient will continue taking pantoprazole daily. Avoid dietary triggers and late night snacking. Staying upright for minimum 3 hours after meals discussed with patient. Patient will try smaller meals and more often. Follow-up in 6 months. Patient will call us if she will have any GI concerning symptoms. Patient is agreeable to this plan and verbalizes understanding of instructions. She was given the opportunity to ask questions and all questions answered. Thank you for allowing me to participate in her care Medications: Refilled pantoprazole 20 mg PO DAILY 90 tabs 3RF Coding Level of Care Code Est Pt Level 3 (43922) Diagnoses Gastroesophageal reflux disease without esophagitis K21.9 Esophagitis presence: without esophagitis Diverticulosis K57.90 Time Spent (min) 25 Comment 15 minutes spent with patient and additional 10 minutes spent reviewing her records
[2025-07-05 11:16] VITALS: BP 142/84; PULSE 78; O2SAT 96; BMI 29.1
--- OUTSIDE RECORDS SUMMARY | 2025-07-05 11:38 | XMS_ITS | Encounter Summary ---
Author Organization [facility] Address [address] [place] [address] [place] [address] Phone Care Team Providers Care Php Mysql Web Developer Name Role Phone Brandon Granados MD Primary Care Provider [phone] Brandon Granados MD Unavailable [phone] Korey Coffman MD Unavailable [phone] Nj Francis MD Unavailable [phone] Joanna Duran MD Unavailable [phone] Brandon Granados MD Unavailable [phone] Heaven Tamayo RN Unavailable Encounter Details Date Type Department Care Team (Late st Contact Info) Description 02/11/2022 Procedure Pass [facility], [address] [address] Social History Tobacco Use Types Packs/Day Years [...] Care Team (Late st Contact Info) Description 09/06/2025 11:30 AM EST Office Visit [facility] [place] Internal Medicine 40 [place], [place] [phone] Brandon Granados MD 40 [place] [address] 03/07/2026 9:10 AM EDT Office Visit [facility] 22 [place] [address] Henry Dias DO 22 [place] [address] documented as of this encounter Visit Diagnoses Not on filedocumented in this encounter Additional Health Concerns Assessment Noted Time PHQ-2 Depression Total Score: 0 05/07/20 10:03 AM EDT documented as of this encounter Care Teams Php Mysql Web Developer Relationship Specialty Start Date End Date Brandon Granados MD 40 [place] [address] PCP - General Internal Medicine 09/11/20 Brandon Granados MD [address] [place] [address] Insurance Assigned Provider 11/22/20 08/21/22 Korey Coffman MD [address] [address] Cardiology 03/13/21 Nj Francis MD [address] [address] Urology 02/16/22 Joanna Duran MD [address] [place] [address] Drive [address] [place] [address] Obstetrics and Gynecology 02/16/22 Brandon Granaods MD [address] [place] [address] [email or web address] Insurance Assigned Provider 12/24/23 Heaven Tamayo, RN [address] [place] [address] [email or web address] [facility] Childcare Center Director 03/12/24 04/03/24 documented as of this encounter Additional Source Comments The information contained in this document represents components of the legal health record. It is not the complete legal health record.[facility]
--- OUTSIDE RECORDS SUMMARY | 2025-07-05 11:38 | XMS_ITS | Encounter Summary ---
Author Organization [facility] Address [address] [place] [address] [place] [address] Phone Care Team Providers Care Insurance Verifier Name Role Phone Brandon Granados MD Primary Care Provider [phone] Brandon Granados MD Unavailable [phone] Korey Coffman MD Unavailable [phone] Nj Francis MD Unavailable [phone] Joanna Duran MD Unavailable [phone] Brandon Granados MD Unavailable [phone] Heaven Tamayo RN Unavailable [phone] Encounter Details Date Type Department Care Team (Late st Contact Info) Description 08/18/2022 Procedure Pass [facility], [address] [address] Social History Tobacco Use Types Packs/Day Years [...] Description 09/06/2025 11:30 AM EST Office Visit [facility] [place] Internal Medicine 40 [place], [place] [phone] Brandon Granados MD 40 [place] [address] 03/07/2026 9:10 AM EDT Office Visit [facility] [address] [place] [address] Henry Dias DO 22 [place] [address] [email or web address] documented as of this encounter Visit Diagnoses Not on filedocumented in this encounter Additional Health Concerns Assessment Noted Time PHQ-2 Depression Total Score: 0 06/25/20 22 2:14 PM EST documented as of this encounter Care Teams Insurance Verifier Relationship Specialty Start Date End Date Brandon Granados MD 40 [place] [address] PCP - General Internal Medicine 09/11/20 Brandon Granados MD [address] [place] [address] Insurance Assigned Provider 11/22/20 08/21/22 Korey Coffman MD [address] [address] Cardiology 03/13/21 Nj Francis MD [address] [facility] [place] [address] [place] [address] Urology 02/16/22 Joanna Duran MD [address] [place] [address] Drive [address] [place] [address] Obstetrics and Gynecology 02/16/22 Brandon Granados MD [address] [place] [address] [email or web address] Insurance Assigned Provider 12/24/23 Heaven Tamayo, RN [address] [place] [address] [email or web address] [facility] Patient Insurance Clerk 03/12/24 04/03/24 documented as of this encounter Additional Source Comments The information contained in this document represents components of the legal health record. It is not the complete legal health record.[facility]
--- OUTSIDE RECORDS SUMMARY | 2025-07-05 11:38 | XMS_ITS | Encounter Summary ---
Author Organization [facility] Address [address] [place] [address] [place] [address] Phone Care Team Providers Care Rodeo Performer Name Role Phone Brandon Granados MD Primary Care Provider [phone] Brandon Granados MD Unavailable [phone] Korey Coffman MD Unavailable [phone] Nj Francis MD Unavailable [phone] Joanna Duran MD Unavailable [phone] Brandon Granados MD Unavailable [phone] Heaven Tamayo RN Unavailable [phone] Encounter Details Date Type Department Care Team (Late st Contact Info) Description 02/03/2022 Procedure Pass [facility], Ct Scan - [address] [address] Social History Tobacco Use Types Packs/Day Years [...] Description 09/06/2025 11:30 AM EST Office Visit [facility] [place] Internal Medicine [address] [place], [place] [phone] Brandon Granados MD 40 [place] [address] 03/07/2026 9:10 AM EDT Office Visit [facility] 22 [place] [address] Henry Dias DO 22 [place] [address] documented as of this encounter Visit Diagnoses Not on filedocumented in this encounter Additional Health Concerns Assessment Noted Time PHQ-2 Depression Total Score: 0 05/07/20 10:03 AM EDT documented as of this encounter Care Teams Rodeo Performer Relationship Specialty Start Date End Date Brandon Granados MD 40 [place] [address] PCP - General Internal Medicine 09/11/20 Brandon Granados MD [address] [place] [address] Insurance Assigned Provider 11/22/20 08/21/22 Korey Coffman MD [address] [address] [place] [address] Cardiology 03/13/21 Nj Francis MD [address] [place] [address] [place] [address] Urology 02/16/22 Joanna Duran MD [address] [place] [address] Drive [address] [place] [address] Obstetrics and Gynecology 02/16/22 Brandon Granados MD [address] [place] [address] [email or web address] Insurance Assigned Provider 12/24/23 Heaven Tamayo, RN [address] [place] [address] [email or web address] [facility] Associate Professor Of Pathology 03/12/24 04/03/24 documented as of this encounter Additional Source Comments The information contained in this document represents components of the legal health record. It is not the complete legal health record.[facility]
--- OUTSIDE RECORDS SUMMARY | 2025-07-05 11:38 | XMS_ITS | Encounter Summary ---
Author Organization [facility] Address [address] [facility] [address] [place] [address] Phone Care Team Providers Care Hockey Scout Name Role Phone Brandon Granados MD Primary Care Provider [phone] Brandon Granados MD Unavailable [phone] Korey Coffman MD Unavailable [phone] Nj Francis MD Unavailable [phone] Joanna Duran MD Unavailable [phone] Brandon Granados MD Unavailable [phone] Heaven Tamayo RN Unavailable [phone] Reason for Referral * MRI/CAT Scan - Closed Specialty Diagnoses / Procedures Referred By Contkarson t Referred To Contact Radiology Diagnoses Other specified disorders of kidney and ureter Procedures MRI Abdomen Bozena Haines MD Phone: tel: fax: Referral ID Status Reason Start Date Expiration Date Visits Re quested Visits Authorized [id number] Closed 08/18/2022 08/18/2023 1 1 Encounter Details Date Type Department Care Team (Late st Contact Info) Description 08/18/2022 Transcribe Orders Virtual Department 30 [place], [place] [phone] Bozena Haines MD [address] [place] [address] [place] [address] Other specified disorders of kidney and [...] Description 09/06/2025 11:30 AM EST Office Visit [facility] Internal Medicine 40 [place] [address] Brandon Granados MD 40 [place] [address] 03/07/2026 9:10 AM EDT Office Visit [facility] [address] [place] [address] Henry Dias DO 22 [place] [address] documented as of this encounter Results * [...] cellcarcinoma. 2. No evidence of abdominal metastasis. Bozena Haines MD IMG MR ABDOMEN Final Res ult documented in this encounter Visit Diagnoses Diagnosis Other specified disorders of kidney and ureter- Primary Other specified disorders of kidney and ureter documented in this encounter Additional Health Concerns Assessment Noted Time PHQ-2 Depression Total Score: 0 06/25/20 22 2:14 PM EST documented as of this encounter Care Teams Hockey Scout Relationship Specialty Start Date End Date Brandon Granados MD 40 [place] [address] [email or web address] PCP - General Internal Medicine 09/11/20 Brandon Granados MD 40 [place] [address] [email or web address] Insurance Assigned Provider 11/22/20 08/21/22 Korey Coffman MD [address] [place] [address] Cardiology 03/13/21 Nj Francis MD [address] [place] [address] Urology 02/16/22 Joanna Duran MD [address] [place] [address] [address] [place] [address] Obstetrics and Gynecology 02/16/22 Brandon Granados MD [address] [place] [address] [email or web address] Insurance Assigned Provider 12/24/23 Heaven Tamayo, RN [address] [place] [address] [email or web address] [facility] 03/12/24 04/03/24 documented as of this encounter Additional Source Comments The information contained in this document represents components of the legal health record. It is not the complete legal health record.[facility]
--- OUTSIDE RECORDS SUMMARY | 2025-07-05 11:39 | XMS_ITS | Encounter Summary ---
Author Organization [facility] Address [address] [place] [address] Phone Care Team Providers Care Fiberglass Auto Body Repairer Name Role Phone Brandon Granados MD Primary Care Provider Korey Coffman MD Unavailable [phone] Nj Francis MD Unavailable [phone] Joanna Duran MD Unavailable [phone] Brandon Granados MD Unavailable [phone] Heaven Tamayo RN Unavailable [phone] Encounter Details Date Type Department Care Team (Late st Contact Info) Description 09/19/2023 Procedure Pass [facility], Ct Scan - [address] [address] Social History Tobacco Use Types Packs/Day Years [...] Description 09/06/2025 11:30 AM EST Office Visit [facility] Internal Medicine 40 [place] [address] Brandon Granados MD 40 [place] [address] 03/07/2026 9:10 AM EDT Office Visit [facility] [address] [place] [address] [phone] Henry Dias DO [address] [place] [address] [phone] documented as of this encounter Visit Diagnoses Not on filedocumented in this encounter Additional Health Concerns Assessment Noted Time PHQ-2 Depression Total Score: 0 09/29/19 24 11:29 AM EST documented as of this encounter Care Teams Fiberglass Auto Body Repairer Relationship Specialty Start Date End Date Brandon Granados MD 40 [place] [address] PCP - General Internal Medicine 09/11/20 Korey Coffman MD [address] [address] Cardiology 03/13/21 Nj Francis MD [address] [address] Urology 7/5/22 Joanna Duran MD [address] [place] [address] Drive [address] [place] [address] Obstetrics and Gynecology 02/16/22 Brandon Granados MD 40 [place] [address] [email or web address] Insurance Assigned Provider 12/24/23 Heaven Tamayo, RN [address] [place] [address] [email or web address] [facility] Sandal Parts Assembler 03/12/24 04/03/24 documented as of this encounter Additional Source Comments The information contained in this document represents components of the legal health record. It is not the complete legal health record.[facility]
--- OUTSIDE RECORDS SUMMARY | 2025-07-05 11:39 | XMS_ITS | Clinical Summary ---
Author Organization [facility] Address [address] [facility] [address] [place] [address] Phone Care Team Providers Care Elevator Erector Helper Name Role Phone Brandon Granados MD Primary Care Provider [phone] Korey Coffman MD Unavailable [phone] Nj Francis MD Unavailable [phone] Joanna Duran MD Unavailable [phone] Brandon Granados MD Unavailable [phone] Allergies Active Allergy Reactions Criticality Noted Date [...] reported), Reported on 06/05/2025 blood pressure monitor KitIndications:Essentia l hypertension 1 Units by Miscellaneous route daily. 1 kit 023 Active docosahexaenoic acid/epa (FISH OIL ORAL) Take 1 capsule by mouth daily. Active pantoprazole (PROTONIX) 20 MG tablet Take 20 mg by mouth daily. 024 Active amoxicillin (AMOXIL) 500 MG capsule Take 4 capsule 1 hour prior to dental procedures 024 Active rosuvastatin (CRESTOR) 10 MG tabletIndications:Pure hypercholesterolemia TAKE 1 TABLET BY MOUTH DAILY 90 tablet 3 025 Active CALCIUM ORAL Take 1 capsule by mouth 2 (two) times a day. Active MAGNESIUM ORAL Take 1 capsule by mouth every evening. glycinate Active niacinamide (PUREVITA VITAMIN B3 ORAL) Take by mouth. 3-4 x daily Active aspirin 81 MG EC tablet Take 81 mg by mouth every morning. 025 Active hydroCHLOROthiazide 12.5 MG tabletIndications:Flip n essential hypertension Take 1 tablet (12.5 mg total) by mouth daily. 100 tablet 3 025 Active Active Problems Problem Noted Date Diagnosed Date Pain in right lower leg 05/30/2025 Assessment & Plan (05/30/2025 12:25 PM EDT): Patient with a recent fall who was seen in [facility] emergency room on 05/25 after she tripped [...] scan to be done by 02/16/2025 at [facility]. She should follow-up within 1 [...] days prior to the infusion at a [facility] facility. She is due for repeat DXA scan on February 11, 2023 and she should have this done at the [facility] at [facility] so that we can see [...] the medical management that was instituted at [facility] and recommend Reclast administration. She is not due for repeat DXA scan until 02/11/2023 but I suggest that she start doing DXA scans at [facility] since he is transitioning her care to this organization. Vitamin D deficiency 08/22/2019 Scoliosis Encounters Date Type Department Care Team Description 06/14/2025 1:42 PM EDT - 06/14/2025 5:19 PM EDT Emergency [facility] [address] [place] [address] Discharge Disposition: Home or Self Care 06/10/2025 Telephone [facility] Internal Medicine 40 [place] [address] Brandon Granados MD Thrombophilia 06/07/2025 Telephone [facility] Internal Medicine [address] [place] [address] Brandon Granados MD Request for referral 06/05/2025 8:30 AM EDT Office Visit [facility] Internal Medicine 40 [place] [address] Brandon Granados MD Benign essential hypertension (Primary Dx); 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 at [address] [address] Christiano Pressley PA-C Sprain of right ankle, unspecified ligament, initial encounter (Primary Dx); Pain and swelling of ankle, right 05/30/2025 11:20 AM EDT Office Visit [facility] Internal Medicine 40 [facility] [place] [address] Eliceo Newby PA-C Pain in right lower leg (Primary Dx) 05/30/2025 Documentation [facility] Internal [facility] [address] [facility] [place] [address] Brandon Granados MD 05/30/2025 Telephone [facility] Internal [facility] [address] [facility] [place] [address] Brandon Granados MD Ankle Pain/Swelling 05/29/2025 Orders Only [facility] Internal [facility] [address] [facility] [place] [address] ProviderMarilyn MD 05/28/2025 Orders Only [facility] Internal [facility] [address] [facility] [place] [phone] Provider, MD Marilyn from Last 3 Months [...] Intimate Partner Violence Answer Date R ecorded Are you denied basic needs s uch as food, clothing, or medical care? No 06/14/2025 In the past 12 months have y ou been in a relationship with a person who hurts, threatens, or tries to control you? No 06/14/2025 Are you denied basic needs s uch as food, clothing, or medical care? No 06/14/2025 In the past 12 months have y ou been in a relationship with a person who hurts, threatens, or tries to control you? No 06/14/2025 Comments No Sex and Gender Information Value [...] Sign Reading Time Taken Comments Blood Pressure 184/97 06/14/2025 3:12 PM EDT Pulse 70 06/14/2025 3:12 PM EDT Temperature 36 C (96.8 F) 06/14/2025 3:12 PM EDT Respiratory Rate 16 06/14/2025 3:12 PM EDT Oxygen Saturation 99% 06/14/2025 3:12 PM EDT Inhaled Oxygen Concentration - - Weight 68 kg (150 lb) 06/14/2025 1:31 PM EDT Height 157.5 cm (5' 2 ) 06/14/2025 1:31 PM EDT Body Mass Index 27.44 06/14/2025 1:31 PM EDT Plan of Treatment Upcoming Encounters Date Type Department Care Team (Late st Contact Info) Description 09/06/2025 11:30 AM EST Office Visit [facility] Internal Medicine 40 [place] [address] Brandon Granados MD 40 [place] [address] 03/07/2026 9:10 AM EDT Office Visit [facility] [address] [place] [address] [phone] Henry Dias DO [address] [place] [address] Health Maintenance Due Date Last Done Comments RSV VACCINE (1 - 1-dose 75+ series) 01/05/2023 INFLUENZA VACCINE (#1) 2025 4, 05/12/2023, 06/11/2022, Additional history exists COVID-19 VACCINE ( - 2024- season) 2025 09/05/2021, 01/05/2021, 12/08/2020 DEPRESSION SCREENING 11/06/2025 11/06/2024 Adult Td,Tdap Booster 12/03/2025 12/04/2015 , 08/15/2009, 05/30/1999, Additional history exists BLOOD PRESSURE 12/04/2025 06/05/2025 POTASSIUM LEVEL 05/25/2026 05/25/2025, 02/13, 10/05/2024, Additional history exists LIPID PANEL 10/05/2029 [...] 05/25/2025 OUTSIDE SERUM CREATININE LEVEL Routine 05/25/2025 HM DEXA SCAN Routine 02/18/2025 9:44 AM [...] encounter note for this date of service. Christiano Pressley PA-C IMG XR LOWER EXTREMITY Final Result * Outside Imaging Report Only (05/29/2025 7:54 AM EDT) Historical Provider IMLaure XR CHEST Final Res ult * Outside Imaging Report Only (05/29/2025 7:41 AM EDT) Result [facility] Provider IMG XR CHEST Final Res ult * Outside Imaging Report Only (05/29/2025 7:31 AM EDT) Result [facility] Provider IMG XR CHEST Final Res ult * Outside Imaging Report Only (05/29/2025 7:27 AM EDT) Result [facility] Provider IMG XR CHEST Final Res ult * Outside Imaging Report Only (05/25/2025 10:17 AM EDT) Result [facility] Provider IMG XR CHEST Final Res ult * Outside TSH Level (05/25/2025) TSH - External 1.82 0.5 - 5 uIU/L Result [facility] LAB BLOOD ORDERABLES Virginie l Result * Outside Potassium Level (05/25/2025) Potassium level - External 4.3 3.4 - 5.0 mmol/L Result [facility] LAB BLOOD ORDERABLES Virginie l Result * (ABNORMAL) Outside Serum Creatinine Level (05/25/2025) Creatinine, serum - External 0.6(A) 0.8 - 1.3 mg/dL Result [facility] LAB BLOOD ORDERABLES Virginie l Result * Outside ALT Level (05/25/2025) ALT - External 15 5 - 30 U/L Result [facility] LAB BLOOD ORDERABLES Virginie l Result * HM DEXA SCAN (02/18/2025 9:44 AM EDT) Result [facility] HEALTH MAINTENANCE Final Result * (ABNORMAL) Lipid panel (10/05/2024 10:40 AM EST) HDL 77 mg/dL [facility] Comment: Interpretation <40 mg/dL: Low HDL cholesterol (major risk factor for CHD) Greater than or equal to 60 mg/dL: High HDL cholesterol ( negative risk factor for CHD) HDL - cholesterol is affected by a number of factors, e.g. smoking, excerise, hormones, sex and age. CHOLESTEROL 278(H) 0 - 240 mg/dL [facility] TRIGLYCERIDES 126 30 - 160 mg/dL [facility] LDL 176(H) 50 - 129 mg/dL [facility] Comment: LDL levels in terms of risk for coronary heart disease: <100 mg/dL: Optimal 100-129 mg/dL: Near or above optimal 130-159 mg/dL: Borderline high 160-189 mg/dL: High >190 mg/dL: Very High CARDIAC RISK RATIO 3.6 3.3 - 4.4 C [facility] Blood 10/05/2024 10:4 0 AM EST 10/05/2024 10:42 AM EST Brandon Granados MD LAB BLOOD BKR ORDERABLES Virginie l Result [facility] [address] [place], [place] [phone] * Outside Hepatitis C Virus Screening (04/19/2018) Hepatitis C Screening - External Neg Historical Provider LAB BLOOD ORDERABLES Virginie l Result from Last 3 Months or Most Recently Relevant to Health Maintenance Insurance [employer] MEDICARE SUPPLEMENT MEDICARE PART A & B [employer] MEDICARE SUPPLEMENT MEDICARE PART A & B FOR [employer] MEDICARE SUPPLEMENT [facility] LIFE MEDICARE SUPPLEMENT [facility] FOR [employer] MEDICARE SUPPLEMENT MEDICARE PART A & B FOR LIFE MEDICARE SUPPLEMENT FOR LIFE MEDICARE SUPPLEMENT MEDICARE PART A & B FOR LIFE MEDICARE SUPPLEMENT MEDICARE PART A & B [facility] [employer] [facility] MEDICARE SUPPLEMENT MEDICARE PART A & B Care Teams Elevator Erector Helper Relationship Specialty Start Date End Date Brandon Granados MD [address] [place] [address] [place] [address] [email or web address] PCP - General Internal Medicine 09/11/20 Korey Coffman MD [address] [place] [address] Cardiology 03/13/21 Nj Francis MD [address] [place] [address] [email or web address] Urology 02/16/22 Joanna Duran MD [address] [place] [address] [address] [place] [phone] Obstetrics and Gynecology 02/16/22 Brandon Granados MD [address] [place] [address] [email or web address] Insurance Assigned Provider 12/24/23 Additional Source Comments The information contained in this document represents components of the legal health record. It is not the complete legal health record.[facility]
--- OUTSIDE RECORDS SUMMARY | 2025-07-05 11:39 | XMS_ITS | Encounter Summary ---
Author Organization [facility] Address [address] [facility] [address] [place] [address] Phone Care Team Providers Care New Accounts Clerk Name Role Phone Brandon Granados MD Primary Care Provider [phone] Korey Coffman MD Unavailable [phone] Nj Francis MD Unavailable [phone] Joanna Duran MD Unavailable [phone] Barndon Granados MD Unavailable Heaven Tamayo RN Unavailable [phone] Reason for Referral * MRI/CAT Scan - Closed Specialty Diagnoses / Procedures Referred By Lulu gamboa Referred To Contact Radiology Diagnoses Malignant neoplasm of kidney excluding renal pelvis, unspecified laterality Procedures CT Abdomen/Pelvis Anne Oswald NP Phone: tel: fax: Referral ID Status Reason Start Date Expiration Date Visits Re quested Visits Authorized [id number] Closed 09/19/2023 1 1 * MRI/CAT Scan - Closed Specialty Diagnoses / Procedures Referred By Lulu gamboa Referred To Contact Radiology Diagnoses Malignant neoplasm of kidney excluding renal pelvis, unspecified laterality Procedures CT Chest Anne Oswald NP Phone: tel: fax: Referral ID Status Reason Start Date Expiration Date Visits Re quested Visits Authorized [id number] Closed 09/19/2023 1 1 Encounter Details Date Type Department Care Team ([facility] Contact Info) Description 09/19/2023 Transcribe Orders Virtual Department 30 [place] [address] Anne Oswald NP [address] [place] [address] [place] [address] Malignant neoplasm of kidney excluding renal pelvis, [...] Upcoming Encounters Date Type Department Care Team ([facility] Contact Info) Description 09/06/2025 11:30 AM EST Office Visit [facility] Internal Medicine 40 [place], [place] [phone] Brandon Granados MD 40 [place] [address] 03/07/2026 9:10 AM EDT Office Visit [facility] [address] [place] [address] [place] [address] ArunHenry DO [address] [place] [address] [email or web address] documented as of this encounter Results * [...] the chest, abdomen, orpelvis. Anne Oswald NP IMG CT ABD/PELVIS Final Resu lt * [...] the chest, abdomen, orpelvis. Anne Oswald NP [facility] CHEST Final Result documented in this encounter Visit Diagnoses Diagnosis Malignant neoplasm of kidney excluding renal pelvis, unspecified laterality- Primary Malignant neoplasm of kidney excluding renal pelvis, unspecified laterality documented in this encounter Additional Health Concerns Assessment Noted Time PHQ-2 Depression Total Score: 0 06/25/20 22 2:14 PM EST documented as of this encounter Care Teams New Accounts Clerk Relationship Specialty Start Date End Date Brandon Granados MD 40 [place] [address] PCP - General Internal Medicine 09/11/20 Korey Coffman MD [address] [address] Cardiology 03/13/21 Nj Francis MD [address] [place] [address] Urology 02/16/22 Joanna Duran MD [address] [place] [address] 204 [place] [address] Obstetrics and Gynecology 02/16/22 Brandon Granados MD [address] [place] [address] Insurance Assigned Provider 12/24/23 Heaven Tamayo, RN [address] [place] [address] [email or web address] PHCM Plant Supervisor 03/12/24 04/03/24 documented as of this encounter Additional Source Comments The information contained in this document represents components of the legal health record. It is not the complete legal health record.[facility]
--- OUTSIDE RECORDS SUMMARY | 2025-07-05 11:39 | XMS_ITS | Encounter Summary ---
Author Organization [facility] Address [address] [place] [address] Phone Care Team Providers Care Cryptozoologist Name Role Phone Brandon Granados MD Primary Care Provider [phone] Korey Coffman MD Unavailable [phone] Nj Francis MD Unavailable [phone] Joanna Duran MD Unavailable [phone] Brandon Granados MD Unavailable [phone] Heaven Tamayo RN Unavailable [phone] Encounter Details Date Type Department Care Team (Late st Contact Info) Description 09/19/2023 Procedure Pass [facility], Ct Scan - [address] [address] Social History Tobacco Use Types Packs/Day Years [...] Description 09/06/2025 11:30 AM EST Office Visit [facility] Internal Medicine 40 [place] [address] Brandon Granados MD 40 [place] [address] 03/07/2026 9:10 AM EDT Office Visit [facility] [address] [place] [address] [phone] Henry Dias DO [address] [place] [address] [phone] documented as of this encounter Visit Diagnoses Not on filedocumented in this encounter Additional Health Concerns Assessment Noted Time PHQ-2 Depression Total Score: 0 09/29/19 24 11:29 AM EST documented as of this encounter Care Teams Cryptozoologist Relationship Specialty Start Date End Date Brandon Granados MD 40 [place] [address] PCP - General Internal Medicine 09/11/20 Korey Coffman MD [address] [address] Cardiology 03/13/21 Nj Francis MD [address] [address] Urology 7/5/22 Joanna Duran MD [address] [place] [address] Drive [address] [place] [address] Obstetrics and Gynecology 02/16/22 Brandon Granados MD 40 [place] [address] Insurance Assigned Provider 12/24/23 Heaven Tamayo, RN [address] [place] [address] [facility] Dcs Engineer 03/12/24 04/03/24 documented as of this encounter Additional Source Comments The information contained in this document represents components of the legal health record. It is not the complete legal health record.[facility]
== END 2025-07-05 11:37 | disposition home or self-care (01) ==
LOC: HO.HGI 10:50
PROVIDERS: PCP Internal Medicine; Visit Provider Nurse Practitioner Family
DX: K21.9 Gastro-esophageal reflux disease without esophagitis (principal); K57.90 Diverticulosis of intestine, part unspecified, without perforation or abscess without bleeding
CPT/HCPCS: 99213

== ENCOUNTER → 2025-07-05 10:50 | Outpatient (BNVA) | payer MEDICARE, OTHER, SELFPAY | PROVIDERS: PCP Internal Medicine; Visit Provider Nurse Practitioner Family | DX: K21.9 Gastro-esophageal reflux disease without esophagitis (principal); Z86.19 Personal history of other infectious and parasitic diseases; K57.90 Diverticulosis of intestine, part unspecified, without perforation or abscess without bleeding; I10 Essential (primary) hypertension | CPT/HCPCS: 99212 ==